=== PATIENT | female | born 1930 | race Caucasian/White ===

== ENCOUNTER 2017-04-13 13:14 | Emergency (ER) | payer BC ==
[2017-04-13 13:35] VITALS: BMI 30.9
--- NOTE | 2017-04-13 14:25 | PDOC ---
History of Present Illness - General History Source: Patient, Old Records Exam Limitations: No Limitations - History of Present Illness Initial Comments: 04/13/17 15:17 The patient is an 87 year old female with past medical history of hypertension, A-fib (on Elequis), hyperlipidemia, diabetes, and Parkinsons who arrives to the ED status post mechanical fall that occurred an hour ago. The patient states she was walking out of her assisted living home to the bus when she tripped and fell forward, landing on her hands and knees and hitting her head. She states she was able to get up with the help of EMS. She denies any LOC. In the ED, she complains of bruising to her forehead and hands. She denies any headache, focal deficits, or change in vision. The patient denies any recent illness, fever, chills, nausea, vomiting, diarrhea, cough, SOB, CP, palpitations , or urinary symptoms. PCP: Kurtis Perez Neurologist: Saravanan Hooker <Swati Brasher - Last Filed: 04/13/17 17:14> <Caleb Pozo - Last Filed: 04/15/17 08:18> - General Chief Complaint: Syncope/Near Syncope Stated Complaint: FALL Time Seen by Provider: 04/13/17 14:24 Past History <Swati Brasher - Last Filed: 04/13/17 17:14> - Past Medical History Anemia: Yes Asthma: No Cardiac Disorders: Yes (atrial fibrillation) CVA: Yes (TIA) COPD: No Diabetes: Yes (NIDDM) GI Disorders: (hernia) HTN: Yes Hypercholesterolemia: Yes Thyroid Disease: Yes (goiter) - Surgical History Abdominal Surgery: Yes (HERNIA) Orthopedic Surgery: (arthritis finger surgery) - Psycho/Social/Smoking Cessation Hx Anxiety: No Suicidal Ideation: No Smoking History: Unknown if ever smoked Have you smoked in the past 12 months: No Hx Alcohol Use: No Drug/Substance Use Hx: No Hx Substance Use Treatment: No <Caleb Pozo - Last Filed: 04/15/17 08:18> - Past Medical History Allergies/Adverse Reactions: Allergies Allergy/AdvReac Type Severity Reaction Status Date / Time naproxen [From Naprosyn] AdvReac Intermediate Verified 09/10/14 13:33 Home Medications: Ambulatory Orders Metoprolol Tartrate [Lopressor -] 50 mg PO DAILY #0 tablet 05/14/14 Carbidopa/Levodopa [Carbidopa-Levo ER 25-100 Tab] 1 each PO TID 03/30/14 Ferrous Sulfate [Feosol] 325 mg PO DAILY 03/30/14 Apixaban [Eliquis] 5 mg PO BID 04/16/14 Simvastatin [Zocor -] 20 mg PO HS 04/16/14 Sitagliptin Phosphate [Januvia -] 50 mg PO DAILY@0700 #30 tablet 05/06/14 Sodium Bicarbonate - 650 mg PO BID #60 tablet 05/06/14 Alogliptin Benzoate [Nesina] 25 mg PO DAILY 09/10/14 Ca/D3/Mag#11/Zinc/Community Chest Officer/Jonny/Bor [Caltrate 600+D Plus Tablet] 1 each PO DAILY Glipizide [Glipizide Xl] 2.5 mg PO DAILY 09/10/14 Magnesium Chloride [Slow-Mag -] 71.5 mg PO DAILY 09/10/14 Sitagliptin Phosphate [Januvia] 50 mg PO DAILY 04/13/17 Review of Systems - Review of Systems Able to Perform ROS?: Yes Comments:: 04/13/17 15:17 GENERAL/CONSTITUTIONAL: No fever or chills. No weakness. HEAD, EYES, EARS, NOSE AND THROAT: Present: bruising on forehead No change in vision. No ear pain or discharge. No sore throat. CARDIOVASCULAR: No chest pain or shortness of breath. RESPIRATORY: No cough, wheezing, or hemoptysis. GASTROINTESTINAL: No nausea, vomiting, diarrhea or constipation. GENITOURINARY: No dysuria, frequency, or change in urination. MUSCULOSKELETAL: Present: right wrist pain No neck or back pain. SKIN: No rash NEUROLOGIC: No headache, vertigo, loss of consciousness, or change in strength/ sensation. ENDOCRINE: No increased thirst. No abnormal weight change. HEMATOLOGIC/LYMPHATIC: No anemia, easy bleeding, or history of blood clots. ALLERGIC/IMMUNOLOGIC: No hives or skin allergy. <Swati Brasher - Last Filed: 04/13/17 17:14> *Physical Exam - Vital Signs Last Vital Signs Temp Pulse Resp BP Pulse Ox 97.4 F L 64 20 160/91 99 04/13/17 13:15 04/13/17 13:15 04/13/17 13:15 04/13/17 13:15 04/13/17 13:15 <Swati Brasher - Last Filed: 04/13/17 17:14> - Vital Signs Last Vital Signs Temp Pulse Resp BP Pulse Ox 97.4 F L 64 20 160/91 99 04/13/17 13:15 04/13/17 13:15 04/13/17 13:15 04/13/17 13:15 04/13/17 13:15 <Caleb Pozo - Last Filed: 04/15/17 08:18> Heart Score/ECG Review - ECG Intrepretation Comment:: 04/13/17 17:15 ECG obtained at 14:31 Atrial fibrillation at 69 bpm. Right bundle branch block, left anterior fasicular block <Swati Brasher - Last Filed: 04/13/17 17:14> ED Treatment Course - LABORATORY CBC & Chemistry Diagram: 04/13/17 15:05 04/13/17 15:05 - RADIOLOGY Radiograph Interpretation: 04/13/17 16:[address] as reviewed by Dr. Douglas reports no acute intracranial pathology. <Swati Brasher - Last Filed: 04/13/17 17:14> - LABORATORY CBC & Chemistry Diagram: 04/13/17 15:05 04/13/17 15:05 <Caleb Pozo - Last Filed: 04/15/17 08:18> *DC/Admit/Observation/Transfer - Attestations Scribe Attestion: 04/13/17 15:28 Documentation prepared by Swati Brasher, acting as medical assistant internal medicine for Caleb Pozo DO. <Swati Brasher - Last Filed: 04/13/17 17:14> - Attestations Physician Attestion: 04/13/17 14:25 I, Dr. Caleb Pozo, attest that this document has been prepared under my direction and personally reviewed by me in its entirety. I further attest, that it accurately reflects all work, treatment, procedures and medical decision -making performed by me. <Caleb Pozo - Last Filed: 04/15/17 08:18> Diagnosis at time of Disposition: Fall Qualifiers: Encounter type: initial encounter Qualified Code(s): W19.XXXA - Unspecified fall, initial encounter Closed head injury Qualifiers: Encounter type: initial encounter Qualified Code(s): S09.90XA - Unspecified injury of head, initial encounter - Discharge Dispostion Disposition: HOME Condition at time of disposition: Stable - Referrals Referrals: Kurtis Yeh MD [Primary Care Provider] - - Patient Instructions Printed Discharge Instructions: How to Prevent Falls, DI for Closed Head Injury
[2017-04-13 15:12] LABS: BASOPHIL 0.9 % (0-2.0); EOSINOPHIL 1.8 % (0-4.5); MCH 32.1 pg (25.7-33.7); MCHC 33.4 g/dl (32.0-36.0); MEAN CELL VOLUME 96.3 fl (80-96); MEAN PLT VOLUME 8.7 fl (7.5-11.1); NEUTROPHILS 75.1 % (42.8-82.8); PLATELET COUNT 194 K/MM3 (134-434); WHITE BLOOD COUNT 5.6 K/mm3 (4.0-10.0)
[2017-04-13 15:28] LABS: INR 1.51 (0.82-1.09); PROTHROMBIN TIME (PATIENT) 16.7 SEC (9.98-11.88)
[2017-04-13 15:36] LABS: ALBUMIN 3.8 g/dl (3.4-5.0); ANION GAP 10 (8-16); CALCIUM 9.1 mg/dL (8.5-10.1); CO2 21 mmol/L (21-32); CREATININE 1.7 mg/dL (0.55-1.02); GLUCOSE,RANDOM 175 mg/dL (74-106); SGOT/AST 15 U/L (15-37); SGPT/ALT 8 U/L (12-78); TOT PROT 7.7 g/dl (6.4-8.2)
[2017-04-13 15:37] LABS: ALK PHOS 103 U/L (45-117)
[2017-04-13 19:49] VITALS: PULSE 78
[2017-04-13 22:08] VITALS: BP 121/73; TEMP 98.6
--- NOTE | 2017-04-13 23:02 | PDOC ---
*Physical Exam - Vital Signs Last Vital Signs Temp Pulse Resp BP Pulse Ox 98.6 F 78 18 121/73 99 04/13/17 22:02 04/13/17 22:02 04/13/17 22:02 04/13/17 22:02 04/13/17 22:02 ED Treatment Course - LABORATORY CBC & Chemistry Diagram: 04/13/17 15:05 04/13/17 15:05 - ADDITIONAL ORDERS Additional order review: Laboratory Results 04/13/17 04/13/17 15:05 15:05 INR 1.51 H D Sodium 139 Potassium 4.7 Chloride 108 H Carbon Dioxide 21 Anion Gap 10 BUN 31 H Creatinine 1.7 H D Creat Clearance w eGFR 28.50 Random Glucose 175 H D Calcium 9.1 Total Bilirubin 1.0 D AST 15 ALT 8 L Alkaline Phosphatase 103 D Total Protein 7.7 Albumin 3.8 04/13/17 15:05 RBC 3.68 MCV 96.3 H MCHC 33.4 RDW 13.0 MPV 8.7 D Neutrophils % 75.1 Lymphocytes % 13.5 Monocytes % 8.7 Eosinophils % 1.8 Basophils % 0.9 Medical Decision Making - Medical Decision Making 04/13/17 23:01 ct scan negative times 2. Pt to be discharged with her daughter. Pt to see pcp on *DC/Admit/Observation/Transfer Diagnosis at time of Disposition: Fall Qualifiers: Encounter type: initial encounter Qualified Code(s): W19.XXXA - Unspecified fall, initial encounter Closed head injury Qualifiers: Encounter type: initial encounter Qualified Code(s): S09.90XA - Unspecified injury of head, initial encounter - Discharge Dispostion Disposition: HOME Condition at time of disposition: Stable Admit: No - Referrals Referrals: Kurtis Yeh MD [Primary Care Provider] - - Patient Instructions Printed Discharge Instructions: How to Prevent Falls, DI for Closed Head Injury
--- NOTE | 2017-04-14 13:10 | EKG ---
Test Reason : Blood Pressure : / mmHG Vent. Rate : 069 BPM Atrial Rate : 070 BPM P-R Int : 000 ms QRS Dur : 120 ms QT Int : 416 ms P-R-T Axes : 000 -57 -16 degrees QTc Int : 445 ms POOR DATA QUALITY, INTERPRETATION MAY BE ADVERSELY AFFECTED ATRIAL FIBRILLATION RIGHT BUNDLE BRANCH BLOCK LEFT ANTERIOR FASCICULAR BLOCK BIFASCICULAR BLOCK ABNORMAL ECG WHEN COMPARED WITH ECG OF 02-MAY-2014 11:16, ATRIAL FIBRILLATION HAS REPLACED SINUS RHYTHM REPEAT EKG IF CLINICALLY INDICATED Confirmed by TRAN STERN MD ([id number]) on 04/14/2017 1:10:17 PM Referred By: Confirmed By:TRAN STERN MD
== END 2017-04-13 23:17 | disposition home or self-care (01) ==
LOC: JER 13:14
DX: S09.8XXA Other specified injuries of head, initial encounter (principal); W01.0XXA Fall on same level from slipping, tripping and stumbling without subsequent striking against object, initial encounter; Y93.01 Activity, walking, marching and hiking; Y92.098 Other place in other non-institutional residence as the place of occurrence of the external cause; I48.91 Unspecified atrial fibrillation; Z79.01 Long term (current) use of anticoagulants; I10 Essential (primary) hypertension; E78.00 Pure hypercholesterolemia, unspecified; E11.9 Type 2 diabetes mellitus without complications; Z79.84 Long term (current) use of oral hypoglycemic drugs; G20 Parkinson's disease; E04.9 Nontoxic goiter, unspecified; Z86.73 Personal history of transient ischemic attack (TIA), and cerebral infarction without residual deficits
CPT/HCPCS: 36415; 70450-TC; 73110-TC-RT; 73130-TC-RT; 80053; 85025; 85610; 93005; 93010; 99283-25

== ENCOUNTER 2018-02-28 15:35 | Observation (INO) | payer BC ==
[2018-02-28] MEDS ORDERED: SODIUM CHLORIDE 0.9% 1000 ML INFUS.BAG IV ONE (16:16)
--- NOTE | 2018-02-28 16:40 | PDOC ---
History of Present Illness - General History Source: Patient, Care Provider, Family Exam Limitations: No Limitations - History of Present Illness Initial Comments: 02/28/18 16:36 88-year-old female history of Parkinson's dementia, anemia, hypertension, hyperlipidemia chronic kidney disease here today for concerns for a cough throughout the night. Patient's daughter she is also complaining recently of abdominal pain has had increased lethargy and decreased by mouth intake patient denies any fevers or chills no nausea or vomiting states that when she coughs her abdomen was hurting has had UTIs in the past no change recent medications which could cause a chronic cough cough is nonproductive no chest pain no current shortness of breath overall the daughter was she may be slightly dehydrated decreased by mouth intake recently <Florencia Ordonez - Last Filed: 02/28/18 17:37> <Ct Thomas - Last Filed: 02/28/18 19:21> - General Chief Complaint: Respiratory Stated Complaint: COUGH Past History - Past Medical History Anemia: Yes Asthma: No Cardiac Disorders: Yes (atrial fibrillation) CVA: Yes (TIA) COPD: No Diabetes: Yes (NIDDM) GI Disorders: (hernia) HTN: Yes Hypercholesterolemia: Yes Thyroid Disease: Yes (goiter) - Surgical History Abdominal Surgery: Yes (HERNIA) Orthopedic Surgery: (arthritis finger surgery) - Suicide/Smoking/Psychosocial Hx Smoking History: Never smoked Have you smoked in the past 12 months: No Hx Alcohol Use: No Drug/Substance Use Hx: No Hx Substance Use Treatment: No <Florencia Ordonez - Last Filed: 02/28/18 17:37> <Ct Thomas - Last Filed: 02/28/18 19:21> - Past Medical History Allergies/Adverse Reactions: Allergies Allergy/AdvReac Type Severity Reaction Status Date / Time naproxen [From Naprosyn] AdvReac Intermediate Verified 02/28/18 15:38 Home Medications: Ambulatory Orders Metoprolol Tartrate [Lopressor -] 50 mg PO DAILY #0 tablet 01/04/14 Carbidopa/Levodopa [Carbidopa-Levo ER 25-100 Tab] 1 each PO QID 03/30/14 Ferrous Sulfate [Feosol] 325 mg PO DAILY 03/30/14 Apixaban [Eliquis] 2.5 mg PO BID 04/16/14 Simvastatin [Zocor -] 20 mg PO HS 04/16/14 Oliver/D3/Mag11/Zinc/Electrical Test Engineer/Jonny/Bor [Caltrate 600+D Plus Tablet] 2 each PO DAILY Glipizide [Glipizide Xl] 2.5 mg PO DAILY 09/10/14 Magnesium Chloride [Slow-Mag -] 71.5 mg PO DAILY 09/10/14 Sitagliptin Phosphate [Januvia] 50 mg PO DAILY 04/13/17 B2/Vits A,C,E/Lut/Zeaxanth/Min [Icaps Tablet] 2 each PO DAILY 02/28/18 Omeprazole 20 mg PO DAILY 02/28/18 Pramipexole Dihydrochloride [Mirapex -] 0.25 mg PO AM 02/28/18 Pramipexole Dihydrochloride [Mirapex -] 0.5 mg PO HS 02/28/18 Simvastatin 20 mg PO DAILY 02/28/18 Review of Systems - Review of Systems Constitutional: No: Chills, Diaphoresis, Fever HEENTM: No: Blurred Vision Respiratory: Yes: Cough. No: Orthopnea Cardiac (ROS): No: Chest Pain ABD/GI: Yes: Other (abd pain). No: Abdominal Distended : No: Burning, Dysuria, Discharge Musculoskeletal: No: Back Pain, Gout All Other Systems: Reviewed and Negative <Florencia Ordonez - Last Filed: 02/28/18 17:37> *Physical Exam - Vital Signs Last Vital Signs Temp Pulse Resp BP Pulse Ox 99 F 81 18 95/51 99 02/28/18 15:35 02/28/18 15:35 02/28/18 15:35 02/28/18 15:35 02/28/18 15:35 - Physical Exam General Appearance: Yes: Appropriately Dressed HEENT: positive: Normal ENT Inspection, Other (dry mucous membranes) Neck: negative: Trachea midline Respiratory/Chest: positive: Lungs Clear, Normal Breath Sounds Cardiovascular: positive: Regular Rhythm, Regular Rate, S1, S2 Gastrointestinal/Abdominal: positive: Normal Bowel Sounds, Flat, Soft. negative : Tender Musculoskeletal: positive: Normal Inspection. negative: CVA Tenderness Extremity: positive: Normal Capillary Refill Integumentary: positive: Normal Color, Dry, Warm Neurologic: positive: Fully Oriented, Alert, Normal Mood/Affect, Motor Strength 5/5 <RogertavoFlorencia - Last Filed: 02/28/18 17:37> - Vital Signs Last Vital Signs Temp Pulse Resp BP Pulse Ox 98 F 61 18 150/65 100 02/28/18 17:22 02/28/18 17:22 02/28/18 17:22 02/28/18 17:22 02/28/18 17:22 <Ct Thomas - Last Filed: 02/28/18 19:21> Heart Score/ECG Review #1 General ECG Interpretation: Sinus Rhythm, Normal Rate, Normal Intervals, No acute ischemic changes (twi III, AVF V1-V3) Compared to previous ECG there are: No significant change (no change 04/13/17) <MeryFlorencia - Last Filed: 02/28/18 17:37> ED Treatment Course - LABORATORY CBC & Chemistry Diagram: 02/28/18 16:45 02/28/18 16:45 - RADIOLOGY Radiology Studies Ordered: Category Date Time Status CHEST PA & LAT [RAD] Stat Radiology 02/28/18 16:16 Ordered <MeryFlorencia - Last Filed: 02/28/18 17:37> - LABORATORY CBC & Chemistry Diagram: 02/28/18 16:45 02/28/18 16:45 - ADDITIONAL ORDERS Additional order review: Laboratory Results 02/28/18 02/28/18 02/28/18 16:45 16:45 16:45 Sodium 128 L Potassium 5.0 Chloride 98 Carbon Dioxide 22 Anion Gap 8 BUN 32 H Creatinine 2.2 H Creat Clearance w eGFR 21.11 Random Glucose 314 H* Calcium 8.6 Total Bilirubin 1.0 AST 25 ALT 5 L Alkaline Phosphatase 57 Troponin I 0.09 H Total Protein 6.7 Albumin 3.4 L Urine Color Yellow Urine Appearance Cloudy Urine pH 5.0 Ur Specific [place] 1.025 Urine Protein 3+ H Urine Glucose (UA) Trace H Urine Ketones 1+ H Urine Blood 1+ H Urine Nitrite Negative Urine Bilirubin 1+ H Urine Urobilinogen 0.2 Ur Leukocyte Esterase 3+ H Urine RBC 10-20 Urine WBC >100 Ur Epithelial Cells Few Amorphous Urates Few Urine Bacteria Moderate 02/28/18 16:45 RBC 3.71 MCV 96.0 MCHC 33.5 RDW 11.8 MPV 8.0 Neutrophils % 93.9 H Lymphocytes % 2.4 L Monocytes % 3.6 L Eosinophils % 0.0 Basophils % 0.1 - Medications Given in the ED: ED Medications Discontinued Medications Generic Name Dose Route Start Last Admin Trade Name Nata PRN Reason Stop Dose Admin Aspirin 162 mg 02/28/18 18:12 02/28/18 18:38 Asa - PO 02/28/18 18:13 Not Given ONCE ONE Ceftriaxone Sodium 1,000 mg/ 50 mls @ 100 mls/hr 02/28/18 17:36 02/28/18 18: 22 Dextrose IVPB 02/28/18 18:05 100 mls/hr ONCE ONE Administration Sodium Chloride 500 ml 02/28/18 16:16 02/28/18 16:49 Normal Saline - IV 02/28/18 16:17 500 ml ONCE ONE Administration <Ct Thomas - Last Filed: 02/28/18 19:21> Medical Decision Making - Medical Decision Making 02/28/18 16:40 88-year-old female with history His dementia chronic kidney disease hypertension hyperlipidemia with a thin she complaints of abdominal pain now complaining of cough differential includes pneumonia, anemia, worsening renal function, dehydration urinary tract infection or other infection plan EKG basic labs chest x-ray UA we'll give the patient's will hydration due to her dry mucous membranes concerns with mild dehydration pain is also discussed patient's PCP 02/28/18 17:37 Patient with elevated blood sugar at 300 acute renal insufficiency with creatinine of 2.2. Was given a 500 mL bolus we'll give an additional 500 mL lactate and blood cultures ordered patient's white count was elevated at 19 appears to have a urinary tract infection will cover with ceftriaxone. Old urine cultures reviewed no significant growth recorded in the past we'll recheck glucose and Her with insulin as needed will admit for acute renal insufficiency hyperglycemia and UTI <Florencia Ordonez - Last Filed: 02/28/18 17:37> - Medical Decision Making 02/28/18 19:[address] Aguila, high school science teacher, awaiting call back. 02/28/18 19:[address] Garcia, superintendent overhead distribution for Dr. Aguila, case was discussed. <Ct Thomas - Last Filed: 02/28/18 19:21> *DC/Admit/Observation/Transfer - Discharge Dispostion Decision to Admit order: Yes <Florencia Ordonez - Last Filed: 02/28/18 17:37> - Attestations Scribe Attestion: 02/28/18 19:[address] Thomas, acting as medical representative for Florencia Ordonez MD. <Ct Thomas - Last Filed: 02/28/18 19:21> Diagnosis at time of Disposition: Acute on chronic renal failure, Urinary tract infection, Hyperglycemia - Discharge Dispostion Condition at time of disposition: Stable
[2018-02-28 17:03] LABS: URINE COLOR YELLOW
[2018-02-28 17:04] LABS: URINE APPEARANCE CLOUDY; URINE BILIRUBIN 1+ (NEGATIVE); URINE GLUCOSE (UA) TRACE (NEGATIVE); URINE KETONE 1+ (NEGATIVE); URINE LEUK ESTERASE 3+ (NEGATIVE); URINE NITRITE NEGATIVE (NEGATIVE); URINE PROTEIN 3+ (NEGATIVE); URINE UROBILINOGEN 0.2 (0.2-1.0)
[2018-02-28 17:16] LABS: ALBUMIN 3.4 g/dl (3.5-5.0); ALK PHOS 57 U/L (32-92); ANION GAP 8 (8-16); BASO % 0.1 % (0-2.0); BLOOD UREA NITROGEN 32 mg/dl (7-18); CALCIUM 8.6 mg/dl (8.4-10.2); CHLORIDE 98 mmol/L (98-107); CO2 22 mmol/L (22-28); CREATININE 2.2 mg/dl (0.6-1.3); HEMATOCRIT 35.6 % (32.4-45.2); HEMOGLOBIN 11.9 GM/dl (10.7-15.3); LYMPH % 2.4 % (8-40); MCH 32.2 pg (25.7-33.7); MCHC 33.5 g/dl (32.0-36.0); MONO % 3.6 % (3.8-10.2); NEUT % 93.9 % (42.8-82.8); PLATELET COUNT 201 K/MM3 (134-434); RBC 3.71 M/mm3 (3.60-5.2); RDW 11.8 % (11.6-15.6); SGOT/AST 25 U/L (10-42); SGPT/ALT 5 U/L (10-40); SODIUM 128 mmol/L (136-145); TOT PROT 6.7 g/dl (6.4-8.3); WHITE BLOOD COUNT 19.9 K/mm3 (4.0-10.8)
[2018-02-28 17:17] LABS: URINE WBC >100 (0-5)
[2018-02-28 17:18] LABS: AMORP URATES FEW /hpf (NONE SEEN); EPI CELLS FEW /HPF; URINE BACTERIA MODERATE /hpf (NEGATIVE)
[2018-02-28 17:21] LABS: GLUCOSE,RANDOM 314 mg/dl (74-106)
[2018-02-28] MEDS ORDERED: CEFTRIAXONE 1,000 MG in DEXTROSE 5%-WATER - 50 ML IVPB ONE (17:36)
[2018-02-28] MEDS ORDERED: ASPIRIN 81 MG CHEWABLE TABLETS PO ONE (18:12)
[2018-02-28] MEDS ORDERED: cefTRIAXone SODIUM 1 GM VIAL ONE (18:15)
[2018-02-28] MEDS ORDERED: ASPIRIN 81 MG CHEWABLE TABLETS ONE (18:25)
[2018-02-28] MEDS ORDERED: SODIUM CHLORIDE 500 ML IV ONE (18:53)
[2018-02-28] MEDS ORDERED: HEMOQUE TEST 1 EACH EACH ONE ×4 (18:57→21:10)
[2018-02-28] MEDS ORDERED: INSULIN REGULAR HUMAN 100 UNITS/ML *VIAL ONE (19:10)
[2018-02-28] MEDS ORDERED: INSULIN REGULAR HUMAN 100 UNITS/ML *VIAL IVPUSH ONE (19:45)
--- NOTE | 2018-02-28 19:46 | PDOC ---
*Physical Exam - Vital Signs Last Vital Signs Temp Pulse Resp BP Pulse Ox 98 F 61 18 150/65 100 02/28/18 17:22 02/28/18 17:22 02/28/18 17:22 02/28/18 17:22 02/28/18 17:22 ED Treatment Course - LABORATORY CBC & Chemistry Diagram: 02/28/18 16:45 02/28/18 16:45 - ADDITIONAL ORDERS Additional order review: Laboratory Results 02/28/18 02/28/18 02/28/18 18:00 16:45 16:45 Sodium 128 L Potassium 5.0 Chloride 98 Carbon Dioxide 22 Anion Gap 8 BUN 32 H Creatinine 2.2 H Creat Clearance w eGFR 21.11 Random Glucose 314 H* Lactic Acid 2.0 Calcium 8.6 Total Bilirubin 1.0 AST 25 ALT 5 L Alkaline Phosphatase 57 Troponin I 0.09 H Total Protein 6.7 Albumin 3.4 L Urine Color Urine Appearance Urine pH Ur Specific [place] Urine Protein Urine Glucose (UA) Urine Ketones Urine Blood Urine Nitrite Urine Bilirubin Urine Urobilinogen Ur Leukocyte Esterase Urine RBC Urine WBC Ur Epithelial Cells Amorphous Urates Urine Bacteria 02/28/18 16:45 Sodium Potassium Chloride Carbon Dioxide Anion Gap BUN Creatinine Creat Clearance w eGFR Random Glucose Lactic Acid Calcium Total Bilirubin AST ALT Alkaline Phosphatase Troponin I Total Protein Albumin Urine Color Yellow Urine Appearance Cloudy Urine pH 5.0 Ur Specific [place] 1.025 Urine Protein 3+ H Urine Glucose (UA) Trace H Urine Ketones 1+ H Urine Blood 1+ H Urine Nitrite Negative Urine Bilirubin 1+ H Urine Urobilinogen 0.2 Ur Leukocyte Esterase 3+ H Urine RBC 10-20 Urine WBC >100 Ur Epithelial Cells Few Amorphous Urates Few Urine Bacteria Moderate 02/28/18 16:45 RBC 3.71 MCV 96.0 MCHC 33.5 RDW 11.8 MPV 8.0 Neutrophils % 93.9 H Lymphocytes % 2.4 L Monocytes % 3.6 L Eosinophils % 0.0 Basophils % 0.1 - Medications Given in the ED: ED Medications Discontinued Medications Generic Name Dose Route Start Last Admin Trade Name Freq PRN Reason Stop Dose Admin Aspirin 162 mg 02/28/18 18:12 02/28/18 18:38 Asa - PO 02/28/18 18:13 Not Given ONCE ONE Ceftriaxone Sodium 1,000 mg/ 50 mls @ 100 mls/hr 02/28/18 17:36 02/28/18 18: 22 Dextrose IVPB 02/28/18 18:05 100 mls/hr ONCE ONE Administration Sodium Chloride 500 ml 02/28/18 16:16 02/28/18 16:49 Normal Saline - IV 02/28/18 16:17 500 ml ONCE ONE Administration *DC/Admit/Observation/Transfer Diagnosis at time of Disposition: Acute on chronic renal failure, Urinary tract infection, Hyperglycemia - Discharge Dispostion Condition at time of disposition: Stable - Referrals Referrals: Kurtis Yeh MD [Primary Care Provider] - - Patient Instructions - Post Discharge Activity
--- NOTE | 2018-02-28 20:02 | HP ---
CHIEF COMPLAINT: Cough, Decreased Appetite PCP: Dr. Perez HISTORY OF PRESENT ILLNESS: This is a 88 y/o woman with a PMHx of Dementia, Anemia, HTN, CKD, Afib (on Eliquis), Thyroid (goiter). Who presents to the ED with her daughter for a non- productive cough, abdominal pain, lethargy, decreased PO intake. Patient's daughter reports that the patient reported to her having a cough overnight with abdominal pain. The daughter also reports that her mother's appetite has been decreased and she has had increased lethargy. The patient reports having burning with urination and spasms to her abdomen. The patient denies fever, chills, SOB, CP, palpitations, N/V/D, constipation. ER course was notable for: (1) UTI- +3 leukocyte esterase, +1 ketones, > 100 WBCs (2) WBC 19.9 (3) Glucose 314 (4) Troponin I 0.09 (5) BUN 32, Cr 2.2 Recent Travel: None PAST MEDICAL HISTORY: See HPI PAST SURGICAL HISTORY: B/L Cataract removal Hernia Repair Loop Monitor (non-operational - battery) Social History: Smoking: Never Alcohol: None Drugs: None Lives alone, Independent Family History: Non-contributory Allergies naproxen [From Naprosyn] Adverse Reaction (Intermediate, Verified 02/28/18 15:38 ) HOME MEDICATIONS: Home Medications Medication Instructions Recorded Metoprolol Tartrate [Lopressor -] 50 mg PO DAILY #0 tablet 01/04/14 Carbidopa/Levodopa [Carbidopa-Levo 1 each PO QID 03/30/14 ER 25-100 Tab] Ferrous Sulfate [Feosol] 325 mg PO DAILY 03/30/14 Apixaban [Eliquis] 2.5 mg PO BID 04/16/14 Simvastatin [Zocor -] 20 mg PO HS 04/16/14 Oliver/D3/Mag11/Zinc/Office Machine Inspector/Jonny/Bor 2 each PO DAILY 09/10/14 [Caltrate 600+D Plus Tablet] Glipizide [Glipizide Xl] 2.5 mg PO DAILY 09/10/14 Magnesium Chloride [Slow-Mag -] 71.5 mg PO DAILY 09/10/14 Sitagliptin Phosphate [Januvia] 50 mg PO DAILY 04/13/17 B2/Vits A,C,E/Lut/Zeaxanth/Min 2 each PO DAILY 02/28/18 [Icaps Tablet] Omeprazole 20 mg PO DAILY 02/28/18 Pramipexole Dihydrochloride 0.25 mg PO AM 02/28/18 [Mirapex -] Pramipexole Dihydrochloride 0.5 mg PO HS 02/28/18 [Mirapex -] Simvastatin 20 mg PO DAILY 02/28/18 REVIEW OF SYSTEMS CONSTITUTIONAL: loss of appetite Absent: fever, chills, diaphoresis, generalized weakness, malaise, weight change HEENT: Absent: rhinorrhea, nasal congestion, throat pain, throat swelling, difficulty swallowing, mouth swelling, ear pain, eye pain, visual changes CARDIOVASCULAR: Absent: chest pain, syncope, palpitations, irregular heart rate, lightheadedness , peripheral edema RESPIRATORY: cough Absent: shortness of breath, dyspnea with exertion, orthopnea, wheezing, stridor, hemoptysis GASTROINTESTINAL:abdominal pain Absent: abdominal distension, nausea, vomiting, diarrhea, constipation, melena , hematochezia GENITOURINARY: dysuria Absent: frequency, urgency, hesitancy, hematuria, flank pain, genital pain MUSCULOSKELETAL: Absent: myalgia, arthralgia, joint swelling, back pain, neck pain SKIN: Absent: rash, itching, pallor HEMATOLOGIC/IMMUNOLOGIC: Absent: easy bleeding, easy bruising, lymphadenopathy, frequent infections ENDOCRINE: Absent: unexplained weight gain, unexplained weight loss, heat intolerance, cold intolerance NEUROLOGIC: Absent: headache, focal weakness or paresthesias, dizziness, unsteady gait, seizure, mental status changes, bladder or bowel incontinence PSYCHIATRIC: Absent: anxiety, depression, suicidal or homicidal ideation, hallucinations. PHYSICAL EXAMINATION Vital Signs - 24 hr 02/28/18 02/28/18 15:35 17:22 Temperature 99 F 98 F Pulse Rate 81 Pulse Rate [ 61 Left Apical] Respiratory 18 18 Rate Blood Pressure 95/51 Blood Pressure 150/65 [Left Arm] O2 Sat by Pulse 99 100 Oximetry (%) GENERAL: Awake, alert, and oriented x2, in no acute distress. HEAD: Normal with no signs of trauma. EYES: Pupils equal, round and reactive to light, extraocular movements intact, sclera anicteric, conjunctiva clear. No lid lag. EARS, NOSE, THROAT: Ears normal, nares patent, oropharynx clear without exudates. Dry mucous membranes. NECK: Normal range of motion, supple without lymphadenopathy, JVD, or masses. LUNGS: Breath sounds equal, clear to auscultation bilaterally. No wheezes, and no crackles. No accessory muscle use. HEART: Irregular rate and rhythm, normal S1 and S2 without murmur, rub or gallop. ABDOMEN: Soft, nontender, not distended, normoactive bowel sounds, no guarding, no rebound, no masses. No hepatomegaly or splenomegaly. MUSCULOSKELETAL: Normal range of motion at all joints. No bony deformities or tenderness. No CVA tenderness. UPPER EXTREMITIES: 2+ pulses, warm, well-perfused. No cyanosis. No clubbing. No peripheral edema. LOWER EXTREMITIES: 2+ pulses, warm, well-perfused. No calf tenderness. No peripheral edema. NEUROLOGICAL: Cranial nerves II-XII intact. Normal speech. Normal gait. PSYCHIATRIC: Cooperative. Good eye contact. Appropriate mood and affect. SKIN: Warm, dry, normal turgor, no rashes or lesions noted, normal capillary refill. Laboratory Results - last 24 hr 02/28/18 02/28/18 02/28/18 16:45 16:45 16:45 WBC 19.9 H RBC 3.71 Hgb 11.9 Hct 35.6 MCV 96.0 MCH 32.2 MCHC 33.5 RDW 11.8 Plt Count 201 MPV 8.0 Absolute Neuts (auto) 18.7 Neutrophils % 93.9 H Lymphocytes % 2.4 L Monocytes % 3.6 L Eosinophils % 0.0 Basophils % 0.1 Sodium 128 L Potassium 5.0 Chloride 98 Carbon Dioxide 22 Anion Gap 8 BUN 32 H Creatinine 2.2 H Creat Clearance w eGFR 21.11 Random Glucose 314 H* Lactic Acid Calcium 8.6 Total Bilirubin 1.0 AST 25 ALT 5 L Alkaline Phosphatase 57 Troponin I Total Protein 6.7 Albumin 3.4 L Urine Color Yellow Urine Appearance Cloudy Urine pH 5.0 Ur Specific [place] 1.025 Urine Protein 3+ H Urine Glucose (UA) Trace H Urine Ketones 1+ H Urine Blood 1+ H Urine Nitrite Negative Urine Bilirubin 1+ H Urine Urobilinogen 0.2 Ur Leukocyte Esterase 3+ H Urine RBC 10-20 Urine WBC >100 Ur Epithelial Cells Few Amorphous Urates Few Urine Bacteria Moderate 02/28/18 02/28/18 16:45 18:00 WBC RBC Hgb Hct MCV MCH MCHC RDW Plt Count MPV Absolute Neuts (auto) Neutrophils % Lymphocytes % Monocytes % Eosinophils % Basophils % Sodium Potassium Chloride Carbon Dioxide Anion Gap BUN Creatinine Creat Clearance w eGFR Random Glucose Lactic Acid 2.0 Calcium Total Bilirubin AST ALT Alkaline Phosphatase Troponin I 0.09 H Total Protein Albumin Urine Color Urine Appearance Urine pH Ur Specific [place] Urine Protein Urine Glucose (UA) Urine Ketones Urine Blood Urine Nitrite Urine Bilirubin Urine Urobilinogen Ur Leukocyte Esterase Urine RBC Urine WBC Ur Epithelial Cells Amorphous Urates Urine Bacteria ASSESSMENT/PLAN: 88 y/o woman with a PMHx of Dementia, Anemia, HTN, HLD, CKD, Afib (on Eliquis), Thyroid (Goiter). Placed on Tele Observation for UTI, Elevated Troponin, Hyperglycemia, Dehydration for further evaluation of their emergent condition. Problems: 1. UTI 2. Elevated Troponin 3. Afib 4. Hyperglycemia 5. Acute on Chronic kidney Disease 6. Dehydration Plan: 1. UTI - UA +3 leukocyte esterase, +1 ketones, > 100 WBC - Urine culture-pending - WBC 19.9 - LA 2.0 - Ceftriaxone given in ED will continue - Monitor vitals - repeat CBC, BMP in am 2. Elevated Troponin - Likely secondary to CKD vs ACS - Cardiac monitoring - Serial enzymes - Appreciate Cardiology consult-notified by ED attending - Asa given in ED, continue - EKG reviewed x2 - Serial EKGs 3. Afib - stable - [id number] - EKG reviewed - Continue Eliquis 4. Hyperglycemia - Likely secondary to dehydration vs infection - NS 500ml x2 bolus given in ED - BGMs - Continue home meds - ISS - HgbA1c in am 5. Acute on Chronic Kidney Disease - hx CKD - Cr 2.2, no avail lab to compare - NS bolus given - Monitor renal function - Avoid nephrotoxic agents 6. Dehydration - Likely secondary to poor oral intake - IVF - Encourage small frequent meals - RD consult 7. FEN - NS@42cc/hr - Replete lytes prn - Low Na, Diabetic Diet 8. DVT ppx - SCDs - Continue Eliquis Code Status: Full Code Dispo: Tele Observation Problem List - Problem (1) Urinary tract infection Code(s): N39.0 - URINARY TRACT INFECTION, SITE NOT SPECIFIED (2) Elevated troponin Code(s): R74.8 - ABNORMAL LEVELS OF OTHER SERUM ENZYMES (3) Acute on chronic renal failure Code(s): N17.9 - ACUTE KIDNEY FAILURE, UNSPECIFIED; N18.9 - CHRONIC KIDNEY DISEASE, UNSPECIFIED (4) Hyperglycemia Code(s): R73.9 - HYPERGLYCEMIA, UNSPECIFIED (5) Dehydration Code(s): E86.0 - DEHYDRATION (6) Anemia Code(s): D64.9 - ANEMIA, UNSPECIFIED (7) Diabetes mellitus Code(s): E11.9 - TYPE 2 DIABETES MELLITUS WITHOUT COMPLICATIONS (8) HTN (hypertension) Code(s): I10 - ESSENTIAL (PRIMARY) HYPERTENSION Visit type - Emergency Visit Emergency Visit: Yes Care time: The patient presented to the Emergency Department on the above date and was hospitalized for further evaluation of their emergent condition. - New Patient This patient is new to me today: Yes Date on this admission: 02/28/18 - Critical Care Critical Care patient: No Hospitalist Screening - Colonoscopy Questionnaire Colonoscopy Questionnaire: Colonoscopy Questionnaire - Patient: 50 - 75 years old and never had a screening colonoscopy: Unknown History of colon or rectal polyps, or CA: Unknown History of IBD, Crohn's disease or UC: Unknown History of abdominal radiation therapy as a child: Unknown - Relative: 1 with colon or rectal CA, or polyps at age 60 or younger: Unknown Colon or rectal CA diagnosed at age 45 or younger: Unknown Multiple relatives with colon or rectal CA: Unknown - Outcome: Screening Result: Negative Screen
[2018-02-28] MEDS ORDERED: SODIUM CHLORIDE 1,000 ML IV SCH (20:45)
[2018-02-28] MEDS ORDERED: SODIUM CHLORIDE 100 ML IV STA (21:02)
[2018-02-28] MEDS ORDERED: HEPARIN NA (PORCINE) 5,000 UNITS/ML 1ML VIAL SQ SCH (22:00)
[2018-02-28] MEDS ORDERED: PRAMIPEXOLE DIHYDROCHLORIDE 0.25 MG TABLET PO SCH (22:00)
[2018-02-28] MEDS ORDERED: ATORVASTATIN CA 10 MG TABLET (FP) PO SCH (22:00)
[2018-02-28 22:20] VITALS: BMI 31.4
[2018-02-28] MEDS: APIXABAN 2.5 MG TABLET PO SCH (22:22)
[2018-03-01] MEDS ORDERED: PRAMIPEXOLE DIHYDROCHLORIDE 0.25 MG TABLET PO SCH (07:00)
[2018-03-01] MEDS ORDERED: INSULIN SLIDING SCALE (NOVOLOG) 1 VIAL SQ SCH (07:00)
[2018-03-01] MEDS ORDERED: sitaGLIPtin PHOSPHATE 50 MG TABLET PO SCH (07:00)
[2018-03-01] MEDS ORDERED: glipiZIDE-XL 2.5 MG TAB.ER.24 PO SCH (07:00)
--- NOTE | 2018-03-01 07:13 | PN ---
Physical Exam: SUBJECTIVE: Patient seen and examined, sitting in bedside chair tolerating diet , denies any chest pain or shortness of breath, does report slight cough after eating OBJECTIVE: Patient is a 88 y/o woman with a PMHx of Dementia, Anemia, HTN, CKD , Afib (on Eliquis), and hypothyroid (goiter). Patient was admitted from the emergency department for emergent condition. Vital Signs Period Temp Pulse Resp BP Sys/Lewis Pulse Ox Last 24 Hr 97.4 F-99 F 61-82 16-20 86-150/47-65 99-100 GENERAL: The patient is awake, alert, and fully oriented, in no acute distress. HEAD: Normal with no signs of trauma. EYES: PERRL, extraocular movements intact, sclera anicteric, conjunctiva clear. No ptosis. ENT: Ears normal, nares patent, oropharynx clear without exudates, moist mucous membranes. NECK: Trachea midline, full range of motion, supple. LUNGS: Breath sounds equal, clear to auscultation bilaterally, no wheezes, no crackles, no accessory muscle use. HEART: irregular rate and rhythm, S1, S2 without murmur, rub or gallop. ABDOMEN: Soft, nontender, nondistended, normoactive bowel sounds, no guarding, no rebound, no hepatosplenomegaly, no masses. EXTREMITIES: 2+ pulses, warm, well-perfused, no edema. NEUROLOGICAL: Cranial nerves II through XII grossly intact. Normal speech, gait not observed. PSYCH: Normal mood, normal affect. SKIN: Warm, dry, normal turgor, no rashes or lesions noted Laboratory Results - last 24 hr CBC WBC 12.7 K/mm3 (4.0-10.8) H 03/01/18 07:40 RBC 3.17 M/mm3 (3.60-5.2) L 03/01/18 07:40 Hgb 10.1 GM/dl (10.7-15.3) L 03/01/18 07:40 Hct 30.3 % (32.4-45.2) L 03/01/18 07:40 MCV 95.4 fl (80-96) 03/01/18 07:40 MCH 31.7 pg (25.7-33.7) 03/01/18 07:40 MCHC 33.2 g/dl (32.0-36.0) 03/01/18 07:40 RDW 12.1 % (11.6-15.6) 03/01/18 07:40 Plt Count 178 K/MM3 (134-434) 03/01/18 07:40 MPV 7.9 fl (7.5-11.1) 03/01/18 07:40 Absolute Neuts (auto) 11.0 # 03/01/18 07:40 Neutrophils % 86.6 % (42.8-82.8) H 03/01/18 07:40 Lymphocytes % 7.7 % (8-40) L 03/01/18 07:40 Monocytes % 5.0 % (3.8-10.2) 03/01/18 07:40 Eosinophils % 0.4 % (0-4.5) 03/01/18 07:40 Basophils % 0.3 % (0-2.0) 03/01/18 07:40 CMP Sodium 135 mmol/L (136-145) L 03/01/18 07:40 Potassium 4.3 mmol/L (3.5-5.1) 03/01/18 07:40 Chloride 105 mmol/L (98-107) 03/01/18 07:40 Carbon Dioxide 21 mmol/L (22-28) L 03/01/18 07:40 Anion Gap 9 (8-16) 03/01/18 07:40 BUN 38 mg/dl (7-18) H 03/01/18 07:40 Creatinine 1.9 mg/dl (0.6-1.3) H 03/01/18 07:40 Creat Clearance w eGFR 25.01 (>60) 03/01/18 07:40 POC Glucometer 136 UNITS (80-120) 03/01/18 05:42 Random Glucose 122 mg/dl (74-106) H D 03/01/18 07:40 Hemoglobin A1c % 8.2 % (4.8-6.0) H 03/01/18 07:40 Lactic Acid 2.0 mmol/L (0.0-2.0) 02/28/18 18:00 Calcium 8.3 mg/dl (8.4-10.2) L 03/01/18 07:40 Phosphorus 3.1 mg/dl (2.5-4.6) 03/01/18 07:40 Magnesium 1.7 mg/dL (1.8-2.4) L 03/01/18 07:40 Total Bilirubin 1.0 mg/dl (0.2-1.0) 02/28/18 16:45 AST 25 U/L (10-42) 02/28/18 16:45 ALT 5 U/L (10-40) L 02/28/18 16:45 Alkaline Phosphatase 57 U/L (32-92) 02/28/18 16:45 Creatine Kinase 54 IU/L (26-192) 03/01/18 07:30 Troponin I 0.04 ng/ml (0.00-0.06) 03/01/18 07:30 Total Protein 6.7 g/dl (6.4-8.3) 02/28/18 16:45 Albumin 3.4 g/dl (3.5-5.0) L 02/28/18 16:45 Triglycerides 101 mg/dl (35-160) 03/01/18 07:40 Cholesterol 103 mg/dl 03/01/18 07:40 Total LDL Cholesterol 42 mg/dl 03/01/18 07:40 HDL Cholesterol 41 mg/dl (29-89) D 03/01/18 07:40 Active Medications Generic Name Dose Route Start Last Admin Trade Name Nata PRN Reason Stop Dose Admin Apixaban 2.5 mg 02/28/18 22:00 02/28/18 22:22 Eliquis - PO 2.5 mg BID DUSTY Administration Atorvastatin Calcium 10 mg 02/28/18 22:00 02/28/18 22:22 Lipitor - PO 10 mg HS DUSTY Administration Carbidopa/Levodopa 1 combo 02/28/18 22:00 02/28/18 22:22 Sinemet *Cr* 25/100 - PO 1 combo QID DUSTY Administration Glipizide 2.5 mg 03/01/18 07:00 03/01/18 06:25 Glucotrol Xl - PO 2.5 mg DAILY@0700 DUSTY Administration Ceftriaxone Sodium 1 mls @ 2 mls/hr 03/01/18 10:00 Ceftriaxone 1 Gm-D5w Bag IVPB DAILY [facility] Protocol Insulin Aspart 1 vial 03/01/18 07:00 Novolog Vial Sliding Scale - SQ TIDAC [facility] Protocol Metoprolol Tartrate 50 mg 03/01/18 10:00 Lopressor - PO DAILY DUSTY Pramipexole Dihydrochloride 0.25 mg 03/01/18 07:00 03/01/18 06:26 Mirapex - PO 0.25 mg AM DUSTY Administration Pramipexole Dihydrochloride 0.5 mg 02/28/18 22:00 02/28/18 22:22 Mirapex - PO 0.5 mg HS DUSTY Administration Sitagliptin Phosphate 50 mg 03/01/18 07:00 03/01/18 06:26 Januvia - PO 50 mg DAILY@0700 DUSTY Administration ASSESSMENT/PLAN: 1. UTI - continue rocephin until, urine culture is resulted - leukocytosis is trending downward - monitor wbc and fever curve 2. cardiology Elevated Troponin - trended downward, secondary to ischemic demand, no events noted on cardiac monitoring - cardiology, Dr Aguila consulted and following afib - rate controlled, continue lopressor and eliquis 3) endo DM - continue januvia and glipizide - elevated hgb a1c will require outpatient followup - continue fingersticks achs with regular insulin sliding scale 4) nephrolgoy . Acute on Chronic Kidney Disease - hx CKD, creatine 1.9 unknown baseline -strict monitoring, repeat bmp in am 5) FEN - Replete lytes prn - Low Na, Diabetic Diet 8. DVT ppx - SCDs - Continue Eliquis Code Status: Full Code Dispo: Tele Observation
[2018-03-01 09:09] LABS: BASO % 0.3 % (0-2.0); EOS % 0.4 % (0-4.5); HEMATOCRIT 30.3 % (32.4-45.2); HEMOGLOBIN 10.1 GM/dl (10.7-15.3); LYMPH % 7.7 % (8-40); MCH 31.7 pg (25.7-33.7); MCHC 33.2 g/dl (32.0-36.0); MEAN CELL VOLUME 95.4 fl (80-96); MEAN PLT VOLUME 7.9 fl (7.5-11.1); NEUT % 86.6 % (42.8-82.8); PLATELET COUNT 178 K/MM3 (134-434); RBC 3.17 M/mm3 (3.60-5.2); RDW 12.1 % (11.6-15.6); WHITE BLOOD COUNT 12.7 K/mm3 (4.0-10.8)
--- NOTE | 2018-03-01 09:16 | EKG ---
Test Reason : Blood Pressure : / mmHG Vent. Rate : 082 BPM Atrial Rate : 082 BPM P-R Int : 000 ms QRS Dur : 118 ms QT Int : 422 ms P-R-T Axes : 064 -66 -44 degrees QTc Int : 493 ms SINUS RHYTHM WITH MARKED SINUS ARRHYTHMIA WITH 1ST DEGREE A-V BLOCK INCOMPLETE RIGHT BUNDLE BRANCH BLOCK LEFT ANTERIOR FASCICULAR BLOCK T WAVE ABNORMALITY, CONSIDER INFERIOR ISCHEMIA T WAVE ABNORMALITY, CONSIDER ANTERIOR ISCHEMIA ABNORMAL ECG WHEN COMPARED WITH ECG OF 28-FEB-2018 17:11, COMPARED TO EKG NO SIGNIFICANT CHANGE IS FOUND Confirmed by SUGEY MARTINEZ MD ([id number]) on 03/01/2018 9:16:12 AM Referred By: DR DE LA CRUZ Confirmed By:SUGEY MARTINEZ MD
--- NOTE | 2018-03-01 09:17 | EKG ---
Test Reason : Blood Pressure : / mmHG Vent. Rate : 061 BPM Atrial Rate : 061 BPM P-R Int : 218 ms QRS Dur : 114 ms QT Int : 430 ms P-R-T Axes : 084 -64 -46 degrees QTc Int : 432 ms SINUS RHYTHM WITH 1ST DEGREE A-V BLOCK PULMONARY DISEASE PATTERN INCOMPLETE RIGHT BUNDLE BRANCH BLOCK LEFT ANTERIOR FASCICULAR BLOCK ABNORMAL ECG WHEN COMPARED WITH ECG OF 13-APR-2017 14:31, COMPARED TO EKG NO SIGNIFICANT CHANGE IS FOUND Confirmed by SUGEY MARTINEZ MD ([id number]) on 03/01/2018 9:16:42 AM Referred By: DR SLAUGHTER Confirmed By:SUGEY MARTINEZ MD
--- NOTE | 2018-03-01 09:19 | PN ---
Progress Note, Physician - Current Medication List Current Medications: Active Medications Apixaban (Eliquis -) 2.5 mg PO BID [facility] Last Admin: 02/28/18 22:22 Dose: 2.5 mg Atorvastatin Calcium (Lipitor -) 10 mg PO HS [facility] Last Admin: 02/28/18 22:22 Dose: 10 mg Carbidopa/Levodopa (Sinemet *Cr* 25/100 -) 1 combo PO QID [facility] Last Admin: 02/28/18 22:22 Dose: 1 combo Glipizide (Glucotrol Xl -) 2.5 mg PO DAILY@0700 [facility] Last Admin: 03/01/18 06:25 Dose: 2.5 mg Ceftriaxone Sodium (Ceftriaxone 1 Gm-D5w Bag) 1 mls @ 2 mls/hr IVPB DAILY [facility]; Protocol Insulin Aspart (Novolog Vial Sliding Scale -) 1 vial SQ TIDAC [facility]; Protocol Metoprolol Tartrate (Lopressor -) 50 mg PO DAILY [facility] Pramipexole Dihydrochloride (Mirapex -) 0.25 mg PO AM [facility] Last Admin: 03/01/18 06:26 Dose: 0.25 mg Pramipexole Dihydrochloride (Mirapex -) 0.5 mg PO HS [facility] Last Admin: 02/28/18 22:22 Dose: 0.5 mg Sitagliptin Phosphate (Januvia -) 50 mg PO DAILY@0700 [facility] Last Admin: 03/01/18 06:26 Dose: 50 mg - Objective Vital Signs: Vital Signs Temperature 97.4 F L 03/01/18 05:00 Pulse Rate 62 03/01/18 05:00 Respiratory Rate 18 03/01/18 01:59 Blood Pressure 115/48 03/01/18 05:00 O2 Sat by Pulse Oximetry (%) 99 03/01/18 01:59 Assessment/Plan speech disturbance on 03/30 shortly after coming home from [place]) and having ILR inserted; similar presentation in 12/2013 with no clear etiology- - when extensive w/u was unrevealing. no afib/flutter on tele here, just sinus with APCs. per dr whipple and erica the RN yest stated [employer] rep who checked the ILR told her everything was fine on it. review of the printout by me today shows list of many episodes of AFib reported lasting 2-20min since 03/31 (incl on 04/01 and 04/02 when pt in hospital). no EGMs provided. but tele--no arrythmias detected; ? if this is referring to frequent APCs? Will get MDT to come back to clarify ILR interrogation report and ? print EGMs for more refined analysis of listed AFib episodes. given previously with no etiol of transient neuro deficits per cv and neuro w/u 01/04 (and head ct and carotids this time again unremarkable), will likely need AC (if no strong contraindication) if true pafib detected.
--- NOTE | 2018-03-01 09:20 | CON.CARD ---
Consult Consult Specialty:: Cardiology Referred by:: Hospitalist Medicine Reason for Consultation:: Parxysmal Afib, elevated trops - History of Present Illness Chief Complaint: Post-prandial cough, UTI History of Present Illness: PCP: Dr. Perez HISTORY OF PRESENT ILLNESS: This is a 88 y/o woman with a PMHx of Dementia, Anemia, HTN, CKD, Paroxysmal Afib (on Eliquis), PD, DM, hyperlipidemia follows James Torres at [facility] who presented to the ED with her daughter for a non-productive cough, abdominal pain , lethargy, decreased PO intake. Patient's daughter reports that the patient reported to her having a cough overnight with abdominal pain. The daughter also reports that her mother's appetite has been decreased and she has had increased lethargy. The patient reports having burning with urination and spasms to her abdomen. The patient denies fever, chills, SOB, CP, palpitations, N/V/D, constipation, near or true syncope. ER course was notable for: (1) UTI- +3 leukocyte esterase, +1 ketones, > 100 WBCs (2) WBC 19.9 (3) Glucose 314 (4) Troponin I 0.09 (5) BUN 32, Cr 2.2 - History Source History Provided By: Patient Limitations to Obtaining History: No Limitations - Past Medical History DIRECTOR OF DONOR RELATIONS: Yes: TIA, Parkinson's Cardio/Vascular: Yes: AFIB, CAD, HTN, Hyperlipdemia Gastrointestinal: Yes: GERD Renal/: Yes: Renal Inusuff Musculoskeletal: Yes: Osteoarthritis Endocrine: Yes: Diabetes Mellitus - Past Surgical History Past Surgical History: Yes: Cataract Removal, Hernia Repair - Alcohol/Substance Use Hx Alcohol Use: No - Smoking History Smoking history: Never smoked Have you smoked in the past 12 months: No Home Medications - Allergies Allergies/Adverse Reactions: Allergies Allergy/AdvReac Type Severity Reaction Status Date / Time naproxen [From Naprosyn] AdvReac Intermediate Verified 02/28/18 15:38 - Home Medications Home Medications: Ambulatory Orders Metoprolol Tartrate [Lopressor -] 50 mg PO DAILY #0 tablet 01/04/14 Carbidopa/Levodopa [Carbidopa-Levo ER 25-100 Tab] 1 each PO QID 03/30/14 Ferrous Sulfate [Feosol] 325 mg PO DAILY 08/07/14 Apixaban [Eliquis] 2.5 mg PO BID 04/16/14 Simvastatin [Zocor -] 20 mg PO HS 04/16/14 Oliver/D3/Mag11/Zinc/Refinisher/Jonny/Bor [Caltrate 600+D Plus Tablet] 2 each PO DAILY Glipizide [Glipizide Xl] 2.5 mg PO DAILY 09/10/14 Magnesium Chloride [Slow-Mag -] 71.5 mg PO DAILY 09/10/14 Sitagliptin Phosphate [Januvia] 50 mg PO DAILY 04/13/17 B2/Vits A,C,E/Lut/Zeaxanth/Min [Icaps Tablet] 2 each PO DAILY 02/28/18 Omeprazole 20 mg PO DAILY 02/28/18 Pramipexole Dihydrochloride [Mirapex -] 0.25 mg PO AM 02/28/18 Pramipexole Dihydrochloride [Mirapex -] 0.5 mg PO HS 02/28/18 Simvastatin 20 mg PO DAILY 02/28/18 Review of Systems - Review of Systems Respiratory: reports: Cough Genitourinary: reports: Dysuria Vital Signs: Vital Signs Temperature 97.4 F L 03/01/18 05:00 Pulse Rate 62 03/01/18 05:00 Respiratory Rate 18 03/01/18 01:59 Blood Pressure 115/48 03/01/18 05:00 O2 Sat by Pulse Oximetry (%) 99 03/01/18 01:59 Constitutional: Yes: No Distress, Calm, Thin Neck: Yes: Supple Respiratory: Yes: Regular, Diminished Gastrointestinal: Yes: Normal Bowel Sounds, Soft Cardiovascular: Yes: Regular Rate and Rhythm JVD: No Carotid Bruit: No Heart Sounds: Yes: S1, S2 Murmur: Yes: Systolic Murmur, Grade 1 Edema: No - Other Data Labs, Other Data: Troponin, BNP 02/28/18 02/28/18 03/01/18 16:45 19:55 01:40 Troponin I 0.09 H 0.07 H 0.08 H Troponin, BNP 02/28/18 02/28/18 03/01/18 16:45 19:55 01:40 Troponin I 0.09 H 0.07 H 0.08 H Problem List - Problems (1) Leukocytosis Code(s): D72.829 - ELEVATED WHITE BLOOD CELL COUNT, UNSPECIFIED Qualifiers: Leukocytosis type: unspecified Qualified Code(s): D72.829 - Elevated white blood cell count, unspecified (2) Demand ischemia Code(s): I24.8 - OTHER FORMS OF ACUTE ISCHEMIC HEART DISEASE (3) Diastolic dysfunction without heart failure Code(s): I51.89 - OTHER ILL-DEFINED HEART DISEASES (4) Acute on chronic renal failure Code(s): N17.9 - ACUTE KIDNEY FAILURE, UNSPECIFIED; N18.9 - CHRONIC KIDNEY DISEASE, UNSPECIFIED Qualifiers: Acute renal failure type: unspecified Chronic kidney disease stage: unspecified stage Qualified Code(s): N17.9 - Acute kidney failure, unspecified ; N18.9 - Chronic kidney disease, unspecified (5) Elevated troponin Code(s): R74.8 - ABNORMAL LEVELS OF OTHER SERUM ENZYMES (6) Urinary tract infection Code(s): N39.0 - URINARY TRACT INFECTION, SITE NOT SPECIFIED Qualifiers: Urinary tract infection type: site unspecified (7) Diabetes mellitus Code(s): E11.9 - TYPE 2 DIABETES MELLITUS WITHOUT COMPLICATIONS Qualifiers: Diabetes mellitus type: type 2 (8) HTN (hypertension) Code(s): I10 - ESSENTIAL (PRIMARY) HYPERTENSION Qualifiers: Hypertension type: essential hypertension Qualified Code(s): I10 - Essential (primary) hypertension (9) Hyperlipidemia Code(s): E78.5 - HYPERLIPIDEMIA, UNSPECIFIED Qualifiers: Hyperlipidemia type: pure hypercholesterolemia Qualified Code(s): E78.00 - Pure hypercholesterolemia, unspecified; E78.0 - Pure hypercholesterolemia Assessment/Plan 01/01/2014 Echo: Normal LV sie and fxn, abnl LV compliance, mod JIHAN, mild MR, TR , mod ao dilatation 1. UTI with leukocytosis 2. PAF->SR on NOAC 3. Hyperlipidemia 4. Type 2 DM 5. Parkinson's disease r/o silent aspiration 6. LV diastolic dysfunction with demand ischemia 7. Acute on CKD with hyponatremia P:1. Trops have peaked 2. Continue Metoprolol 50 qd, Eliquis 2.5 bid, Lipitor 10 qhs 3. Complete empiric abx course per C&S 4. Judicious hydration with monitor renal recovery, S&S eval pending 5. Thank you for consultative opportunity
[2018-03-01 09:24] LABS: ANION GAP 9 (8-16); BLOOD UREA NITROGEN 38 mg/dl (7-18); CALCIUM 8.3 mg/dl (8.4-10.2); CHLORIDE 105 mmol/L (98-107); CO2 21 mmol/L (22-28); CREATININE 1.9 mg/dl (0.6-1.3); GLUCOSE,RANDOM 122 mg/dl (74-106); MAGNESIUM 1.7 mg/dL (1.8-2.4); PHOSPHOROUS 3.1 mg/dl (2.5-4.6); POTASSIUM 4.3 mmol/L (3.5-5.1); SODIUM 135 mmol/L (136-145)
[2018-03-01] MEDS: APIXABAN 2.5 MG TABLET PO SCH (09:34)
[2018-03-01] MEDS ORDERED: METOPROLOL TARTRATE 50 MG TABLET (FP) PO SCH (10:00)
[2018-03-01] MEDS ORDERED: CEFTRIAXONE 1 G/50 ML PREMIX 1 ML IVPB SCH (10:00)
[2018-03-01] MEDS ORDERED: MAGNESIUM SULFATE 2 GM in SODIUM CHLORIDE 100 ML IVPB ONE (10:04)
[2018-03-01 10:18] LABS: CHOLESTEROL 103 mg/dl; HDL CHOLESTEROL 41 mg/dl (29-89); LDL CHOLESTEROL (ONLY DFH) 42 mg/dl; TRIGLYCERIDES 101 mg/dl (35-160)
[2018-03-01] MEDS ORDERED: MAGNESIUM SULFATE IN WATER 2 GM/50 ML IVPB IVPB ONE (10:30)
[2018-03-01] MEDS: INSULIN SLIDING SCALE (NOVOLOG) 1 VIAL SQ SCH ×2 (10:45→15:12)
--- NOTE | 2018-03-01 14:03 | CONSULT ---
Admitting History and Physical - Primary Care Physician PCP: Cassandra Kate - Admission History of Present Illness: HISTORY OF PRESENT ILLNESS: This is a 88 y/o woman with a PMHx of Dementia, Anemia, HTN, CKD, Afib (on Eliquis), Thyroid (goiter). Who presents to the ED with her daughter for a non- productive cough, abdominal pain, lethargy, decreased PO intake. Patient's daughter reports that the patient reported to her having a cough overnight with abdominal pain. The daughter also reports that her mother's appetite has been decreased and she has had increased lethargy. The patient reports having burning with urination and spasms to her abdomen. The patient denies fever, chills, SOB, CP, palpitations, N/V/D, constipation. ER course was notable for: (1) UTI- +3 leukocyte esterase, +1 ketones, > 100 WBCs (2) WBC 19.9 (3) Glucose 314 (4) Troponin I 0.09 (5) BUN 32, Cr 2.2 Family reports that she coughs "everyday after meals." She lives with her nephew. CT chest large HH. Selected Entries 02/28/18 03/01/18 03/01/18 22:12 01:59 05:00 Breakfast Chief Complaint cough Lunch Temperature 97.9 F 97.4 F L 03/01/18 03/01/18 03/01/18 08:35 09:32 14:08 Breakfast 75% Chief Complaint Lunch Temperature 97.8 F 97.6 F 03/01/18 14:12 Breakfast Chief Complaint Lunch 75% Temperature Laboratory Tests 02/28/18 03/01/18 16:45 07:40 WBC 19.9 H 12.7 H Chart reviewed. Pt was down in [place]. Family interviewed. When family returned, they requested I not see the pt as she was considered Observation, and they did not want to incur expense of additional assessments. MBS was rec as out pt. 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, Parkinson's Cardiovascular: Yes: AFIB, CAD, HTN, Hyperlipdemia Gastrointestinal: Yes: GERD Renal/: Yes: Renal Inusuff Heme/Onc: Yes: Anemia, B12 Deficiency Musculoskeletal: Yes: Osteoarthritis Endocrine: Yes: Diabetes Mellitus - Past Surgical History Past Surgical History: Yes: Cataract Removal, Hernia Repair - Smoking History Smoking history: Never smoked Have you smoked in the past 12 months: No - Alcohol/Substance Use Hx Alcohol Use: No History - Admission Reason For Visit: URINARY TRACT INFECTION, SITE NOT SPECIFIED,ACUTE - Hearing Hearing: Normal Hearing Aide: No With Patient: No Speech Evaluation - Communication Primary Language: LIBERIAN - Swallow Evaluation/Bedside Assessment Current Nutritional Intake: Regular, Thin Liquids
[2018-03-01 14:09] VITALS: BP 114/74; PULSE 59; TEMP 97.6
[2018-03-01] MEDS ORDERED: INSULIN (NOVOLOG) ASPART 100 UNITS/ML 10ML VIAL ONE (15:22)
--- NOTE | 2018-03-02 12:07 | EKG ---
Test Reason : Blood Pressure : / mmHG Vent. Rate : 070 BPM Atrial Rate : 070 BPM P-R Int : 250 ms QRS Dur : 120 ms QT Int : 442 ms P-R-T Axes : 033 -58 -45 degrees QTc Int : 477 ms SINUS RHYTHM WITH 1ST DEGREE A-V BLOCK WITH PREMATURE SUPRAVENTRICULAR COMPLEXES RIGHT BUNDLE BRANCH BLOCK LEFT ANTERIOR FASCICULAR BLOCK BIFASCICULAR BLOCK T WAVE ABNORMALITY, CONSIDER INFEROLATERAL ISCHEMIA ABNORMAL ECG Confirmed by MD GT, KATRIN ([id number]) on 03/02/2018 12:07:34 PM Referred By: TOM SIDHU Confirmed By:KATRIN DEL REAL MD
== END 2018-03-01 17:13 | disposition left against medical advice (07) ==
LOC: FER 15:35 → UNDOADMOB 17:39 → UNDOADMIN 17:39 → FM/S 17:39
PROVIDERS: ADMIT Internal Medicine; ATTEND Nurse Practitioner Family
PROC: 3E03329 Introduction of Other Anti-infective into Peripheral Vein, Percutaneous Approach (ICD-10-PCS; principal; 2018-02-28)
PROC: 3E033GC Introduction of Other Therapeutic Substance into Peripheral Vein, Percutaneous Approach (ICD-10-PCS; 2018-02-28)
PROC: 3E013VG Introduction of Insulin into Subcutaneous Tissue, Percutaneous Approach (ICD-10-PCS; 2018-02-28)
PROC: 3E033VG Introduction of Insulin into Peripheral Vein, Percutaneous Approach (ICD-10-PCS; 2018-02-28)
PROC: 3E0337Z Introduction of Electrolytic and Water Balance Substance into Peripheral Vein, Percutaneous Approach (ICD-10-PCS; 2018-02-28)
DX: E11.22 Type 2 diabetes mellitus with diabetic chronic kidney disease (principal); E11.65 Type 2 diabetes mellitus with hyperglycemia; I12.9 Hypertensive chronic kidney disease with stage 1 through stage 4 chronic kidney disease, or unspecified chronic kidney disease; N18.9 Chronic kidney disease, unspecified; N17.9 Acute kidney failure, unspecified; Z79.84 Long term (current) use of oral hypoglycemic drugs; N39.0 Urinary tract infection, site not specified; R77.8 Other specified abnormalities of plasma proteins; E86.0 Dehydration; D64.9 Anemia, unspecified; G20 Parkinson's disease; F02.80 Dementia in other diseases classified elsewhere, unspecified severity, without behavioral disturbance, psychotic disturbance, mood disturbance, and anxiety; I48.91 Unspecified atrial fibrillation; Z86.73 Personal history of transient ischemic attack (TIA), and cerebral infarction without residual deficits; E04.9 Nontoxic goiter, unspecified; Z79.01 Long term (current) use of anticoagulants; D72.829 Elevated white blood cell count, unspecified; I24.8 Other forms of acute ischemic heart disease; I51.89 Other ill-defined heart diseases; E78.5 Hyperlipidemia, unspecified
CPT/HCPCS: 36415; 71046-TC-FY; 76775-TC; 76856-TC; 80048; 80053; 80061; 81003; 81015; 82550; 82962; 83036; 83605; 83735; 84100; 84484; 85025; 87040; 87086; 87186; 93005; 97116-GP; 97161-GP; 99285-25; G0378; J7030

== ENCOUNTER 2018-08-16 13:47 | Observation (INO) | payer BC ==
--- NOTE | 2018-08-16 15:39 | PDOC ---
History of Present Illness - General Chief Complaint: Psychiatric Stated Complaint: SENT BY PCP FOR CT Time Seen by Provider: 08/16/18 14:49 History Source: Patient, Family Exam Limitations: No Limitations - History of Present Illness Initial Comments: 08/16/18 15:39 88 year old woman with a history of dementia, parkinson's, HTN, CKD, Afib (on eliquis), thyroid goiter, prior history of hypernatremia who presents with visual and auditory hallucinations that started 2 weeks ago after UTI was found by PCP Dr. Yeh and the patient was started on Bactrim. The patient denies suicidal and homicidal ideation. The patient has had 1 week of bilateral foot swelling, 2 days of diarrhea and decreased eating and drinking. The patient has a chronic cough that was reported to be 2/2 GERD per PCP. The patient and daughter deny fever, chest pain, shortness of breath, headaches, abdominal pain , N/V/C. Patient walks with a walker when outside of the home. The patient has no other complaints at bedside. PCP: Rao Past History - Past Medical History Allergies/Adverse Reactions: Allergies Allergy/AdvReac Type Severity Reaction Status Date / Time naproxen [From Naprosyn] AdvReac Intermediate Verified 02/28/18 15:38 Home Medications: Ambulatory Orders Ferrous Sulfate [Feosol] 325 mg PO DAILY 03/30/14 Simvastatin [Zocor -] 20 mg PO HS 04/16/14 Oliver/D3/Mag11/Zinc/Hvac R Tech/Jonny/Bor [Caltrate 600+D Plus Tablet] 2 each PO DAILY Glipizide [Glipizide Xl] 5 mg PO BID 09/10/14 Magnesium Chloride [Slow-Mag -] 71.5 mg PO DAILY 09/10/14 Sitagliptin Phosphate [Januvia] 50 mg PO DAILY 04/13/17 B2/Vits A,C,E/Lut/Zeaxanth/Min [Icaps Tablet] 2 each PO DAILY 02/28/18 Omeprazole 20 mg PO DAILY 02/28/18 Pramipexole Dihydrochloride [Mirapex -] 0.25 mg PO AM 02/28/18 Pramipexole Dihydrochloride [Mirapex -] 0.5 mg PO HS 02/28/18 Benzonatate 200 mg PO TID 08/16/18 Carbidopa/Levodopa [Carbidopa-Levodopa 25-250 Tab] 1 each PO QID 08/16/18 Fluticasone Prop 0.05% Nasal [Flonase -] 1 - 2 spray NS BID 08/16/18 Mirabegron [Myrbetriq] 50 mg PO HS 08/16/18 Apixaban [Eliquis -] 2.5 mg PO BID #60 tablet 08/18/18 Cephalexin Monohydrate [Keflex -] 500 mg PO BID #14 capsule 08/18/18 Metoprolol Succinate [Toprol XL -] 25 mg PO DAILY #30 tab.sr.24h 08/18/18 Anemia: Yes Asthma: No Cardiac Disorders: Yes (atrial fibrillation) CVA: Yes (TIA) COPD: No Diabetes: Yes (NIDDM) GI Disorders: (hernia) HTN: Yes Hypercholesterolemia: Yes Thyroid Disease: Yes (goiter) - Surgical History Abdominal Surgery: Yes (HERNIA) Orthopedic Surgery: (arthritis finger surgery) - Immunization History Immunization Up to Date: No - Suicide/Smoking/Psychosocial Hx Smoking History: Never smoked Have you smoked in the past 12 months: No Information on smoking cessation initiated: No Hx Alcohol Use: No Drug/Substance Use Hx: No Hx Substance Use Treatment: No Review of Systems - Review of Systems Able to Perform ROS?: Yes Is the patient limited Czech proficient: No Constitutional: No: Chills, Diaphoresis Respiratory: No: Cough, Orthopnea, Shortness of Breath Cardiac (ROS): No: Chest Pain, Palpitations, Syncope ABD/GI: No: Constipated, Diarrhea, Nausea, Vomiting : No: Burning, Dysuria Musculoskeletal: No: Back Pain Neurological: No: Headache, Numbness, Tingling *Physical Exam - Vital Signs Last Vital Signs Temp Pulse Resp BP Pulse Ox 97.8 F 71 16 130/66 97 08/16/18 14:00 08/16/18 14:00 08/16/18 14:00 08/16/18 14:00 08/16/18 14:00 - Physical Exam Comments: 08/16/18 16:00 GENERAL: Awake, alert, and fully oriented, in no acute distress HEAD: No signs of trauma, normocephalic, atraumatic EYES: R eye, coloboma, PERRLA, EOMI, sclera anicteric, conjunctiva clear ENT: loss of upper dentition, oropharynx clear without exudates. Moist mucosa NECK: Normal ROM, supple LUNGS: No distress, speaks full sentences, clear to auscultation bilaterally HEART: Regular rate and rhythm, normal S1 and S2, no murmurs, rubs or gallops, peripheral pulses normal and equal bilaterally. ABDOMEN: Soft, nontender, normoactive bowel sounds. No guarding, no rebound. No masses EXTREMITIES : Normal inspection, Normal range of motion, no edema. 2+ pitting edema of feet bilaterally not above the ankles NEUROLOGICAL: Cranial nerves II through XII grossly intact. Normal speech, gait slow but steady - baseline, no focal sensorimotor deficits SKIN: Warm, Dry, normal turgor, no rashes or lesions noted Moderate Sedation - Procedure Monitoring Vital Signs: Procedure Monitoring Vital Signs Temperature 97.8 F 08/16/18 14:00 Pulse Rate 71 08/16/18 14:00 Respiratory Rate 16 08/16/18 14:00 Blood Pressure 130/66 08/16/18 14:00 O2 Sat by Pulse Oximetry (%) 97 08/16/18 14:00 ED Treatment Course - LABORATORY CBC & Chemistry Diagram: 08/17/18 06:00 08/17/18 06:00 - RADIOLOGY Radiology Studies Ordered: Category Date Time Status HEAD CT WITHOUT CONTRAST [CT] Stat CT Scan 08/16/18 15:26 Ordered CHEST X-RAY PORTABLE* [RAD] Stat Radiology 08/16/18 15:26 Ordered Medical Decision Making - Medical Decision Making 08/16/18 15:59 88 year old woman with a history of dementia, parkinson's, HTN, CKD, Afib (on eliquis), thyroid goiter, prior history of hypernatremia who presents with visual and auditory hallucinations that started 2 weeks ago after UTI was found by PCP Dr. Yeh and the patient was started on Bactrim. The patient denies suicidal and homicidal ideation. The patient has had 1 week of bilateral foot swelling, 2 days of diarrhea and decreased eating and drinking. The patient has a chronic cough that was reported to be 2/2 GERD per PCP. The patient and daughter deny fever, chest pain, shortness of breath, headaches, abdominal pain , N/V/C. The patient has no other complaints at bedside. ED Course: Evaluate patient for possible infectious causes including UTI vs pna Consider intracranial bleed or brain mass Possible component of hypernatremia as patient has a history and now with swelling of the feet. Also consider that symptoms are 2/2 dementia and parkinsons Patient with thyroid goiter history will evaluate TSH level consider polypharmacy cbc, cmp, trop, ekg, bnp, ua, ucx, tsh, head ct 08/16/18 17:13 UA: +167 wbc, 3+ leuk esterase. Will admit for IV administration of antibiotics. Rao contacted. 08/16/18 18:08 Patient admitted to medicine. *DC/Admit/Observation/Transfer Diagnosis at time of Disposition: Urinary tract infection, Hallucinations - Discharge Dispostion Disposition: HOME Condition at time of disposition: Stable Decision to Admit order: Yes - Prescriptions - Referrals - Patient Instructions - Post Discharge Activity
[2018-08-16 16:04] LABS: BASO % 0.6 % (0-2.0); EOS % 1.4 % (0-4.5); HEMATOCRIT 29.7 % (32.4-45.2); HEMOGLOBIN 10.3 GM/dL (10.7-15.3); LYMPH % 15.6 % (8-40); MCH 33.1 pg (25.7-33.7); MCHC 34.8 g/dl (32.0-36.0); MEAN CELL VOLUME 95.2 fl (80-96); MEAN PLT VOLUME 7.5 fl (7.5-11.1); MONO % 11.4 % (3.8-10.2); PLATELET COUNT 196 K/MM3 (134-434); RBC 3.12 M/mm3 (3.60-5.2); RDW 12.8 % (11.6-15.6); WHITE BLOOD COUNT 4.7 K/mm3 (4.0-10.0)
[2018-08-16 16:16] LABS: URINE APPEARANCE CLOUDY; URINE BILIRUBIN NEGATIVE (<2.0 mg/dL); URINE COLOR YELLOW; URINE GLUCOSE (UA) NEGATIVE (NEGATIVE); URINE KETONE TRACE (NEGATIVE); URINE LEUK ESTERASE 3+ (NEGATIVE); URINE NITRITE POSITIVE (NEGATIVE); URINE PROTEIN NEGATIVE (NEGATIVE); URINE UROBILINOGEN NEGATIVE mg/dL (0.2-1.0)
[2018-08-16 16:25] LABS: INR 1.26 (0.83-1.09); PROTHROMBIN TIME (PATIENT) 14.9 SEC (9.7-13.0)
--- NOTE | 2018-08-16 16:25 | PDOC ---
Attending Attestation - Medical Decision Making 08/16/18 16:28 Documentation prepared by Slade Marshall, acting as medical technicians for Michi Fritz MD. <Slade Marshall - Last Filed: 08/16/18 16:28> - Resident Resident Name: Estefani Moody - ED Attending Attestation I have performed the following: I have examined & evaluated the patient, The case was reviewed & discussed with the resident, I agree w/resident's findings & plan, Exceptions are as noted - HPI HPI: 08/16/18 16:20 The patient is a 88 year old female, with a significant PMH of parkinson's dementia, anemia, hypertension, hyperlipidemia, chronic kidney disease, Afib ( on eliquis), recent UTI on 07/29/18 who presents to the emergency department with visual and auditory hallucinations. Per daughter, pt was diagnosed with a UTI on 07/29 and started on Bactrim. Pt started having hallucinations on 07/31, seeing her cat in the house. Pt's PMD subsequently stopped the bactrim, believing this may be the cause of the hallucinations. Daughter states that the pt only hallucinates at night time. During the day, she is at her baseline mentation. Pt has not been on any other antibiotics but has continued to have nightly hallucinations that are progressively worsening. Daughter states that the pt was terrified because she thought people were coming after her. Currently pt is back to baseline, denying any complaints. No dysuria. No fevers. The patient denies chest pain, shortness of breath, headache and dizziness. Denies fever, chills, nausea, vomit and constipation. Denies dysuria, frequency, urgency and hematuria. Allergies: Naproxen - Physicial Exam PE: 08/16/18 16:23 GENERAL: Awake, alert, NAD HEAD: No signs of trauma EYES: PERRLA, EOMI, sclera anicteric, conjunctiva clear ENT: Auricles normal inspection, hearing grossly normal, nares patent, oropharynx clear without exudates. Moist mucosa NECK: Nontender, no stepoffs, Normal ROM, supple, no lymphadenopathy, JVD, or masses LUNGS: Breath sounds equal, clear to auscultation bilaterally. No wheezes, and no crackles HEART: Regular rate and rhythm, normal S1 and S2, no murmurs, rubs or gallops ABDOMEN: Soft, nontender, normoactive bowel sounds. No guarding, no rebound. No masses EXTREMITIES: Normal range of motion, no edema. No clubbing or cyanosis. No cords, erythema, or tenderness NEUROLOGICAL: Cranial nerves II through XII intact. 5/5 strength and sensation in all extremities, Normal speech, normal gait, normal cerebellar function SKIN: Warm, Dry, normal turgor, no rashes or lesions noted. - Medical Decision Making 08/16/18 16:23 88 F with nightly hallucinations x 2 weeks. Possible delirium 2/2 infectious process. Suspect UTI. Pt currently at baseline with no neuro deficits, making intracranial process less likely. Will evaluate for other metabolic derangement. Also consider progression of pt's parkinson's - Labs - CXR, UA - CT head UA consistent with UTI Will start ceftriaxone CT head negative Pt admitted <Michi Fritz - Last Filed: 08/17/18 18:17>
[2018-08-16 16:31] LABS: ALBUMIN 3.5 g/dl (3.4-5.0); ALK PHOS 74 U/L (45-117); ANION GAP 7 MMOL/L (8-16); BILIRUBIN,TOTAL 0.6 mg/dL (0.2-1); BLOOD UREA NITROGEN 34 mg/dL (7-18); CALCIUM 8.5 mg/dL (8.5-10.1); CHLORIDE 110 mmol/L (98-107); CO2 20 mmol/L (21-32); CREATININE 1.8 mg/dL (0.55-1.3); GLUCOSE,RANDOM 156 mg/dL (74-106); POTASSIUM 4.5 mmol/L (3.5-5.1); SGOT/AST 19 U/L (15-37); SGPT/ALT 9 U/L (13-61); SODIUM 136 mmol/L (136-145); TOT PROT 6.6 g/dl (6.4-8.2)
[2018-08-16 16:32] LABS: N-TERMINAL BNP 1558.2 pg/ml (5-450)
[2018-08-16 16:33] LABS: EPI CELLS RARE /HPF (FEW); URINE BACTERIA RARE /hpf (NONE SEEN); URINE HYALINE CAST 4 /lpf; URINE MUCUS RARE
[2018-08-16] MEDS ORDERED: diazePAM 5 MG TABLET PO ONE (17:04)
[2018-08-16] MEDS ORDERED: KETOROLAC TROMETHAMINE 10 MG TABLET PO ONE (17:05)
[2018-08-16] MEDS ORDERED: CEFTRIAXONE 1 GM in DEXTROSE 5%-WATER - 100 ML IVPB SCH (17:15)
[2018-08-16] MEDS ORDERED: CEFTRIAXONE 1 GM/50 ML BAG ONE (17:18)
--- NOTE | 2018-08-16 19:00 | HP ---
CHIEF COMPLAINT: hallucinations PCP: Rao HISTORY OF PRESENT ILLNESS: 88 year old female, with a significant PMH of parkinson's dementia, anemia, hypertension, hyperlipidemia, chronic kidney disease, Afib (on eliquis), treated with for suspected UTI with Bactrim starting with 07/29, started to have visual and auditory hallucination starting 2 days later. Patient described men coming to kidnap her and she described that she could hear to them talking. She was brought to hospital with her daughter. She otherwise denied other symptoms. ER course was notable for: (1) ceftriaxone (2) head CT (3) CXR Recent Travel: no PAST MEDICAL HISTORY: parkinson's dementia, anemia, hypertension, hyperlipidemia, chronic kidney disease, Afib (on eliquis) PAST SURGICAL HISTORY: none Social History: Smoking: no Alcohol: no Drugs: no Family History: none Allergies naproxen [From Naprosyn] Adverse Reaction (Intermediate, Verified 02/28/18 15:38 ) HOME MEDICATIONS: Home Medications Medication Instructions Recorded Ferrous Sulfate [Feosol] 325 mg PO DAILY 03/30/14 Apixaban [Eliquis] 5 mg PO BID 04/16/14 Simvastatin [Zocor -] 20 mg PO HS 04/16/14 Oliver/D3/Mag11/Zinc/Rap Artist/Jonny/Bor 2 each PO DAILY 09/10/14 [Caltrate 600+D Plus Tablet] Glipizide [Glipizide Xl] 5 mg PO BID 09/10/14 Magnesium Chloride [Slow-Mag -] 71.5 mg PO DAILY 09/10/14 Sitagliptin Phosphate [Januvia] 50 mg PO DAILY 04/13/17 B2/Vits A,C,E/Lut/Zeaxanth/Min 2 each PO DAILY 02/28/18 [Icaps Tablet] Omeprazole 20 mg PO DAILY 02/28/18 Pramipexole Dihydrochloride 0.25 mg PO AM 02/28/18 [Mirapex -] Pramipexole Dihydrochloride 0.5 mg PO HS 02/28/18 [Mirapex -] Benzonatate 200 mg PO TID 08/16/18 Carbidopa/Levodopa 1 each PO QID 08/16/18 [Carbidopa-Levodopa 25-250 Tab] Fluticasone Prop 0.05% Nasal 1 - 2 spray NS BID 08/16/18 [Flonase -] Metoprolol Tartrate [Lopressor -] 100 mg PO DAILY 08/16/18 Mirabegron [Myrbetriq] 50 mg PO HS 08/16/18 REVIEW OF SYSTEMS CONSTITUTIONAL: Absent: fever, chills, diaphoresis, generalized weakness, malaise, loss of appetite, weight change HEENT: Absent: rhinorrhea, nasal congestion, throat pain, throat swelling, difficulty swallowing, mouth swelling, ear pain, eye pain, visual changes CARDIOVASCULAR: Absent: chest pain, syncope, palpitations, irregular heart rate, lightheadedness , peripheral edema RESPIRATORY: Absent: cough, shortness of breath, dyspnea with exertion, orthopnea, wheezing, stridor, hemoptysis GASTROINTESTINAL: Absent: abdominal pain, abdominal distension, nausea, vomiting, diarrhea, constipation, melena, hematochezia GENITOURINARY: Absent: dysuria, frequency, urgency, hesitancy, hematuria, flank pain, genital pain MUSCULOSKELETAL: Absent: myalgia, arthralgia, joint swelling, back pain, neck pain SKIN: Absent: rash, itching, pallor HEMATOLOGIC/IMMUNOLOGIC: Absent: easy bleeding, easy bruising, lymphadenopathy, frequent infections ENDOCRINE: Absent: unexplained weight gain, unexplained weight loss, heat intolerance, cold intolerance NEUROLOGIC: Absent: headache, focal weakness or paresthesias, dizziness, unsteady gait, seizure, mental status changes, bladder or bowel incontinence PSYCHIATRIC: Absent: anxiety, depression, suicidal or homicidal ideation, + hallucinations. PHYSICAL EXAMINATION Vital Signs - 24 hr 08/16/18 08/16/18 08/16/18 14:00 15:47 18:09 Temperature 97.8 F 98.4 F Pulse Rate 71 Pulse Rate [ 64 Radial] Respiratory 16 20 Rate Blood Pressure 130/66 Blood Pressure 140/66 [Left Arm] O2 Sat by Pulse 97 97 99 Oximetry (%) GENERAL: Awake, alert, and fully oriented, in no acute distress. HEAD: Normal with no signs of trauma. EYES: Pupils equal, round and reactive to light, extraocular movements intact, sclera anicteric, conjunctiva clear. No lid lag. EARS, NOSE, THROAT: Ears normal, nares patent, oropharynx clear without exudates. Moist mucous membranes. NECK: Normal range of motion, supple without lymphadenopathy, JVD, or masses. LUNGS: Breath sounds equal, clear to auscultation bilaterally. No wheezes, and no crackles. No accessory muscle use. HEART: Regular rate and rhythm, normal S1 and S2 without murmur, rub or gallop. ABDOMEN: Soft, nontender, not distended, normoactive bowel sounds, no guarding, no rebound, no masses. MUSCULOSKELETAL: Normal range of motion at all joints. No bony deformities or tenderness. No CVA tenderness. UPPER EXTREMITIES: 2+ pulses, warm, well-perfused. No cyanosis. No clubbing. No peripheral edema. LOWER EXTREMITIES: 2+ pulses, warm, well-perfused. No calf tenderness. No peripheral edema. NEUROLOGICAL: Cranial nerves II-XII intact. Normal speech PSYCHIATRIC: +visual and auditory hallucinations SKIN: Warm, dry, normal turgor, no rashes or lesions noted, normal capillary refill. Laboratory Results - last 24 hr 08/16/18 08/16/18 08/16/18 15:42 15:50 15:50 WBC 4.7 RBC 3.12 L Hgb 10.3 L Hct 29.7 L D MCV 95.2 MCH 33.1 MCHC 34.8 RDW 12.8 Plt Count 196 MPV 7.5 D Absolute Neuts (auto) 3.3 Neutrophils % 71.0 Lymphocytes % 15.6 Monocytes % 11.4 H Eosinophils % 1.4 Basophils % 0.6 Nucleated RBC % 0 PT with INR INR PTT (Actin FS) Sodium 136 Potassium 4.5 Chloride 110 H Carbon Dioxide 20 L Anion Gap 7 L BUN 34 H Creatinine 1.8 H Creat Clearance w eGFR 26.62 Random Glucose 156 H Calcium 8.5 Total Bilirubin 0.6 AST 19 ALT 9 L Alkaline Phosphatase 74 Troponin I B-Natriuretic Peptide Total Protein 6.6 Albumin 3.5 TSH Urine Color Yellow Urine Appearance Cloudy Urine pH 5.0 Ur Specific [place] 1.012 Urine Protein Negative Urine Glucose (UA) Negative Urine Ketones Trace H Urine Blood Negative Urine Nitrite Positive Urine Bilirubin Negative Urine Urobilinogen Negative Ur Leukocyte Esterase 3+ H Urine WBC (Auto) 167 Urine RBC (Auto) 3 Ur Epithelial Cells Rare Urine Bacteria Rare Hyaline Casts 4 Urine Mucus Rare 08/16/18 08/16/18 08/16/18 15:50 15:50 15:50 WBC RBC Hgb Hct MCV MCH MCHC RDW Plt Count MPV Absolute Neuts (auto) Neutrophils % Lymphocytes % Monocytes % Eosinophils % Basophils % Nucleated RBC % PT with INR 14.90 H INR 1.26 H PTT (Actin FS) 28.6 Sodium Potassium Chloride Carbon Dioxide Anion Gap BUN Creatinine Creat Clearance w eGFR Random Glucose Calcium Total Bilirubin AST ALT Alkaline Phosphatase Troponin I B-Natriuretic Peptide Total Protein Albumin TSH 1.60 Urine Color Urine Appearance Urine pH Ur Specific [place] Urine Protein Urine Glucose (UA) Urine Ketones Urine Blood Urine Nitrite Urine Bilirubin Urine Urobilinogen Ur Leukocyte Esterase Urine WBC (Auto) Urine RBC (Auto) Ur Epithelial Cells Urine Bacteria Hyaline Casts Urine Mucus 08/16/18 15:50 WBC RBC Hgb Hct MCV MCH MCHC RDW Plt Count MPV Absolute Neuts (auto) Neutrophils % Lymphocytes % Monocytes % Eosinophils % Basophils % Nucleated RBC % PT with INR INR PTT (Actin FS) Sodium Potassium Chloride Carbon Dioxide Anion Gap BUN Creatinine Creat Clearance w eGFR Random Glucose Calcium Total Bilirubin AST ALT Alkaline Phosphatase Troponin I < 0.02 B-Natriuretic Peptide 1558.2 H Total Protein Albumin TSH Urine Color Urine Appearance Urine pH Ur Specific [place] Urine Protein Urine Glucose (UA) Urine Ketones Urine Blood Urine Nitrite Urine Bilirubin Urine Urobilinogen Ur Leukocyte Esterase Urine WBC (Auto) Urine RBC (Auto) Ur Epithelial Cells Urine Bacteria Hyaline Casts Urine Mucus ASSESSMENT/PLAN: #88yo woman with altered mental status with auditory and visual hallucinations. Uncertain cause but possibly from Lewy body dementia,possible underlying UTI, or uremia. Altered mentation may also be caused by polypharmacy- medication induced psychosis from bactrim. TSH was wnl. Head CT negative for any acute changes. -observation -fall precautions -correct any electrolytes disturbances -urine drug screen -psychiatry evaluation -correct any underlying electroyte disturbances -avoid any opiates or other sedatives -rpr -vit vi12 -c/w ceftraiaxone 1g IV daily and f/u urine culture #Afib- rate is controlled -c/w eliquis 2.5mg po bid -toprolol 100mg po daily #Parkinsonism -levadopa/carbidopa -Mirabegron -pramipexole #DM -novolog sliding scale -DM DVT ppx- on eliquis Visit type - Emergency Visit Emergency Visit: Yes ED Registration Date: 08/16/18 Care time: The patient presented to the Emergency Department on the above date and was hospitalized for further evaluation of their emergent condition. - New Patient This patient is new to me today: Yes Date on this admission: 08/16/18 - Critical Care Critical Care patient: No
[2018-08-16] MEDS ORDERED: HALOPERIDOL LACTATE 5 MG/ML IM PRN (20:59)
[2018-08-16] MEDS: CEFTRIAXONE 1 GM in DEXTROSE 5%-WATER - 50 ML IVPB SCH (21:20)
[2018-08-16] MEDS ORDERED: PATIENT'S OWN MEDICATION (NON-FORMULARY) (Mirabegron [Myrbetriq] 50 MG) PO SCH (22:00)
[2018-08-16] MEDS ORDERED: PATIENT'S OWN MEDICATION (NON-FORMULARY) (Benzonatate [Benzonatate] 200 MG) PO SCH (22:00)
[2018-08-16] MEDS ORDERED: APIXABAN 2.5 MG TABLET PO SCH (22:00)
[2018-08-16] MEDS ORDERED: HEPARIN NA (PORCINE) 5,000 UNITS/ML 1ML VIAL SQ SCH (22:00)
[2018-08-16] MEDS: CARBIDOPA/LEVODOPA 25/250 TABLET (FP) PO SCH (22:20)
[2018-08-16] MEDS: APIXABAN 2.5 MG TABLET PO SCH (22:30)
[2018-08-16] MEDS: ATORVASTATIN CA 10 MG TABLET (FP) PO SCH (22:30)
[2018-08-17] MEDS: INSULIN SLIDING SCALE (NOVOLOG) 1 VIAL SQ SCH ×5 (01:20→21:10)
[2018-08-17 05:27] VITALS: BMI 29.8
[2018-08-17 07:30] LABS: BASO % 0.7 % (0-2.0); EOS % 1.5 % (0-4.5); HEMATOCRIT 28.8 % (32.4-45.2); HEMOGLOBIN 9.3 GM/dL (10.7-15.3); LYMPH % 20.2 % (8-40); MCH 31.3 pg (25.7-33.7); MCHC 32.4 g/dl (32.0-36.0); MEAN CELL VOLUME 96.4 fl (80-96); MEAN PLT VOLUME 7.5 fl (7.5-11.1); MONO % 11.4 % (3.8-10.2); NEUT % 66.2 % (42.8-82.8); PLATELET COUNT 176 K/MM3 (134-434); RBC 2.98 M/mm3 (3.60-5.2); RDW 12.8 % (11.6-15.6); WHITE BLOOD COUNT 4.4 K/mm3 (4.0-10.0)
[2018-08-17] MEDS: PRAMIPEXOLE DIHYDROCHLORIDE 0.25 MG TABLET PO SCH (07:54)
[2018-08-17 08:01] LABS: ANION GAP 7 MMOL/L (8-16); BLOOD UREA NITROGEN 28 mg/dL (7-18); CALCIUM 8.5 mg/dL (8.5-10.1); CHLORIDE 113 mmol/L (98-107); CO2 20 mmol/L (21-32); CREATININE 1.5 mg/dL (0.55-1.3); GLUCOSE,RANDOM 139 mg/dL (74-106); POTASSIUM 4.3 mmol/L (3.5-5.1); SODIUM 139 mmol/L (136-145)
[2018-08-17] MEDS ORDERED: CEFTRIAXONE 1,000 MG in DEXTROSE 5%-WATER - 50 ML IVPB SCH (10:00)
[2018-08-17] MEDS ORDERED: PT OWN MED DRAWER 7, Y5N ONE ×2 (10:50→21:02)
[2018-08-17] MEDS ORDERED: DEXTROSE 5%-WATER - 50 ML IVPB ONE (10:51)
[2018-08-17] MEDS ORDERED: cefTRIAXone SODIUM 1 GM VIAL ONE (10:51)
[2018-08-17] MEDS: PANTOPRAZOLE 20 MG TABLET (FP) PO SCH (10:53)
[2018-08-17] MEDS: FERROUS SO4 325 MG TABLET (FP) PO SCH (10:53)
[2018-08-17] MEDS: CEFTRIAXONE 1 GM in DEXTROSE 5%-WATER - 50 ML IVPB SCH (10:53)
[2018-08-17] MEDS: APIXABAN 2.5 MG TABLET PO SCH ×2 (10:54→21:09)
[2018-08-17] MEDS: CARBIDOPA/LEVODOPA 25/250 TABLET (FP) PO SCH ×4 (10:54→21:09)
--- NOTE | 2018-08-17 13:28 | PN ---
Progress Note, Physician Chief Complaint: AWAKE MORE ALERT EVENTS AND NOTES REVIEWED - Current Medication List Current Medications: Active Medications Apixaban (Eliquis -) 2.5 mg PO BID [facility] Last Admin: 08/17/18 10:54 Dose: 2.5 mg Atorvastatin Calcium (Lipitor -) 10 mg PO HS [facility] Last Admin: 08/16/18 22:30 Dose: 10 mg Carbidopa/Levodopa (Sinemet 25/250 -) 1 each PO QID [facility] Last Admin: 08/17/18 10:54 Dose: 1 each Ferrous Sulfate (Feosol -) 325 mg PO DAILY [facility] Last Admin: 08/17/18 10:53 Dose: 325 mg Haloperidol (Haldol Injection (Fast Acting) -) 5 mg IM Q4H PRN PRN Reason: AGITATION Ceftriaxone Sodium 1 gm/ (Dextrose) 50 mls @ 100 mls/hr IVPB DAILY [facility]; Protocol Last Admin: 08/17/18 10:53 Dose: 100 mls/hr Insulin Aspart (Novolog Vial Sliding Scale -) 1 vial SQ ACHS [facility]; Protocol Last Admin: 08/17/18 11:54 Dose: Not Given Non-Formulary Medication (Mirabegron [Myrbetriq]) 50 mg PO HS [facility] Pantoprazole Sodium (Protonix -) 20 mg PO DAILY [facility] Last Admin: 08/17/18 10:53 Dose: 20 mg Pramipexole Dihydrochloride (Mirapex -) 0.25 mg PO AM [facility] Last Admin: 08/17/18 07:54 Dose: 0.25 mg - Objective Vital Signs: Vital Signs Temperature 98.2 F 08/17/18 05:00 Pulse Rate 78 08/17/18 05:00 Respiratory Rate 18 08/17/18 05:00 Blood Pressure 134/52 L 08/17/18 05:00 O2 Sat by Pulse Oximetry (%) 98 08/17/18 04:34 Constitutional: Yes: Mild Distress Eyes: Yes: WNL HENT: Yes: WNL Neck: Yes: WNL Cardiovascular: Yes: WNL Respiratory: Yes: WNL Gastrointestinal: Yes: WNL Genitourinary: Yes: Other Musculoskeletal: Yes: Muscle Weakness Edema: No Neurological: Yes: Confusion Labs: CBC, BMP 08/17/18 06:00 08/17/18 06:00 INR, PTT INR 1.26 (0.83-1.09) H 08/16/18 15:50 Problem List - Problems (1) Toxic metabolic encephalopathy Code(s): G92 - TOXIC ENCEPHALOPATHY (2) Hallucinations Code(s): R44.3 - HALLUCINATIONS, UNSPECIFIED (3) Urinary tract infection Code(s): N39.0 - URINARY TRACT INFECTION, SITE NOT SPECIFIED (4) Acute on chronic renal failure Code(s): N17.9 - ACUTE KIDNEY FAILURE, UNSPECIFIED; N18.9 - CHRONIC KIDNEY DISEASE, UNSPECIFIED Qualifiers: Acute renal failure type: unspecified Chronic kidney disease stage: unspecified stage Qualified Code(s): N17.9 - Acute kidney failure, unspecified ; N18.9 - Chronic kidney disease, unspecified (5) Altered mental status Code(s): R41.82 - ALTERED MENTAL STATUS, UNSPECIFIED (6) Anemia Code(s): D64.9 - ANEMIA, UNSPECIFIED Assessment/Plan IV ABX AMS IS IMPROVING PT EVAL OOB TO CHAIR CHECK CX ID FOLLOW UP
--- NOTE | 2018-08-17 16:57 | EKG ---
Test Reason : Blood Pressure : / mmHG Vent. Rate : 063 BPM Atrial Rate : 063 BPM P-R Int : 246 ms QRS Dur : 118 ms QT Int : 412 ms P-R-T Axes : 046 -56 -31 degrees QTc Int : 421 ms SINUS RHYTHM WITH 1ST DEGREE A-V BLOCK WITH PREMATURE ATRIAL COMPLEXES INCOMPLETE RIGHT BUNDLE BRANCH BLOCK LEFT ANTERIOR FASCICULAR BLOCK ABNORMAL ECG WHEN COMPARED WITH ECG OF 01-MAR-2018 01:37, T WAVE INVERSION MORE EVIDENT IN ANTERIOR LEADS QT HAS SHORTENED Confirmed by MD Callum, Scooter ([id number]) on 08/17/2018 4:56:59 PM Referred By: Confirmed By:Scooter Nolen MD
[2018-08-17] MEDS: ATORVASTATIN CA 10 MG TABLET (FP) PO SCH (21:09)
[2018-08-18] MEDS: INSULIN SLIDING SCALE (NOVOLOG) 1 VIAL SQ SCH ×3 (06:11→16:47)
[2018-08-18] MEDS: PRAMIPEXOLE DIHYDROCHLORIDE 0.25 MG TABLET PO SCH (06:11)
--- NOTE | 2018-08-18 09:05 | PN ---
Progress Note (short form) - Note Progress Note: ID consult dictated imp/reccd UTI hallucinations resolved REZA/CKD Parkinsons prior history of briceno sensitive ecoli continue ceftriaxone, can switch to po antibiotics when sensitivities available Problem List - Problems (1) Urinary tract infection Code(s): N39.0 - URINARY TRACT INFECTION, SITE NOT SPECIFIED (2) Hallucinations Code(s): R44.3 - HALLUCINATIONS, UNSPECIFIED (3) Acute on chronic renal failure Code(s): N17.9 - ACUTE KIDNEY FAILURE, UNSPECIFIED; N18.9 - CHRONIC KIDNEY DISEASE, UNSPECIFIED Qualifiers: Acute renal failure type: unspecified Chronic kidney disease stage: unspecified stage Qualified Code(s): N17.9 - Acute kidney failure, unspecified ; N18.9 - Chronic kidney disease, unspecified (4) Parkinson disease Code(s): G20 - PARKINSON'S DISEASE
[2018-08-18] MEDS ORDERED: cefTRIAXone SODIUM 1 GM VIAL ONE (09:17)
[2018-08-18] MEDS ORDERED: DEXTROSE 5%-WATER - 50 ML IVPB ONE (09:17)
[2018-08-18] MEDS: PANTOPRAZOLE 20 MG TABLET (FP) PO SCH (09:20)
[2018-08-18] MEDS: APIXABAN 2.5 MG TABLET PO SCH (09:20)
[2018-08-18] MEDS: CEFTRIAXONE 1 GM in DEXTROSE 5%-WATER - 50 ML IVPB SCH (09:20)
[2018-08-18] MEDS: CARBIDOPA/LEVODOPA 25/250 TABLET (FP) PO SCH ×2 (09:20→13:58)
[2018-08-18] MEDS: FERROUS SO4 325 MG TABLET (FP) PO SCH (09:20)
--- NOTE | 2018-08-18 10:41 | CONS ---
DATE OF CONSULTATION: DATE OF DICTATION: 08/18/2018 INFECTIOUS DISEASE CONSULTATION REQUESTING PHYSICIAN: Kurtis Yeh M.D. HISTORY OF PRESENT ILLNESS: This is an 88-year-old woman with a history of Parkinson disease, CKD, hypertension, atrial fibrillation. She lives at home. She had a UTI in early August and was treated with Bactrim. She subsequently developed hallucinations. She was brought to the hospital by her daughter with complaints of 1 week of bilateral foot swelling and decreased p.o. intake and 2 days of diarrhea. She is currently resting comfortably. Her diarrhea has resolved. She notes she has had the swelling in her legs before, and she has had no more visual hallucinations. She describes them as being quite scary at home. She was noted in the emergency room to have pyuria and was started on ceftriaxone. She had a head CT that was unremarkable for any acute changes, and she had a chest x-ray as well that was normal. PAST MEDICAL HISTORY: Notable for Parkinson disease, diabetes, anemia, hypertension, hyperlipidemia, chronic kidney disease, atrial fibrillation. She has a history of a thyroid goiter, B12 deficiency, osteoarthritis. She has had a TIA in the past and renal insufficiency. PAST SURGICAL HISTORY: Notable for cataract removal and hernia repair. SOCIAL HISTORY: She lives with her family. No history of cigarette, alcohol or substance use. FAMILY HISTORY: Unremarkable. ALLERGIES: NAPROXEN. MEDICATIONS: Her medications at home include ferrous sulfate, apixaban, simvastatin, Caltrate with vitamin D, glipizide, Slow-Mag, Januvia, B12 capsule, omeprazole, Mirapex, carbidopa, levodopa, Flonase, metoprolol and Myrbetriq. REVIEW OF SYSTEMS: She denies any fever or chills. She has had a mild loss of appetite and the hallucinations, which have resolved. She denies any dysuria, back pain or abdominal pain. PHYSICAL EXAMINATION: Vital Signs: Tmax was 99.2. Current temperature is 98.2. Pulse of 91, blood pressure 151/95, respiratory rate 20. She is saturating 98% on room air. General: She is a very pleasant elderly woman in no acute distress. She has a Parkinson's tremor. HEENT: She is normocephalic. Her eyes are anicteric. Neck: Supple. Lungs: Clear to auscultation. Heart: Irregularly irregular. Abdomen: Soft, nontender. She has no CVA or suprapubic tenderness. Extremities: She has bilateral pedal edema. DIAGNOSTIC STUDIES: Her labs are notable for white count of 4.4, hemoglobin 9.3, platelets 176. BUN 38 and creatinine 1.9 on admission. This morning, BUN 35 and creatinine 1.8. Hemoglobin A1c is 8.2. LFTs are normal. Urinalysis has 3+ leukocyte esterase with 167 white cells. Urine culture has lactose channel development manager. Head CT was notable for: A small chronic left thalamic infarct, mild periventricular chronic microvascular ischemic changes with no change from prior studies from 2017. Chest x-ray was notable for a large heart, and she has a left recorder device. ASSESSMENT AND RECOMMENDATIONS: In summary, this is an elderly woman admitted with urinary tract infection, hallucinations (which have resolved), acute kidney injury superimposed on chronic kidney disease. Some of this may have been precipitated by the Bactrim use. Overall, she appears to be improving. I would continue ceftriaxone until the culture results are back, at which time it would be reasonable to switch her to oral antibiotics. Further recommendations to follow. Joe [id number]
[2018-08-18] MEDS ORDERED: glipiZIDE-XL 2.5 MG TAB.ER.24 PO SCH (13:06)
[2018-08-18] MEDS ORDERED: MAGNESIUM CL 64 MG TABLET.SA PO SCH (13:15)
[2018-08-18] MEDS ORDERED: FLUTICASONE PROP 0.05% 16 GM NASAL SPRAY NS SCH (14:30)
[2018-08-18] MEDS ORDERED: sitaGLIPtin PHOSPHATE 50 MG TABLET PO SCH (14:30)
[2018-08-18 14:56] VITALS: BP 116/68; PULSE 79; TEMP 98.3
--- NOTE | 2018-08-18 15:46 | PN ---
Progress Note, Physician Chief Complaint: UTI Hallucinations History of Present Illness: No more hallucinations CT head unremarkable NAD AxOx3 now treated with Zosyn, changed to po abx cultures: Microbiology 08/16/18 15:42 Urine - Urine Clean Catch Urine Culture - Final Klebsiella Pneumoniae - Current Medication List Current Medications: Active Medications Apixaban (Eliquis -) 2.5 mg PO BID [facility] Last Admin: 08/18/18 09:20 Dose: 2.5 mg Atorvastatin Calcium (Lipitor -) 10 mg PO HS [facility] Last Admin: 08/17/18 21:09 Dose: 10 mg Carbidopa/Levodopa (Sinemet 25/250 -) 1 each PO QID [facility] Last Admin: 08/18/18 13:58 Dose: 1 each Cefuroxime Axetil (Ceftin -) 500 mg PO BID [facility] Ferrous Sulfate (Feosol -) 325 mg PO DAILY [facility] Last Admin: 08/18/18 09:20 Dose: 325 mg Fluticasone Propionate (Flonase -) 1 spray NS BID [facility] Last Admin: 08/18/18 15:42 Dose: Not Given Glipizide (Glucotrol Xl -) 5 mg PO BID [facility] Insulin Aspart (Novolog Vial Sliding Scale -) 1 vial SQ ACHS [facility]; Protocol Last Admin: 08/18/18 10:50 Dose: Not Given Magnesium Chloride (Slow-Mag -) 71.5 mg PO DAILY [facility] Metoprolol Succinate (Toprol Xl -) 50 mg PO DAILY [facility] Non-Formulary Medication (Mirabegron [Myrbetriq]) 50 mg PO HS [facility] Pantoprazole Sodium (Protonix -) 20 mg PO DAILY [facility] Last Admin: 08/18/18 09:20 Dose: 20 mg Pramipexole Dihydrochloride (Mirapex -) 0.25 mg PO AM [facility] Last Admin: 08/18/18 06:11 Dose: 0.25 mg Pramipexole Dihydrochloride (Mirapex -) 0.5 mg PO HS [facility] Sitagliptin Phosphate (Januvia -) 50 mg PO 0700 [facility] - Objective Vital Signs: Vital Signs Temperature 98.3 F 08/18/18 14:00 Pulse Rate 79 08/18/18 14:00 Respiratory Rate 20 08/18/18 14:00 Blood Pressure 116/68 08/18/18 14:00 O2 Sat by Pulse Oximetry (%) 98 08/18/18 00:36 Constitutional: Yes: Well Nourished, No Distress, Calm Cardiovascular: Yes: Regular Rate and Rhythm Respiratory: Yes: Regular Gastrointestinal: Yes: Normal Bowel Sounds, Soft Extremities: Yes: WNL Edema: No Peripheral Pulses WNL: Yes Neurological: Yes: Alert, Oriented Psychiatric: Yes: Alert, Oriented Labs: CBC, BMP 08/17/18 06:00 08/17/18 06:00 INR, PTT INR 1.26 (0.83-1.09) H 08/16/18 15:50 Problem List - Problems (1) CKD (chronic kidney disease) Assessment/Plan: -Cr at baseline -monitor trend outpatient Code(s): N18.9 - CHRONIC KIDNEY DISEASE, UNSPECIFIED (2) Hallucinations Assessment/Plan: -resolved -2/2 to metabolic encephalopathy Code(s): R44.3 - HALLUCINATIONS, UNSPECIFIED (3) Parkinson disease Code(s): G20 - PARKINSON'S DISEASE (4) Toxic metabolic encephalopathy Assessment/Plan: -resolved Code(s): G92 - TOXIC ENCEPHALOPATHY (5) Urinary tract infection Assessment/Plan: -Cephalexin 500 mg po BID x 7 days -hydration Code(s): N39.0 - URINARY TRACT INFECTION, SITE NOT SPECIFIED (6) Paroxysmal A-fib Assessment/Plan: -was on eliquis 5 bid? -Continue Eliquis 2.5 mg po bid Code(s): I48.0 - PAROXYSMAL ATRIAL FIBRILLATION Assessment/Plan see problem list did well with PT d/c home, spoke to daughter January.
--- NOTE | 2018-08-18 17:05 | PN ---
Mental Health Exam - Mental Status Exam Alert and Oriented to: Time, Place, Person Cognitive Function: Grossly Intact Patient Appearance: Well Groomed Mood: Hopeful, Happy Affect: Appropriate Patient Behavior: Appropriate, Cooperative Speech Pattern: Clear Voice Loudness: Normal Thought Process: Intact Thought Disorder: Not Present Hallucinations: None, Denies Suicidal Ideation: None, Denies Homicidal Ideation: None, Denies Insight/Judgement: Fair Sleep: Fair Appetite: Fair Muscle strength/Tone: Normal Gait/Station: Deferred Additional Comments: cLIENT IS 88 YO FEMALE WITH ah IN CONTEXT OF TAKING A NEW MEDICATION, MEDICATION INTERACTION?. rEAD AND REVIEWED NOTES, SPOKE WITH PATIENT EXTENSIVELY. CLIENT IS CALM IN GOOD BEHAVIOURAL CONTROL, NO DELERIUM, NO DEMENTIA, NO PSYCHOSIS OR DEPRESSION. CLIENT ACKNOWLEDGED THAT SHE LOST A CAT RECENTLY WAS LAST TIME SHE FELT SAD. oTHERWISE WHEN HER LEFT FOR [place], BUT NEVER TREATED FOR DEPRESSION OR IN PSYCH HOSPITAL. SOME TREMOR AT REST, MASK LIKE FEATURES. PLAN. TRANSITATORY HALLUCINATION MAY BE ASSOCIATED WITH MEDICATION, NOW CLEAR,. NO NEED TO FOLLOW UP WITH PSYCHIATRY ON DISCHARGE,
[2018-08-18] MEDS ORDERED: PRAMIPEXOLE DIHYDROCHLORIDE 0.5 MG TABLET PO SCH (22:00)
[2018-08-18] MEDS ORDERED: CEFUROXIME AXETIL 500 MG TABLET PO SCH (22:00)
== END 2018-08-18 17:12 | disposition home or self-care (01) ==
LOC: JER 13:47 → UNDOADMOB 18:09 → INTOOBSV 18:09 → JERBED 18:09 → J6S 08-17 03:07
PROVIDERS: ADMIT Family Medicine; ATTEND Family Medicine
DX: N39.0 Urinary tract infection, site not specified (principal); R44.1 Visual hallucinations; R44.0 Auditory hallucinations; G92 Toxic encephalopathy; R41.82 Altered mental status, unspecified; E11.22 Type 2 diabetes mellitus with diabetic chronic kidney disease; I12.9 Hypertensive chronic kidney disease with stage 1 through stage 4 chronic kidney disease, or unspecified chronic kidney disease; N18.9 Chronic kidney disease, unspecified; N17.9 Acute kidney failure, unspecified; Z79.4 Long term (current) use of insulin; E78.5 Hyperlipidemia, unspecified; I48.0 Paroxysmal atrial fibrillation; E04.9 Nontoxic goiter, unspecified; D64.9 Anemia, unspecified; G20 Parkinson's disease; F02.80 Dementia in other diseases classified elsewhere, unspecified severity, without behavioral disturbance, psychotic disturbance, mood disturbance, and anxiety; D51.9 Vitamin B12 deficiency anemia, unspecified; M19.90 Unspecified osteoarthritis, unspecified site; Z79.01 Long term (current) use of anticoagulants
CPT/HCPCS: 36415; 70450-TC; 71045-TC-FY; 80048; 80053; 81003; 81015; 82607; 82962; 83880; 84443; 84484; 85025; 85610; 85730; 86593; 87086; 87186; 93005; 93010; 96374; 96376; 97116-GP; 97161-GP; 99284-25; G0378

== ENCOUNTER 2018-09-02 18:44 | Observation (INO) | payer BC, OTHER ==
--- NOTE | 2018-09-02 19:44 | PDOC ---
History of Present Illness - General Chief Complaint: Injury Stated Complaint: FALL/HEAD INJURY Time Seen by Provider: 09/02/18 19:43 - History of Present Illness Initial Comments: 88yo F with PMH of Afib on eliquis, NIDDM, HTN, HLD, Parkinsons dementia, recent admission for UTI about 2.5 weeks ago presenting after an unwitnessed fall. Patient is coming from home and states she was walking onto the porch when she fell and hit her head and left side against the ground. She is endorsing pain and bruising in her left forehead, left knee, and left thigh, consistent with the areas of impact. Denies loss of consciousness, nausea, or vomiting. No history of seizures. Unknown when her last tetanus shot was. She has had previous mechanical falls according to her daughter who is at the bedside. Patient ambulates with a walker outside of the home, but not at home. Denies fever, chills, shortness of breath, or chest pain. Past History - Past Medical History Allergies/Adverse Reactions: Allergies Allergy/AdvReac Type Severity Reaction Status Date / Time naproxen [From Naprosyn] AdvReac Intermediate Verified 09/02/18 19:00 Home Medications: Ambulatory Orders Ferrous Sulfate [Feosol] 325 mg PO DAILY 03/30/14 Simvastatin [Zocor -] 20 mg PO HS 04/16/14 Oliver/D3/Mag11/Zinc/Prototype Machine Operator/Jonny/Bor [Caltrate 600+D Plus Tablet] 2 each PO DAILY Glipizide [Glipizide Xl] 5 mg PO BID 09/10/14 Magnesium Chloride [Slow-Mag -] 71.5 mg PO DAILY 09/10/14 Sitagliptin Phosphate [Januvia] 50 mg PO DAILY 04/13/17 B2/Vits A,C,E/Lut/Zeaxanth/Min [Icaps Tablet] 2 each PO DAILY 02/28/18 Omeprazole 20 mg PO DAILY 02/28/18 Pramipexole Dihydrochloride [Mirapex -] 0.25 mg PO AM 02/28/18 Pramipexole Dihydrochloride [Mirapex -] 0.5 mg PO HS 02/28/18 Benzonatate 200 mg PO TID 08/16/18 Carbidopa/Levodopa [Carbidopa-Levodopa 25-250 Tab] 1 each PO QID 08/16/18 Fluticasone Prop 0.05% Nasal [Flonase -] 1 - 2 spray NS BID 08/16/18 Mirabegron [Myrbetriq] 50 mg PO HS 08/16/18 Apixaban [Eliquis -] 2.5 mg PO BID #60 tablet 08/18/18 Cephalexin Monohydrate [Keflex -] 500 mg PO BID #14 capsule 08/18/18 Metoprolol Succinate [Toprol XL -] 25 mg PO DAILY #30 tab.sr.24h 08/18/18 Anemia: Yes Asthma: No Cardiac Disorders: Yes (atrial fibrillation) CVA: Yes (TIA) COPD: No Diabetes: Yes (NIDDM) GI Disorders: (hernia) HTN: Yes Hypercholesterolemia: Yes Thyroid Disease: Yes (goiter) - Surgical History Abdominal Surgery: Yes (HERNIA) Orthopedic Surgery: (arthritis finger surgery) - Immunization History Immunization Up to Date: No - Suicide/Smoking/Psychosocial Hx Smoking History: Never smoked Have you smoked in the past 12 months: No Hx Alcohol Use: No Drug/Substance Use Hx: No Hx Substance Use Treatment: No Review of Systems - Review of Systems Comments:: Constitutional: no fever, no chills HEENT: no throat pain, no dysphagia Cardiovascular: no chest pain, no palpitations Respiratory: no cough, no shortness of breath Gastrointestinal: no abdominal pain, no nausea, no vomiting Genitourinary: no dysuria, no frequency Musculoskeletal: no myalgia, no arthralgia Skin: +bruising, no itching Neurologic: +headache, no dizziness *Physical Exam - Vital Signs Last Vital Signs Temp Pulse Resp BP Pulse Ox 97.2 F L 76 16 167/61 97 09/02/18 19:01 09/02/18 19:01 09/02/18 19:01 09/02/18 19:01 09/02/18 19:01 - Physical Exam Comments: General: Awake, alert, and fully oriented, in no acute distress Head: Ecchymosis present on left forehead with significant edema, superficial laceration Eyes: EOMI, sclera anicteric ENT: Moist mucus membranes Neck: Normal ROM, supple Lungs: Lungs clear, Normal breath sounds Cardio: Regular rhythm, S1 and S2 present Abdomen: Soft, nontender. No guarding, no rebound, no masses Extremities: Normal range of motion, Distal pulses present SKIN: Ecchymosis on left knee Neurologic: Cranial nerves II through XII grossly intact. Normal speech, sensation, coordination, and gait. 2+ strength on RLE, 1+ strength on LLE due to pain limiting exam Moderate Sedation - Procedure Monitoring Vital Signs: Procedure Monitoring Vital Signs Temperature 97.2 F L 09/02/18 19:01 Pulse Rate 76 09/02/18 19:01 Respiratory Rate 16 09/02/18 19:01 Blood Pressure 167/61 09/02/18 19:01 O2 Sat by Pulse Oximetry (%) 97 09/02/18 19:01 ED Treatment Course - LABORATORY CBC & Chemistry Diagram: 09/03/18 00:05 09/03/18 00:05 Medical Decision Making - Medical Decision Making Patient not present in B 09/02/18 19:48 88yo F with history of Afib on Eliquis, NIDDM, HTN, HLD, Parkinson's, recent admission for UTI 2.5 weeks ago presenting after a fall. -CT Head and Cspine -Radiographs of L. knee, L. femur, L. hip/Pelvis -1000mg Tylenol -Reassess -Likely repeat head CT at 12am, 6 hours after fall 09/02/18 20:28 Updated patient and daughter, January ([phone]) 09/02/18 22:46 Radiographs of L. hip/pelvis, L. knee, L. femur without acute pathology (my impression) First CT head and Cspine negative for acute pathology (radiologist's impression) Patient is able to walk, but can likely benefit from PT consult and social work consult regarding possibility of home health aide EKG, rate 64, QTc 427, Sinus rhythm bifascicular block present on previous EKG 08/16/[address] warranted due to patient's current anticoagulation therapy on eliquis 09/03/18 01:41 Discussed case with TOM Rowland who accepted patient for admission under Dr. Mercer 09/03/18 01:52 *DC/Admit/Observation/Transfer Diagnosis at time of Disposition: Fall Qualifiers: Encounter type: initial encounter Qualified Code(s): W19.XXXA - Unspecified fall, initial encounter - Discharge Dispostion Condition at time of disposition: Stable Decision to Admit order: Yes - Referrals - Patient Instructions - Post Discharge Activity
[2018-09-02] MEDS ORDERED: ACETAMINOPHEN 500 MG TABLET (FP) PO ONE (20:15)
[2018-09-02] MEDS ORDERED: DIPHTH,PERTUSS(ACELL),TET 0.5 ML DISP.SYRIN IM ONE ×2 (20:15→20:39)
[2018-09-02] MEDS ORDERED: ACETAMINOPHEN 325 MG TABLET (FP) PO ONE (20:34)
[2018-09-02] MEDS ORDERED: ACETAMINOPHEN 325 MG TABLET (FP) ONE (20:39)
--- NOTE | 2018-09-02 20:50 | PDOC ---
Attending Attestation - Resident Resident Name: Corinne Albarran - ED Attending Attestation I have performed the following: I have examined & evaluated the patient, The case was reviewed & discussed with the resident, I agree w/resident's findings & plan - HPI HPI: 09/02/18 20:44 88y/o F h/o afib on tyesha, parkinson's with tremor but able to perform ADLs and ambulates with walker outdoors presents with An fall this evening around 6 PM. Patient was answering the door when she mechanical fall to the ground, struck her left head and left leg. No lightheadedness or syncope, no loss of consciousness, complaining of left frontal headache and left leg pain without motor or sensory deficit. No vision change or speech change, no neck pain or focal weakness. No nausea vomiting. - Physicial Exam PE: 09/02/18 20:49 Vital signs within normal limits, slightly elevated blood pressure General: Patient is alert and in no acute distress. Speech is clear and appropriate. Resting tremor. Head: Nontender, large left forehead hematoma with superficial abrasion but no laceration. No underlying bony tenderness or orbital deformity, extraocular movements are intact. HEENT: Pupils are equal round and reactive to light, extraocular movements are intact. No facial deformity/tenderness, no septal hematoma. The oropharynx is clear. Neck: The trachea is midline, there is no stridor. There is no midline cervical spine tenderness, full range of motion of neck. Chest: Nontender, no ecchymosis or abrasions. Heart: irregular with normal rate. Lungs: Clear to auscultation bilaterally. Symmetric chest rise. Abdomen: Soft/nontender/nondistended. Bowel sounds are normal. There is no abdominal or flank ecchymosis. Back/Pelvis: There is no midline spine tenderness or step-off. Pelvis is stable and nontender. Extremities: superficial ecchymosis over both knees/patellae, L worse than R. Also small subcutaneous hematoma over anterolateral aspect mid thigh. There is no extremity deformity or joint swelling. No focal bony tenderness throughout. FROM b/l hips/knees/ankles/toes with full strength. 2+ distal pulses throughout. Neuro: Alert and oriented x3. Cranial nerves II through XII are intact. 5 out of 5 motor strength x4 extremities. [id number] is intact. Gait deferred for now. Skin: L forehead and LLE bruising as noted, no lacerations. Psych: Affect is appropriate. - Medical Decision Making 09/02/18 20:52 88-year-old female on eliquis presents with mechanical fall likely secondary to underlying Parkinson's, positive head injury with normal GCS and neurological exam, positive left leg contusions and neurovascularly intact, rule out fracture. CT head, left hip/knee x-rays Pain control Will need reassessment if above imaging is within normal limits to determine returned to baseline. If at baseline and ambulating, consider discharge if repeat CT is negative to rule out delayed bleeding. If not at baseline or if imaging abnormal, will need admission. 09/02/18 22:53 CT without TBI, x-rays on my preliminary review showed no acute fracture. Patient remains alert and neurologically intact, able to ambulate with some generalized weakness and mild left flank discomfort. Discussed with patient and daughter, patient lives alone without assistance and there is some concern regarding her ability to care for herself as she normally does. We will perform second CT to rule out delayed bleeding, proceed with observation status for PT eval and establishing VNS evaluation for mobile homes repairer. Heart Score/ECG Review #1 ECG reviewed & interpreted by me at: 00:43 General ECG Interpretation: Sinus Rhythm, Normal Rate (64), Normal Intervals ( bifascicular block, qtc 427), No acute ischemic changes
[2018-09-03 00:56] LABS: BASO % 0.8 % (0-2.0); EOS % 1.2 % (0-4.5); HEMATOCRIT 27.9 % (32.4-45.2); HEMOGLOBIN 9.8 GM/dL (10.7-15.3); LYMPH % 11.3 % (8-40); MCH 33.2 pg (25.7-33.7); MCHC 35.1 g/dl (32.0-36.0); MEAN CELL VOLUME 94.7 fl (80-96); MEAN PLT VOLUME 7.8 fl (7.5-11.1); MONO % 9.5 % (3.8-10.2); NEUT % 77.2 % (42.8-82.8); PLATELET COUNT 229 K/MM3 (134-434); RBC 2.95 M/mm3 (3.60-5.2); RDW 12.5 % (11.6-15.6); WHITE BLOOD COUNT 5.2 K/mm3 (4.0-10.0)
[2018-09-03 01:31] LABS: ALK PHOS 69 U/L (45-117); ANION GAP 7 MMOL/L (8-16); BLOOD UREA NITROGEN 24 mg/dL (7-18); CALCIUM 8.8 mg/dL (8.5-10.1); CHLORIDE 106 mmol/L (98-107); CO2 21 mmol/L (21-32); CREATININE 1.5 mg/dL (0.55-1.3); GLUCOSE,RANDOM 177 mg/dL (74-106); POTASSIUM 4.6 mmol/L (3.5-5.1); SGOT/AST 16 U/L (15-37); SGPT/ALT 8 U/L (13-61); SODIUM 134 mmol/L (136-145)
--- NOTE | 2018-09-03 01:58 | HP ---
Admitting History and Physical - Primary Care Physician PCP: Kurtis Yeh - Admission Chief Complaint: s/p Mechanical Fall, Head Trauma History of Present Illness: This is a 88 y/o woman from home with a past medical history of Afib (on Eliquis ), HTN, HLD, DM, Dementia. Who presents to the ED s/p mechanical fall, hematoma to forehead. Patient is on Eliquis for Afib. Patient has new slippers which she wore while going to answer door she tripped hitting her head on the floor. Patient denies LOC or dizziness. Patient has a walker most times to get around, but did not use it last night. Patient reports frontal head pain and left knee pain. 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: TIA, Parkinson's Cardiovascular: Yes: AFIB, CAD, HTN, Hyperlipdemia Gastrointestinal: Yes: GERD Renal/: Yes: Renal Inusuff Heme/Onc: Yes: Anemia, B12 Deficiency Musculoskeletal: Yes: Osteoarthritis Endocrine: Yes: Diabetes Mellitus - Past Surgical History Past Surgical History: Yes: Cataract Removal, Hernia Repair - Smoking History Smoking history: Never smoked Have you smoked in the past 12 months: No - Alcohol/Substance Use Hx Alcohol Use: No - Social History Usual Living Arrangement: Yes: Alone ADL: Independent History of Recent Travel: No Home Medications - Allergies Allergies/Adverse Reactions: Allergies Allergy/AdvReac Type Severity Reaction Status Date / Time naproxen [From Naprosyn] AdvReac Intermediate Verified 09/02/18 19:00 - Home Medications Home Medications: Ambulatory Orders Ferrous Sulfate [Feosol] 325 mg PO DAILY 03/30/14 Simvastatin [Zocor -] 20 mg PO HS 04/16/14 Oliver/D3/Mag11/Zinc/Rheologist/Jonny/Bor [Caltrate 600+D Plus Tablet] 2 each PO DAILY Glipizide [Glipizide Xl] 5 mg PO BID 09/10/14 Magnesium Chloride [Slow-Mag -] 71.5 mg PO DAILY 09/10/14 Sitagliptin Phosphate [Januvia] 50 mg PO DAILY 04/13/17 B2/Vits A,C,E/Lut/Zeaxanth/Min [Icaps Tablet] 2 each PO DAILY 02/28/18 Omeprazole 20 mg PO DAILY 02/28/18 Pramipexole Dihydrochloride [Mirapex -] 0.25 mg PO AM 02/28/18 Pramipexole Dihydrochloride [Mirapex -] 0.5 mg PO HS 02/28/18 Benzonatate 200 mg PO TID 08/16/18 Carbidopa/Levodopa [Carbidopa-Levodopa 25-250 Tab] 1 each PO QID 08/16/18 Fluticasone Prop 0.05% Nasal [Flonase -] 1 - 2 spray NS BID 08/16/18 Mirabegron [Myrbetriq] 50 mg PO HS 08/16/18 Apixaban [Eliquis -] 2.5 mg PO BID #60 tablet 08/18/18 Cephalexin Monohydrate [Keflex -] 500 mg PO BID #14 capsule 08/18/18 Metoprolol Succinate [Toprol XL -] 25 mg PO DAILY #30 tab.sr.24h 08/18/18 Family Disease History - Family Disease History Family History: Unremarkable Review of Systems - Review of Systems Constitutional: reports: No Symptoms Eyes: reports: No Symptoms HENT: reports: Other (frontal head pain) Neck: reports: No Symptoms Cardiovascular: 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) Respiratory: reports: No Symptoms Gastrointestinal: reports: No Symptoms Genitourinary: reports: No Symptoms Breasts: reports: No Symptoms Reported Musculoskeletal: reports: Extremity Pain, Joint Pain Integumentary: reports: Bruising Neurological: reports: No Symptoms Endocrine: reports: No Symptoms Hematology/Lymphatic: reports: Easily Bruised Psychiatric: reports: No Symptoms Pain Intensity: 5 Physical Examination Vital Signs: Vital Signs Temperature 97.2 F L 09/02/18 19:01 Pulse Rate 76 09/02/18 19:01 Respiratory Rate 16 09/02/18 19:01 Blood Pressure 167/61 09/02/18 19:01 O2 Sat by Pulse Oximetry (%) 97 09/02/18 19:01 Constitutional: Yes: No Distress, Calm Eyes: Yes: WNL, Conjunctiva Clear (right eye), EOM Intact (right eye), PERRL HENT: Yes: Normocephalic, Other (hematoma to mid frontal aspect) Neck: Yes: WNL, Supple, Trachea Midline Cardiovascular: Yes: WNL, Regular Rate and Rhythm, S1, S2 Respiratory: Yes: WNL, Regular, CTA Bilaterally Gastrointestinal: Yes: WNL, Normal Bowel Sounds, Soft Renal/: Yes: WNL Breast(s): Yes: WNL Musculoskeletal: Yes: Joint Swelling (Left knee) Edema: No Peripheral Pulses WNL: Yes Integumentary: Yes: Bruising (mid forehead left thigh left knee) Neurological: Yes: WNL, Alert, Oriented, Cran Nerves II-XII Intact ...Motor Strength: WNL Psychiatric: Yes: WNL, Alert, Oriented Labs: CBC, BMP 09/03/18 00:05 09/03/18 00:05 Imaging - Results Chest X-ray: Image Reviewed X-ray: Image Reviewed Cat Scan: Report Reviewed, Image Reviewed Problem List - Problems (1) Fall Assessment/Plan: Mechanical at home Likely secondary to footwear Head CT- neg ICH, chronic lacunar infarct C- Spine Xray- neg fx or subluxation Hip/Pelvis/Femur image- no obvious fx, awaiting official reports PT eval- gait strengthening 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, patient lives alone Fall Precautions Repeat Head CT in am Code(s): W19.XXXA - UNSPECIFIED FALL, INITIAL ENCOUNTER Qualifiers: Encounter type: initial encounter Qualified Code(s): W19.XXXA - Unspecified fall, initial encounter (2) Closed head injury Assessment/Plan: See Above Repeat Head CT in am r/o ICH Code(s): S09.90XA - UNSPECIFIED INJURY OF HEAD, INITIAL ENCOUNTER Qualifiers: Encounter type: initial encounter Qualified Code(s): S09.90XA - Unspecified injury of head, initial encounter (3) Diabetes mellitus Assessment/Plan: Controlled BGMs ISS Code(s): E11.9 - TYPE 2 DIABETES MELLITUS WITHOUT COMPLICATIONS Qualifiers: Diabetes mellitus type: type 2 (4) Diastolic dysfunction without heart failure Assessment/Plan: stable Fluid Restriction 1L Chest Xray image- cardiomegaly, no change from prior film 08/16/18 Code(s): I51.89 - OTHER ILL-DEFINED HEART DISEASES (5) Paroxysmal A-fib Assessment/Plan: Stable EKG- [id number] Continue Eliquis Code(s): I48.0 - PAROXYSMAL ATRIAL FIBRILLATION (6) Renal insufficiency Assessment/Plan: Stable Cr 1. Code(s): N28.9 - DISORDER OF KIDNEY AND URETER, UNSPECIFIED (7) HTN (hypertension) Assessment/Plan: Controlled Monitor BP Continue home med Code(s): I10 - ESSENTIAL (PRIMARY) HYPERTENSION Qualifiers: Hypertension type: essential hypertension Qualified Code(s): I10 - Essential (primary) hypertension (8) Hyperlipidemia Assessment/Plan: Continue home med Code(s): E78.5 - HYPERLIPIDEMIA, UNSPECIFIED Qualifiers: Hyperlipidemia type: pure hypercholesterolemia Qualified Code(s): E78.00 - Pure hypercholesterolemia, unspecified; E78.0 - Pure hypercholesterolemia Assessment/Plan This is a 88 y/o woman who lives at home with PMHx of Afib (on Eliquis), Parkinson's, Dementia, HLD. Placed in Observation for s/p Mechanical Fall, Head Trauma for further evaluation of their emergent condition. Plan: See Problem List FEN- PO fluids as indicated, Replete lytes prn, Low Na, Diabetic Diet DVT ppx- OOB, SCDs, Continue Eliquis Dispo: Observation Visit type - Emergency Visit Emergency Visit: Yes ED Registration Date: 09/02/18 Care time: The patient presented to the Emergency Department on the above date and was hospitalized for further evaluation of their emergent condition. - New Patient This patient is new to me today: Yes Date on this admission: 09/03/18 - Critical Care Critical Care patient: No
[2018-09-03 04:16] VITALS: BMI 27.8
[2018-09-03] MEDS: glipiZIDE-XL 5 MG TAB.ER.24 PO SCH ×2 (06:01→16:47)
[2018-09-03] MEDS ORDERED: sitaGLIPtin PHOSPHATE 50 MG TABLET PO SCH (07:00)
[2018-09-03] MEDS ORDERED: PANTOPRAZOLE 20 MG TABLET (FP) PO SCH (10:00)
[2018-09-03] MEDS ORDERED: APIXABAN 2.5 MG TABLET PO SCH (10:00)
[2018-09-03] MEDS ORDERED: MULTIVITAMINS THER W-MINERALS COMBO TABLET (FP) PO SCH (10:00)
[2018-09-03] MEDS ORDERED: MAGNESIUM CL 64 MG TABLET.SA PO SCH (10:00)
[2018-09-03] MEDS ORDERED: PRAMIPEXOLE DIHYDROCHLORIDE 0.25 MG TABLET PO SCH (10:00)
[2018-09-03] MEDS ORDERED: metoPROLOL SUCCINATE 25 MG TAB.SR.24H (FP) PO SCH ×2 (10:00)
[2018-09-03] MEDS ORDERED: CALCIUM 500MG/VIT-D 200 UNITS COMBO TABLET (FP) PO SCH (10:00)
[2018-09-03] MEDS ORDERED: PT OWN MED DRAWER 7, Y5N ONE (11:20)
[2018-09-03] MEDS: FLUTICASONE PROP 0.05% 16 GM NASAL SPRAY NS SCH ×2 (11:22→16:47)
--- NOTE | 2018-09-03 11:53 | EKG ---
Test Reason : Blood Pressure : / mmHG Vent. Rate : 064 BPM Atrial Rate : 064 BPM P-R Int : 230 ms QRS Dur : 120 ms QT Int : 414 ms P-R-T Axes : 061 -63 -33 degrees QTc Int : 427 ms SINUS RHYTHM WITH 1ST DEGREE A-V BLOCK RIGHT BUNDLE BRANCH BLOCK LEFT ANTERIOR FASCICULAR BLOCK BIFASCICULAR BLOCK ABNORMAL ECG WHEN COMPARED WITH ECG OF 16-AUG-2018 15:48, PREMATURE ATRIAL COMPLEXES ARE NO LONGER PRESENT NONSPECIFIC T WAVE ABNORMALITY NO LONGER EVIDENT IN LATERAL LEADS Confirmed by KARUNA LONG, JERARDO ([id number]) on 09/03/2018 11:53:37 AM Referred By: Confirmed By:JERARDO BECKMAN MD
--- NOTE | 2018-09-03 13:45 | DS ---
Physical Examination Vital Signs: Vital Signs Temperature 98.3 F 09/03/18 08:00 Pulse Rate 74 09/03/18 08:00 Respiratory Rate 18 09/03/18 08:00 Blood Pressure 120/61 09/03/18 08:00 O2 Sat by Pulse Oximetry (%) 98 09/03/18 04:01 Constitutional: Yes: Well Nourished, No Distress, Calm Eyes: Yes: Conjunctiva Clear HENT: Yes: Other (frontal hematoma) Neck: Yes: Supple Cardiovascular: Yes: Regular Rate and Rhythm Respiratory: Yes: Regular, CTA Bilaterally Gastrointestinal: Yes: Normal Bowel Sounds, Soft Musculoskeletal: Yes: Muscle Weakness Extremities: Yes: WNL Edema: No Integumentary: Yes: Other (B/L periorbital ecchymosis, L knee ecchymosis, L forehead hematoma) Neurological: Yes: Alert, Oriented (to person,place, time) Psychiatric: Yes: Alert, Oriented Labs: CBC, BMP 09/03/18 00:05 09/03/18 00:05 Discharge Summary Reason For Visit: FALL Procedures: Principal: Head CT scan. EKG. CXR. L knee xray. Hip/Pelvic xray. Femur xray. Cervical Spine CT Hospital Course: Patient is an 88 y/o female resident brought to [facility] ED s/p mechanical fall. Patient states she tripped after wearing new slippers. Denies any dizziness prior to fall. Denies LOC. Currently on AC (Eliquis) for a-fib. Patient had multiple xrays which show no fracture or dislocation. Head CT scan performed initially in ED and repeat this morning, and both are neg for ICH. Patient today states that pain is better than yesterday. Periorbital ecchymosis noted with L forehead hematoma. Facial bone xray ordered STAT to r/ o any facial fracture, results pending. Patient and family are requesting for discharge today. Patient states her grandson lives with her. VNS services initiated by medical case manager for JOB ORDER CLERK services. Lab work reviewed, mildly elev BUN/ Cr, pt sees clinical project leader outpatient. Patient and family wish for discharge today. If facial bone xray neg for fracture patient to be discharged home. Condition: Improved - Instructions Diet, Activity, Other Instructions: Patient to follow up with PMD in 3-4 days Follow up with clinical project leader Instructed daughter Kira on warning signs: acute change in mental status, sudden onset nausea/vomiting, sudden onset of severe head pain cont with low Na/diabetic diet VNS services initiated for JOB ORDER CLERK cont with current med regimen apply ice to forehead, 20min on 20min off for 1 hr every 4hr tylenol for pain management Referrals: Kurtis Yeh MD [Primary Care Provider] - Disposition: HOME - Home Medications Comprehensive Discharge Medication List: Ambulatory Orders Ferrous Sulfate [Feosol] 325 mg PO DAILY 03/30/14 Simvastatin [Zocor -] 20 mg PO HS 04/16/14 Oliver/D3/Mag11/Zinc/Vp Transportation/Jonny/Bor [Caltrate 600+D Plus Tablet] 2 each PO DAILY Glipizide [Glipizide Xl] 5 mg PO BID 09/10/14 Magnesium Chloride [Slow-Mag -] 71.5 mg PO DAILY 09/10/14 Sitagliptin Phosphate [Januvia] 50 mg PO DAILY 04/13/17 B2/Vits A,C,E/Lut/Zeaxanth/Min [Icaps Tablet] 2 each PO DAILY 02/28/18 Omeprazole 20 mg PO DAILY 02/28/18 Pramipexole Dihydrochloride [Mirapex -] 0.25 mg PO AM 02/28/18 Pramipexole Dihydrochloride [Mirapex -] 0.5 mg PO HS 02/28/18 Benzonatate 200 mg PO TID 08/16/18 Carbidopa/Levodopa [Carbidopa-Levodopa 25-250 Tab] 1 each PO QID 08/16/18 Fluticasone Prop 0.05% Nasal [Flonase -] 1 - 2 spray NS BID 08/16/18 Mirabegron [Myrbetriq] 50 mg PO HS 08/16/18 Apixaban [Eliquis -] 2.5 mg PO BID #60 tablet 08/18/18 Cephalexin Monohydrate [Keflex -] 500 mg PO BID #14 capsule 08/18/18 Metoprolol Succinate [Toprol XL -] 25 mg PO DAILY #30 tab.sr.24h 08/18/18
[2018-09-03] MEDS: CARBIDOPA/LEVODOPA 25/250 TABLET (FP) PO SCH ×3 (14:07→17:02)
[2018-09-03 14:38] VITALS: BP 131/58; PULSE 82; TEMP 97.7
[2018-09-03] MEDS ORDERED: PATIENT'S OWN MEDICATION (NON-FORMULARY) (Mirabegron [Myrbetriq] 50 MG) PO SCH (22:00)
[2018-09-03] MEDS ORDERED: PRAMIPEXOLE DIHYDROCHLORIDE 0.5 MG TABLET PO SCH (22:00)
[2018-09-03] MEDS ORDERED: ATORVASTATIN CA 10 MG TABLET (FP) PO SCH (22:00)
== END 2018-09-03 17:13 | disposition home health service (06) ==
LOC: JER 18:44 → JERBED 09-03 01:53 → J7W 09-03 03:57
PROVIDERS: ADMIT Internal Medicine; ATTEND Family Medicine
PROC: 3E0234Z Introduction of Serum, Toxoid and Vaccine into Muscle, Percutaneous Approach (ICD-10-PCS; principal; 2018-09-03)
DX: Z04.3 Encounter for examination and observation following other accident (principal); S09.90XA Unspecified injury of head, initial encounter; I11.0 Hypertensive heart disease with heart failure; I48.0 Paroxysmal atrial fibrillation; I51.89 Other ill-defined heart diseases; I25.10 Atherosclerotic heart disease of native coronary artery without angina pectoris; E78.5 Hyperlipidemia, unspecified; E11.9 Type 2 diabetes mellitus without complications; G20 Parkinson's disease; F02.80 Dementia in other diseases classified elsewhere, unspecified severity, without behavioral disturbance, psychotic disturbance, mood disturbance, and anxiety; D64.9 Anemia, unspecified; E04.9 Nontoxic goiter, unspecified; N27.9 Small kidney, unspecified; K21.9 Gastro-esophageal reflux disease without esophagitis; E53.8 Deficiency of other specified B group vitamins; M19.90 Unspecified osteoarthritis, unspecified site; Z79.01 Long term (current) use of anticoagulants; Z79.84 Long term (current) use of oral hypoglycemic drugs; W01.198A Fall on same level from slipping, tripping and stumbling with subsequent striking against other object, initial encounter; Z91.81 History of falling; Y93.01 Activity, walking, marching and hiking; Y92.008 Other place in unspecified non-institutional (private) residence as the place of occurrence of the external cause
CPT/HCPCS: 36415; 70150-TC-FY; 70450-TC; 71045-TC-FY; 72125-TC; 73523-TC-FY; 73552-TC-LT-FY; 73560-TC-LT-FY; 80053; 82962; 85025; 90471; 90715; 93005; 93010; 97116-GP; 97161-GP; 99285-25; G0378

== ENCOUNTER 2018-10-12 14:22 | Inpatient (IN) | payer OTHER ==
--- NOTE | 2018-10-12 14:30 | PDOC ---
Rapid Medical Evaluation Chief Complaint: Injury Time Seen by Provider: 10/12/18 14:26 Medical Evaluation: Allergies Allergy/AdvReac Type Severity Reaction Status Date / Time naproxen [From Naprosyn] AdvReac Intermediate Verified 09/02/18 19:00 10/12/18 14:28 I have performed a brief in person evaluation of this patient. CC: Head pain post injury HPI: Pt is a 88 YO female who states she was vacuuming and she fell on the back of her head. Denies LOC however is on anticoagulants. PE: Skin: Clear Lungs: Clear Heart:RRR MS: Moves all extremities without difficulty Neuro: Alert and oriented Psych: Appropriate affect I have ordered the following: Head CT Pt will proceed to the main ED for further evaluation. Discharge Disposition - Diagnosis Head injury Qualifiers: Encounter type: initial encounter Qualified Code(s): S09.90XA - Unspecified injury of head, initial encounter - Referrals - Patient Instructions - Post Discharge Activity
--- NOTE | 2018-10-12 15:06 | PDOC ---
History of Present Illness - General History Source: Patient - History of Present Illness Timing/Duration: reports: other (this am) <Noah Cox - Last Filed: 10/12/18 15:58> <Corinne Roque - Last Filed: 10/16/18 16:23> - General Chief Complaint: Injury Stated Complaint: FALL Time Seen by Provider: 10/12/18 14:26 Past History - Past Medical History Anemia: Yes Asthma: No Cardiac Disorders: Yes (atrial fibrillation) CVA: Yes (TIA) COPD: No CHF: No Diabetes: Yes (NIDDM) GI Disorders: (hernia) HTN: Yes Hypercholesterolemia: Yes Thyroid Disease: Yes (goiter) - Surgical History Abdominal Surgery: Yes (HERNIA) Appendectomy: No Cardiac Surgery: No Cholecystectomy: No Lung Surgery: No Neurologic Surgery: No Orthopedic Surgery: (arthritis finger surgery) - Immunization History Immunization Up to Date: No - Suicide/Smoking/Psychosocial Hx Smoking History: Never smoked Have you smoked in the past 12 months: No Hx Alcohol Use: No Drug/Substance Use Hx: No Hx Substance Use Treatment: No <Noah Cox - Last Filed: 10/12/18 15:58> <Corinne Roque - Last Filed: 10/16/18 16:23> - Past Medical History Allergies/Adverse Reactions: Allergies Allergy/AdvReac Type Severity Reaction Status Date / Time naproxen [From Naprosyn] AdvReac Intermediate Verified 10/12/18 14:29 Home Medications: Ambulatory Orders Ferrous Sulfate [Feosol] 325 mg PO DAILY 03/30/14 Simvastatin [Zocor -] 20 mg PO HS 04/16/14 Oliver/D3/Mag11/Zinc/Transitional Care Nurse/Jonny/Bor [Caltrate 600+D Plus Tablet] 2 each PO DAILY Glipizide [Glipizide Xl] 5 mg PO BID 09/10/14 Magnesium Chloride [Slow-Mag -] 64 mg PO DAILY 09/10/14 Sitagliptin Phosphate [Januvia] 50 mg PO DAILY 04/13/17 Omeprazole 20 mg PO DAILY 02/28/18 Pramipexole Dihydrochloride [Mirapex -] 0.25 mg PO AM 02/28/18 Carbidopa/Levodopa [Carbidopa-Levodopa 25-250 Tab] 1 each PO QID 08/16/18 Apixaban [Eliquis -] 2.5 mg PO BID #60 tablet 08/18/18 Metoprolol Succinate [Toprol XL -] 25 mg PO DAILY #30 tab.sr.24h 08/18/18 Nitrofurantoin Monohyd/M-Cryst [Nitrofurantoin Sierra-Mcr 100 mg] 100 mg PO BID # 10 capsule MDD 2 10/14/18 Pramipexole Dihydrochloride [Mirapex -] 0.25 mg PO HS #30 tablet MDD 1 10/14/18 Review of Systems - Review of Systems Constitutional: No: Chills, Fever HEENTM: No: Blurred Vision Cardiac (ROS): No: Chest Pain, Palpitations ABD/GI: No: Nausea, Vomiting Musculoskeletal: No: Back Pain, Joint Pain, Joint Swelling, Neck Pain <Noah Cox - Last Filed: 10/12/18 15:58> *Physical Exam - Vital Signs Last Vital Signs Temp Pulse Resp BP Pulse Ox 97.5 F L 67 18 141/70 97 10/12/18 14:29 10/12/18 14:29 10/12/18 14:29 10/12/18 14:29 10/12/18 14:29 - Physical Exam General Appearance: Yes: Appropriately Dressed. No: Apparent Distress HEENT: positive: Normal Voice, Other (old healing ecchymosis to L face, forehead ) Respiratory/Chest: positive: Lungs Clear, Normal Breath Sounds. negative: Respiratory Distress Cardiovascular: positive: Regular Rate, S1, S2 Gastrointestinal/Abdominal: positive: Soft. negative: Tender Musculoskeletal: positive: Normal Inspection. negative: Vertebral Tenderness Extremity: positive: Normal Inspection, Normal Range of Motion, Tender. negative: Swelling Integumentary: positive: Dry, Warm Neurologic: positive: Alert, Normal Mood/Affect <Noah Cox - Last Filed: 10/12/18 15:58> - Vital Signs Last Vital Signs Temp Pulse Resp BP Pulse Ox 98.0 F 93 H 22 H 132/81 96 10/14/18 13:58 10/14/18 13:58 10/14/18 10:00 10/14/18 13:58 10/14/18 09:00 <Corinne Roque - Last Filed: 10/16/18 16:23> Moderate Sedation - Procedure Monitoring Vital Signs: Procedure Monitoring Vital Signs Temperature 97.5 F L 10/12/18 14:29 Pulse Rate 67 10/12/18 14:29 Respiratory Rate 18 10/12/18 14:29 Blood Pressure 141/70 10/12/18 14:29 O2 Sat by Pulse Oximetry (%) 97 10/12/18 14:29 <Noah Cox - Last Filed: 10/12/18 15:58> - Procedure Monitoring Vital Signs: Procedure Monitoring Vital Signs Temperature 98.0 F 10/14/18 13:58 Pulse Rate 93 H 10/14/18 13:58 Respiratory Rate 22 H 10/14/18 10:00 Blood Pressure 132/81 10/14/18 13:58 O2 Sat by Pulse Oximetry (%) 96 10/14/18 09:00 <Corinne Roque - Last Filed: 10/16/18 16:23> ED Treatment Course - LABORATORY CBC & Chemistry Diagram: 10/13/18 05:30 10/13/18 05:30 - ADDITIONAL ORDERS Additional order review: 10/12/18 15:43 RBC 3.14 L MCV 97.0 H MCHC 34.4 RDW 13.1 MPV 8.1 Neutrophils % 65.8 Lymphocytes % 20.4 D Monocytes % 10.7 H Eosinophils % 2.0 Basophils % 1.1 - Medications Given in the ED: ED Medications Discontinued Medications Generic Name Dose Route Start Last Admin Trade Name Freq PRN Reason Stop Dose Admin Acetaminophen 650 mg 10/12/18 21:10 10/13/18 14:04 Tylenol - PO 650 mg Q6H PRN Administration PAIN OR FEVER Apixaban 2.5 mg 10/12/18 22:00 10/14/18 08:59 Eliquis - PO 2.5 mg BID DUSTY Administration Atorvastatin Calcium 10 mg 10/12/18 22:00 10/13/18 21:23 Lipitor - PO 10 mg HS DUSTY Administration Calcium Carbonate/Cholecalciferol 2 tab 10/13/18 10:00 10/14/18 08:59 Os-Oliver 500+D - PO 2 tab DAILY DUSTY Administration Carbidopa/Levodopa 1 each 10/13/18 06:00 10/14/18 13:08 Sinemet 25/250 - PO 1 each 0600,1000,1400,1800 DUSTY Administration Ferrous Sulfate 325 mg 10/13/18 08:00 10/14/18 08:59 Feosol - PO 325 mg DAILY@0800 DUSTY Administration Glipizide 5 mg 10/12/18 22:00 10/14/18 06:05 Glucotrol Xl - PO 5 mg BIDAC DUSTY Administration Sodium Chloride 500 mls @ 500 mls/hr 10/12/18 15:29 10/12/18 15:45 Normal Saline - IV 10/12/18 16:28 500 mls/hr ASDIR STA Administration Magnesium Chloride 64 mg 10/13/18 10:00 10/14/18 09:00 Slow-Mag - PO 64 mg DAILY DUSTY Administration Metoprolol Succinate 25 mg 10/13/18 10:00 10/14/18 09:00 Toprol Xl - PO 25 mg DAILY DUSTY Administration Pantoprazole Sodium 20 mg 10/13/18 10:00 10/14/18 08:59 Protonix - PO 20 mg DAILY DUSTY Administration Pramipexole Dihydrochloride 0.25 mg 10/12/18 22:00 10/13/18 21:23 Mirapex - PO 0.25 mg HS DUSTY Administration Quetiapine Fumarate 12.5 mg 10/12/18 22:00 10/13/18 21:23 Seroquel - PO 12.5 mg HS DUSTY Administration Sitagliptin Phosphate 50 mg 10/13/18 07:00 10/14/18 06:05 Januvia - PO 50 mg DAILY@0700 DUSTY Administration <Corinne Roque - Last Filed: 10/16/18 16:23> Medical Decision Making - Medical Decision Making 10/12/18 15:06 78-year-old female, A.fib on Eliquis, DM, HTN, HLD UTIs, Parkinson's dementia, frequent falls, here w/ head injury in setting of fall. Pt states she was vacuuming this am and next thing she remembers is waking up on ground and not sure how she got there. Episode unwitnessed. No chest pain or dizziness prior to fall. Denies headache, visual changes, nausea, vomiting or focal weakness at this time. Denies neck/back/extremity pain and able to ambulate since fall see exam Syncope Stable w/ unremarkable exam -CTH -EKG -labs -admit 10/12/18 15:58 <[place]ah - Last Filed: 10/12/18 15:58> *DC/Admit/Observation/Transfer - Discharge Dispostion Decision to Admit order: Yes <[place] - Last Filed: 10/12/18 15:58> - Attestations Physician Attestion: I reviewed the case with the mid-level practitioner and agree with the mid- level practitioner's assessment, diagnosis and disposition. <Corinne Roque - Last Filed: 10/16/18 16:23> Diagnosis at time of Disposition: Head injury Qualifiers: Encounter type: initial encounter Qualified Code(s): S09.90XA - Unspecified injury of head, initial encounter Syncope Qualifiers: Syncope type: unspecified Qualified Code(s): R55 - Syncope and collapse - Discharge Dispostion Disposition: HOME Condition at time of disposition: Fair
[2018-10-12] MEDS ORDERED: SODIUM CHLORIDE 500 ML IV STA (15:29)
[2018-10-12 16:06] LABS: BASO % 1.1 % (0-2.0); HEMATOCRIT 30.4 % (32.4-45.2); HEMOGLOBIN 10.4 GM/dL (10.7-15.3); LYMPH % 20.4 % (8-40); MCH 33.3 pg (25.7-33.7); MCHC 34.4 g/dl (32.0-36.0); MEAN PLT VOLUME 8.1 fl (7.5-11.1); MONO % 10.7 % (3.8-10.2); NEUT % 65.8 % (42.8-82.8); PLATELET COUNT 168 K/MM3 (134-434); RBC 3.14 M/mm3 (3.60-5.2); RDW 13.1 % (11.6-15.6); WHITE BLOOD COUNT 4.6 K/mm3 (4.0-10.0)
[2018-10-12 16:29] LABS: ALBUMIN 3.1 g/dl (3.4-5.0); ALK PHOS 83 U/L (45-117); ANION GAP 6 MMOL/L (8-16); BILIRUBIN,TOTAL 0.7 mg/dL (0.2-1); BLOOD UREA NITROGEN 24 mg/dL (7-18); CALCIUM 8.5 mg/dL (8.5-10.1); CHLORIDE 107 mmol/L (98-107); CO2 24 mmol/L (21-32); CREATININE 1.4 mg/dL (0.55-1.3); GLUCOSE,RANDOM 183 mg/dL (74-106); POTASSIUM 4.6 mmol/L (3.5-5.1); SGOT/AST 13 U/L (15-37); SGPT/ALT < 6 U/L (13-61); SODIUM 137 mmol/L (136-145); TOT PROT 6.2 g/dl (6.4-8.2)
[2018-10-12 16:53] LABS: INR 1.28 (0.83-1.09); PROTHROMBIN TIME (PATIENT) 15.2 SEC (9.7-13.0)
[2018-10-12 17:38] LABS: URINE APPEARANCE CLOUDY; URINE BILIRUBIN NEGATIVE (<2.0 mg/dL); URINE COLOR LTYELLOW; URINE GLUCOSE (UA) NEGATIVE (NEGATIVE); URINE KETONE NEGATIVE (NEGATIVE); URINE LEUK ESTERASE 3+ (NEGATIVE); URINE NITRITE POSITIVE (NEGATIVE); URINE PROTEIN NEGATIVE (NEGATIVE); URINE UROBILINOGEN NEGATIVE mg/dL (0.2-1.0)
[2018-10-12 17:46] LABS: EPI CELLS RARE /HPF (FEW); URINE BACTERIA RARE /hpf (NONE SEEN); URINE MUCUS RARE
[2018-10-12 18:28] VITALS: BMI 27.0
--- NOTE | 2018-10-12 20:25 | CONSULT ---
Consult - text type - Consultation Consultation Note: NEUROLOGY CONSULTATION is greatly appreciated: This 88 yo RH woman lives alone. PMH sig for: DM, anemia; ASHD; AFib; GERD Maintained on: Eliquis; Feosol; Simvastatin; Glipizide; Sitagliptin; Omeprazole ; Pramipexole (0.25/0.50); Benzonatate; Sinemet 25/250 QID; and Metoprolol Well-known to me over many years with Parkinson's disease more recently complicated by RLS and, since [place], visual hallucinations and delusions ( particularly that there are strangers in her home). Admitted today after a fall vacuuming with left facial trauma. Unsure if possible, brief LOC. Pt. denies TAFOYA, Nausea, dizziness, etc. CT of head (reviewed): Mild, diffuse atrophy and diffuse microvascular changes but no traumatic changes. Labs sig for 132 Urinary WBC; 1 RBC MIROSLAVA: Left orbital and left forehead ecchymoses without sig swelling or tenderness. No bruits. Cor irreg. BP 112/58 Neuro: Awake, alert. Ox 3. Sl scanning dysarthric speech CN II-XII sig for rhythmic jaw tremor. Left Ptosis without fatigue. Full COSMO's. Decreased tongue COSMO's. gag OK Motor: Intermittent tremor. Minimal cogwheeling. Intermittent dystonic posturing of right hand and foot. Normal strength. Absent AJ's. Toes downgoing. Coord: No FTN dystaxia Sensory: Decreased vibration in both feet to the knees. Gait: Flexed, shuffling, festinating, retropulsive. IMP: 1. Parkinson's disease. 2. Parkinson's disease Psychosis 3. RLS 4. Diabetic peripheral neuropathy 5. Toxic-metabolic encephalopathy due to infection (UTI). SUGGEST: Continue Sinemet 25/250 QID @ 6, 10, 2, and 6 Decrease pramipexole to 0.25 q HS Please Rx for UTI Quetiapine 12.5 mg PO q HS Expedite neuro office f/u to initiate Pimavanserin (Nuplazid) Rx. 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 Thank you very much, Saravanan Hooker MD
--- NOTE | 2018-10-12 20:33 | HP ---
Admitting History and Physical - Primary Care Physician PCP: Kurtis Yeh - Admission Chief Complaint: S/p Fall History of Present Illness: Patient is an 88 y/o female with past medical history of A-fib on Eliquis, TIA, HLD, CAD, NIDDM, anemia, and Parkinson's disease. Patient presented to [facility] ER after possible falling today. Patient states she was vacuuming when she landed on the floor. Patient does not know how she fell but denies LOC or dizziness prior to falling. Head CT scan performed and shows no significant interval change or acute intracranial pathology. Troponin neg x 1. 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: TIA, Parkinson's Cardiovascular: Yes: AFIB, CAD, HTN, Hyperlipdemia Gastrointestinal: Yes: GERD Renal/: Yes: Renal Inusuff Heme/Onc: Yes: Anemia, B12 Deficiency Musculoskeletal: Yes: Osteoarthritis Endocrine: Yes: Diabetes Mellitus - Past Surgical History Past Surgical History: Yes: Cataract Removal, Hernia Repair - Smoking History Smoking history: Never smoked Have you smoked in the past 12 months: No - Alcohol/Substance Use Hx Alcohol Use: No - Social History Usual Living Arrangement: Yes: Other (lives with grandson) ADL: Independent History of Recent Travel: No Home Medications - Allergies Allergies/Adverse Reactions: Allergies Allergy/AdvReac Type Severity Reaction Status Date / Time naproxen [From Naprosyn] AdvReac Intermediate Verified 10/12/18 14:29 - Home Medications Home Medications: Ambulatory Orders Ferrous Sulfate [Feosol] 325 mg PO DAILY 03/30/14 Simvastatin [Zocor -] 20 mg PO HS 04/16/14 Oliver/D3/Mag11/Zinc/Manager French/Jonny/Bor [Caltrate 600+D Plus Tablet] 2 each PO DAILY Glipizide [Glipizide Xl] 5 mg PO BID 09/10/14 Magnesium Chloride [Slow-Mag -] 64 mg PO DAILY 09/10/14 Sitagliptin Phosphate [Januvia] 50 mg PO DAILY 04/13/17 Omeprazole 20 mg PO DAILY 02/28/18 Pramipexole Dihydrochloride [Mirapex -] 0.25 mg PO AM 02/28/18 Pramipexole Dihydrochloride [Mirapex -] 0.5 mg PO HS 02/28/18 Benzonatate 200 mg PO TID 08/16/18 Carbidopa/Levodopa [Carbidopa-Levodopa 25-250 Tab] 1 each PO QID 08/16/18 Apixaban [Eliquis -] 2.5 mg PO BID #60 tablet 08/18/18 Metoprolol Succinate [Toprol XL -] 25 mg PO DAILY #30 tab.sr.24h 08/18/18 Review of Systems - Review of Systems Constitutional: reports: No Symptoms Eyes: reports: No Symptoms HENT: reports: No Symptoms Neck: reports: No Symptoms Cardiovascular: reports: No Symptoms Respiratory: reports: No Symptoms Gastrointestinal: reports: No Symptoms Genitourinary: reports: No Symptoms Breasts: reports: No Symptoms Reported Musculoskeletal: reports: No Symptoms Integumentary: reports: No Symptoms Neurological: reports: No Symptoms Endocrine: reports: No Symptoms Hematology/Lymphatic: reports: No Symptoms Psychiatric: reports: No Symptoms Physical Examination Vital Signs: Vital Signs Temperature 97.8 F 10/12/18 20:07 Pulse Rate 70 10/12/18 20:07 Respiratory Rate 20 10/12/18 20:07 Blood Pressure 143/84 10/12/18 20:07 O2 Sat by Pulse Oximetry (%) 96 10/12/18 20:07 Constitutional: Yes: Well Nourished, No Distress, Calm HENT: Yes: Other (Hematoma mid occipital area healing ecchymosis to L side of face) Neck: Yes: Supple Cardiovascular: Yes: Regular Rate and Rhythm Respiratory: Yes: Regular, CTA Bilaterally Gastrointestinal: Yes: Normal Bowel Sounds, Soft Musculoskeletal: Yes: Muscle Weakness Extremities: Yes: WNL Edema: No Neurological: Yes: Alert, Oriented Psychiatric: Yes: Alert, Oriented Labs: CBC, BMP 10/12/18 15:43 10/12/18 15:43 Imaging - Results Cat Scan: Report Reviewed Problem List - Problems (1) Syncopal episodes Assessment/Plan: -tele monitoring -cardiology consult -carotid US ordered -Brain MRI Code(s): R55 - SYNCOPE AND COLLAPSE Qualifiers: Syncope type: unspecified Qualified Code(s): R55 - Syncope and collapse (2) Anemia Assessment/Plan: -monitor cbc -continue feosol Code(s): D64.9 - ANEMIA, UNSPECIFIED (3) CKD (chronic kidney disease) Assessment/Plan: -BUN/Cr 16/09.4 -will monitor renal function -will consult renal if upward trend noted Code(s): N18.9 - CHRONIC KIDNEY DISEASE, UNSPECIFIED (4) Diabetes mellitus Code(s): E11.9 - TYPE 2 DIABETES MELLITUS WITHOUT COMPLICATIONS Qualifiers: Diabetes mellitus type: type 2 (5) Fall Assessment/Plan: -fall precaution -neuro checks Code(s): W19.XXXA - UNSPECIFIED FALL, INITIAL ENCOUNTER Qualifiers: Encounter type: initial encounter Qualified Code(s): W19.XXXA - Unspecified fall, initial encounter (6) Hyperlipidemia Code(s): E78.5 - HYPERLIPIDEMIA, UNSPECIFIED Qualifiers: Hyperlipidemia type: pure hypercholesterolemia Qualified Code(s): E78.00 - Pure hypercholesterolemia, unspecified; E78.0 - Pure hypercholesterolemia (7) Parkinson disease Assessment/Plan: -neurology consult -continue sinemet and mirapax Code(s): G20 - PARKINSON'S DISEASE (8) Paroxysmal A-fib Assessment/Plan: -tele monitoring -cont a-fib Code(s): I48.0 - PAROXYSMAL ATRIAL FIBRILLATION
[2018-10-12] MEDS ORDERED: ACETAMINOPHEN 325 MG TABLET (FP) PO PRN (21:10)
[2018-10-12] MEDS: glipiZIDE-XL 5 MG TAB.ER.24 PO SCH (21:49)
[2018-10-12] MEDS: QUEtiapine FUMARATE 25 MG TABLET (FP) PO SCH (21:49)
[2018-10-12] MEDS: ATORVASTATIN CA 10 MG TABLET (FP) PO SCH (21:49)
[2018-10-12] MEDS: APIXABAN 2.5 MG TABLET PO SCH (21:49)
[2018-10-12] MEDS: PRAMIPEXOLE DIHYDROCHLORIDE 0.25 MG TABLET PO SCH (21:50)
[2018-10-12] MEDS ORDERED: PRAMIPEXOLE DIHYDROCHLORIDE 0.5 MG TABLET PO SCH (22:00)
[2018-10-12] MEDS ORDERED: CARBIDOPA/LEVODOPA 25/250 TABLET (FP) PO SCH (22:00)
[2018-10-13] MEDS: glipiZIDE-XL 5 MG TAB.ER.24 PO SCH ×2 (06:27→17:08)
[2018-10-13] MEDS: sitaGLIPtin PHOSPHATE 50 MG TABLET PO SCH (06:27)
[2018-10-13] MEDS: CARBIDOPA/LEVODOPA 25/250 TABLET (FP) PO SCH ×4 (06:49→18:09)
[2018-10-13 07:18] LABS: HEMATOCRIT 28.8 % (32.4-45.2); HEMOGLOBIN 9.9 GM/dL (10.7-15.3); MCHC 34.4 g/dl (32.0-36.0); MEAN CELL VOLUME 95.8 fl (80-96); MEAN PLT VOLUME 8.3 fl (7.5-11.1); PLATELET COUNT 170 K/MM3 (134-434); RBC 3.01 M/mm3 (3.60-5.2); RDW 12.9 % (11.6-15.6); WHITE BLOOD COUNT 3.4 K/mm3 (4.0-10.0)
[2018-10-13 08:00] LABS: ALBUMIN 2.7 g/dl (3.4-5.0); ALK PHOS 64 U/L (45-117); ANION GAP 6 MMOL/L (8-16); BILIRUBIN,TOTAL 0.7 mg/dL (0.2-1); BLOOD UREA NITROGEN 17 mg/dL (7-18); CALCIUM 8.2 mg/dL (8.5-10.1); CHLORIDE 112 mmol/L (98-107); CHOLESTEROL 109 mg/dL (50-200); CO2 25 mmol/L (21-32); CREATININE 1.2 mg/dL (0.55-1.3); GLUCOSE,RANDOM 70 mg/dL (74-106); HDL CHOLESTEROL 53 mg/dL (40-60); POTASSIUM 4.4 mmol/L (3.5-5.1); SGOT/AST 13 U/L (15-37); SGPT/ALT 11 U/L (13-61); SODIUM 142 mmol/L (136-145); TOT PROT 5.6 g/dl (6.4-8.2); TRIGLYCERIDES 96 mg/dL (0-150)
[2018-10-13] MEDS: FERROUS SO4 325 MG TABLET (FP) PO SCH (08:17)
[2018-10-13] MEDS ORDERED: PT OWN MED DRAWER 7, Y5N ONE (09:20)
[2018-10-13] MEDS: APIXABAN 2.5 MG TABLET PO SCH ×2 (09:29→21:23)
[2018-10-13] MEDS: CALCIUM 500MG/VIT-D 200 UNITS COMBO TABLET (FP) PO SCH (09:29)
[2018-10-13] MEDS: PANTOPRAZOLE 20 MG TABLET (FP) PO SCH (09:30)
[2018-10-13] MEDS: MAGNESIUM CL 64 MG TABLET.SA PO SCH (09:30)
[2018-10-13] MEDS: metoPROLOL SUCCINATE 25 MG TAB.SR.24H (FP) PO SCH (09:30)
[2018-10-13] MEDS ORDERED: PRAMIPEXOLE DIHYDROCHLORIDE 0.25 MG TABLET PO SCH (10:00)
[2018-10-13] MEDS ORDERED: BENZONATATE 200 MG PO SCH (10:00)
[2018-10-13 11:05] LABS: URINE APPEARANCE TURBID; URINE BILIRUBIN NEGATIVE (<2.0 mg/dL); URINE COLOR YELLOW; URINE GLUCOSE (UA) NEGATIVE (NEGATIVE); URINE KETONE NEGATIVE (NEGATIVE); URINE LEUK ESTERASE 3+ (NEGATIVE); URINE NITRITE POSITIVE (NEGATIVE); URINE PROTEIN NEGATIVE (NEGATIVE); URINE UROBILINOGEN NEGATIVE mg/dL (0.2-1.0)
[2018-10-13 11:16] LABS: URINE BACTERIA RARE /hpf (NONE SEEN); URINE MUCUS RARE
--- NOTE | 2018-10-13 13:56 | CON.CARD ---
Consult Consult Specialty:: Cardiology Referred by:: Kurtis Yeh Reason for Consultation:: Afib - History of Present Illness Chief Complaint: fall History of Present Illness: 88 year old female with a pmhx of paroxysmal afib on apixaban (followed by Dr. Torres at [facility]), hld, TIA, CAD, DM, and parkinson's disease presenting after a fall. She was vacuuming and fell on the floor. Says she did not pass out and remembers the event and falling and hitting her head. Not sure why she fell if she tripped or why. Similar fall last week without LOC. No chest pain, palpitations, or sob. No pnd, orthopnea, or edema. CT head no acute m/s/b Carotid Dopplers with no significant stenosis. 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: TIA, Parkinson's Cardio/Vascular: Yes: AFIB, CAD, HTN, Hyperlipdemia Gastrointestinal: Yes: GERD Renal/: Yes: Renal Inusuff Musculoskeletal: Yes: Osteoarthritis Endocrine: Yes: Diabetes Mellitus - Past Surgical History Past Surgical History: Yes: Cataract Removal, Hernia Repair - Alcohol/Substance Use Hx Alcohol Use: No - Smoking History Smoking history: Never smoked Have you smoked in the past 12 months: No - Social History ADL: Independent History of Recent Travel: No Home Medications - Allergies Allergies/Adverse Reactions: Allergies Allergy/AdvReac Type Severity Reaction Status Date / Time naproxen [From Naprosyn] AdvReac Intermediate Verified 10/12/18 14:29 - Home Medications Home Medications: Ambulatory Orders Ferrous Sulfate [Feosol] 325 mg PO DAILY 03/30/14 Simvastatin [Zocor -] 20 mg PO HS 04/16/14 Oliver/D3/Mag11/Zinc/Supervisor Landscape/Jonny/Bor [Caltrate 600+D Plus Tablet] 2 each PO DAILY Glipizide [Glipizide Xl] 5 mg PO BID 09/10/14 Magnesium Chloride [Slow-Mag -] 64 mg PO DAILY 09/10/14 Sitagliptin Phosphate [Januvia] 50 mg PO DAILY 04/13/17 Omeprazole 20 mg PO DAILY 02/28/18 Pramipexole Dihydrochloride [Mirapex -] 0.25 mg PO AM 02/28/18 Pramipexole Dihydrochloride [Mirapex -] 0.5 mg PO HS 02/28/18 Benzonatate 200 mg PO TID 08/16/18 Carbidopa/Levodopa [Carbidopa-Levodopa 25-250 Tab] 1 each PO QID 08/16/18 Apixaban [Eliquis -] 2.5 mg PO BID #60 tablet 08/18/18 Metoprolol Succinate [Toprol XL -] 25 mg PO DAILY #30 tab.sr.24h 08/18/18 Vital Signs: Vital Signs Temperature 97.8 F 10/13/18 09:00 Pulse Rate 90 10/13/18 09:00 Respiratory Rate 18 10/13/18 09:00 Blood Pressure 87/50 L 10/13/18 09:00 O2 Sat by Pulse Oximetry (%) 96 10/12/18 21:00 Constitutional: Yes: No Distress Neck: Yes: Supple Respiratory: Yes: CTA Bilaterally Gastrointestinal: Yes: Soft Cardiovascular: Yes: Regular Rate and Rhythm JVD: No Carotid Bruit: No PMI: Non-Displaced Heart Sounds: Yes: S1, S2 Murmur: No: Systolic Murmur Edema: No - Other Data Labs, Other Data: CBC, BMP 10/13/18 05:30 10/13/18 05:30 INR, PTT INR 1.28 (0.83-1.09) H 10/12/18 15:50 Troponin, BNP 10/12/18 10/12/18 10/13/18 15:43 15:43 05:30 Troponin I < 0.02 0.02 B-Natriuretic Peptide 872.9 H Troponin, BNP 10/12/18 10/12/18 10/13/18 15:43 15:43 05:30 Troponin I < 0.02 0.02 B-Natriuretic Peptide 872.9 H Imaging - Results Chest X-ray: Report Reviewed Problem List - Problems (1) Head injury Code(s): S09.90XA - UNSPECIFIED INJURY OF HEAD, INITIAL ENCOUNTER Qualifiers: Encounter type: initial encounter Qualified Code(s): S09.90XA - Unspecified injury of head, initial encounter (2) Paroxysmal A-fib Code(s): I48.0 - PAROXYSMAL ATRIAL FIBRILLATION Assessment/Plan 88 year old female with a pmhx of paroxysmal afib on apixaban (followed by Dr. Torres at [facility]), hld, TIA, CAD, DM, and parkinson's disease presenting after a fall. 1) Fall -patient denies any LOC. Does not sound like syncope but unclear reason for fall. CT head no acute m/s/b Carotid Dopplers with no significant stenosis. -BP on lower side would hold low dose metoprolol 25mg -Monitor for orthostatics Tele has been sinus with no events. -Encourage hydration as Cr was mildly up on presentation. -No significant murmur on exam. No cardiac complaints. No further cardiac testing at this time. Would get records/imaging from Dr. Torres's office. Patient should follow up with Dr. Torres. Can consider event monitor as outpatient. (Patient reports that she has a loop recorder but that she was told the battery ) Please call back with any questions
--- NOTE | 2018-10-13 14:42 | PN ---
Progress Note, Physician - Current Medication List Current Medications: Active Medications Acetaminophen (Tylenol -) 650 mg PO Q6H PRN PRN Reason: PAIN OR FEVER Last Admin: 10/13/18 14:04 Dose: 650 mg Apixaban (Eliquis -) 2.5 mg PO BID [facility] Last Admin: 10/13/18 09:29 Dose: 2.5 mg Atorvastatin Calcium (Lipitor -) 10 mg PO HS [facility] Last Admin: 10/12/18 21:49 Dose: 10 mg Calcium Carbonate/Cholecalciferol (Os-Oliver 500+D -) 2 tab PO DAILY [facility] Last Admin: 10/13/18 09:29 Dose: 2 tab Carbidopa/Levodopa (Sinemet 25/250 -) 1 each PO 0600,1000,1400,1800 [facility] Last Admin: 10/13/18 13:58 Dose: 1 each Ferrous Sulfate (Feosol -) 325 mg PO DAILY@0800 [facility] Last Admin: 10/13/18 08:17 Dose: 325 mg Glipizide (Glucotrol Xl -) 5 mg PO BIDAC [facility] Last Admin: 10/13/18 06:27 Dose: 5 mg Magnesium Chloride (Slow-Mag -) 64 mg PO DAILY [facility] Last Admin: 10/13/18 09:30 Dose: 64 mg Metoprolol Succinate (Toprol Xl -) 25 mg PO DAILY [facility] Last Admin: 10/13/18 09:30 Dose: Not Given Nf (Benzonatate 200 Mg Tab)Non Formulary Med 1 each PO TID [facility] Pantoprazole Sodium (Protonix -) 20 mg PO DAILY [facility] Last Admin: 10/13/18 09:30 Dose: 20 mg Pramipexole Dihydrochloride (Mirapex -) 0.[address] [facility] Last Admin: 10/12/18 21:50 Dose: 0.25 mg Quetiapine Fumarate (Seroquel -) 12.5 [address] [facility] Last Admin: 10/12/18 21:49 Dose: 12.5 mg Sitagliptin Phosphate (Januvia -) 50 mg PO DAILY@0700 [facility] Last Admin: 10/13/18 06:27 Dose: 50 mg - Objective Vital Signs: Vital Signs Temperature 97.8 F 10/13/18 09:00 Pulse Rate 90 10/13/18 09:00 Respiratory Rate 18 10/13/18 09:00 Blood Pressure 87/50 L 10/13/18 09:00 O2 Sat by Pulse Oximetry (%) 99 10/13/18 14:07 Cardiovascular: Yes: Regular Rate and Rhythm Respiratory: Yes: Regular, CTA Bilaterally Gastrointestinal: Yes: Normal Bowel Sounds, Soft. No: Tenderness Neurological: Yes: Alert, Oriented Labs: CBC, BMP 10/13/18 05:30 10/13/18 05:30 INR, PTT INR 1.28 (0.83-1.09) H 10/12/18 15:50 Assessment/Plan - Problems (1) Syncopal episodes Assessment/Plan: -tele monitoring -cardiology consult -carotid US ordered -Brain MRI Code(s): R55 - SYNCOPE AND COLLAPSE Qualifiers: Syncope type: unspecified Qualified Code(s): R55 - Syncope and collapse (2) Anemia Assessment/Plan: -monitor cbc -continue feosol Code(s): D64.9 - ANEMIA, UNSPECIFIED (3) CKD (chronic kidney disease) Assessment/Plan: -BUN/Cr 24/1.4 -will monitor renal function -will consult renal if upward trend noted Code(s): N18.9 - CHRONIC KIDNEY DISEASE, UNSPECIFIED (4) Diabetes mellitus Code(s): E11.9 - TYPE 2 DIABETES MELLITUS WITHOUT COMPLICATIONS Qualifiers: Diabetes mellitus type: type 2 (5) Fall Assessment/Plan: -fall precaution -neuro checks Code(s): W19.XXXA - UNSPECIFIED FALL, INITIAL ENCOUNTER Qualifiers: Encounter type: initial encounter Qualified Code(s): W19.XXXA - Unspecified fall, initial encounter (6) Hyperlipidemia Code(s): E78.5 - HYPERLIPIDEMIA, UNSPECIFIED Qualifiers: Hyperlipidemia type: pure hypercholesterolemia Qualified Code(s): E78.00 - Pure hypercholesterolemia, unspecified; E78.0 - Pure hypercholesterolemia (7) Parkinson disease Assessment/Plan: -neurology consult -continue sinemet and mirapax Code(s): G20 - PARKINSON'S DISEASE (8) Paroxysmal A-fib Assessment/Plan: -tele monitoring -cont a-fib Code(s): I48.0 - PAROXYSMAL ATRIAL FIBRILLATION
[2018-10-13] MEDS: PRAMIPEXOLE DIHYDROCHLORIDE 0.25 MG TABLET PO SCH (21:23)
[2018-10-13] MEDS: QUEtiapine FUMARATE 25 MG TABLET (FP) PO SCH (21:23)
[2018-10-13] MEDS: ATORVASTATIN CA 10 MG TABLET (FP) PO SCH (21:23)
--- NOTE | 2018-10-14 02:41 | EKG ---
Test Reason : Blood Pressure : / mmHG Vent. Rate : 068 BPM Atrial Rate : 068 BPM P-R Int : 226 ms QRS Dur : 118 ms QT Int : 438 ms P-R-T Axes : 065 -58 -29 degrees QTc Int : 465 ms SINUS RHYTHM WITH MARKED SINUS ARRHYTHMIA WITH 1ST DEGREE A-V BLOCK INCOMPLETE RIGHT BUNDLE BRANCH BLOCK LEFT ANTERIOR FASCICULAR BLOCK NONSPECIFIC T WAVE ABNORMALITY ABNORMAL ECG WHEN COMPARED WITH ECG OF 03-SEP-2018 00:43, NO SIGNIFICANT CHANGE WAS FOUND Confirmed by YAMILE MURRAY MD ([id number]) on 10/14/2018 2:40:39 AM Referred By: Confirmed By:YAMILE MURRAY MD
[2018-10-14] MEDS: CARBIDOPA/LEVODOPA 25/250 TABLET (FP) PO SCH ×3 (05:58→13:08)
[2018-10-14] MEDS: glipiZIDE-XL 5 MG TAB.ER.24 PO SCH (06:05)
[2018-10-14] MEDS: sitaGLIPtin PHOSPHATE 50 MG TABLET PO SCH (06:05)
[2018-10-14] MEDS: CALCIUM 500MG/VIT-D 200 UNITS COMBO TABLET (FP) PO SCH (08:59)
[2018-10-14] MEDS: PANTOPRAZOLE 20 MG TABLET (FP) PO SCH (08:59)
[2018-10-14] MEDS: FERROUS SO4 325 MG TABLET (FP) PO SCH (08:59)
[2018-10-14] MEDS: APIXABAN 2.5 MG TABLET PO SCH (08:59)
[2018-10-14] MEDS: metoPROLOL SUCCINATE 25 MG TAB.SR.24H (FP) PO SCH (09:00)
[2018-10-14] MEDS: MAGNESIUM CL 64 MG TABLET.SA PO SCH (09:00)
--- NOTE | 2018-10-14 12:41 | DS ---
Physical Examination Vital Signs: Vital Signs Temperature 98.2 F 10/14/18 10:00 Pulse Rate 87 10/14/18 10:00 Respiratory Rate 22 H 10/14/18 10:00 Blood Pressure 139/80 10/14/18 10:00 O2 Sat by Pulse Oximetry (%) 96 10/14/18 09:00 Constitutional: Yes: Calm Cardiovascular: Yes: Regular Rate and Rhythm, S1, S2 Respiratory: Yes: CTA Bilaterally Gastrointestinal: Yes: Normal Bowel Sounds, Soft Neurological: Yes: Alert Labs: CBC, BMP 10/13/18 05:30 10/13/18 05:30 Discharge Summary Reason For Visit: SYNCOPE Current Active Problems Head injury (Acute) Syncopal episodes (Acute) Other Procedures: ct heAD NEGQTIVE. no stenosis Hospital Course: Patient is an 88 y/o female with past medical history of A-fib on Eliquis, TIA, HLD, CAD, NIDDM, anemia, and Parkinson's disease. Patient presented to [facility] ER after possible falling today. Patient states she was vacuuming when she landed on the floor. Patient does not know how she fell but denies LOC or dizziness prior to falling. Head CT scan performed and shows no significant interval change or acute intracranial pathology. Troponin neg x 1. patient seen and cardioloogy and neurology on mirapex and seroquel Condition: Fair - Instructions Referrals: Kurtis Yeh MD [Primary Care Provider] - Disposition: HOME - Home Medications Comprehensive Discharge Medication List: Ambulatory Orders Ferrous Sulfate [Feosol] 325 mg PO DAILY 03/30/14 Simvastatin [Zocor -] 20 mg PO HS 04/16/14 Oliver/D3/Mag11/Zinc/Director Pharmacovigilance/Jonny/Bor [Caltrate 600+D Plus Tablet] 2 each PO DAILY Glipizide [Glipizide Xl] 5 mg PO BID 09/10/14 Magnesium Chloride [Slow-Mag -] 64 mg PO DAILY 09/10/14 Sitagliptin Phosphate [Januvia] 50 mg PO DAILY 04/13/17 Omeprazole 20 mg PO DAILY 02/28/18 Pramipexole Dihydrochloride [Mirapex -] 0.25 mg PO AM 02/28/18 Pramipexole Dihydrochloride [Mirapex -] 0.5 mg PO HS 07/08/18 Benzonatate 200 mg PO TID 08/16/18 Carbidopa/Levodopa [Carbidopa-Levodopa 25-250 Tab] 1 each PO QID 08/16/18 Apixaban [Eliquis -] 2.5 mg PO BID #60 tablet 08/18/18 Metoprolol Succinate [Toprol XL -] 25 mg PO DAILY #30 tab.sr.24h 08/18/18
[2018-10-14] MEDS ORDERED: PT OWN MED DRAWER 7, Y5N ONE (13:07)
[2018-10-14 13:58] VITALS: TEMP 98
[2018-10-14 14:00] VITALS: BP 132/81; PULSE 93
--- NOTE | 2018-10-14 17:18 | CONS ---
DATE OF CONSULTATION: 10/14/2018 HISTORY OF PRESENT ILLNESS: The patient is an 88-year-old woman with past medical history of atrial fibrillation, on Eliquis, Parkinson disease, who was admitted following a fall and possible syncopal episode. The patient underwent blood work which showed negative troponin. CT of the head on October 12 demonstrated no significant change when compared to September 03, with no acute infarct, moderate periventricular chronic microvascular ischemic disease, and moderate volume loss. Carotid Doppler study was done, which showed moderate atelectasis without evidence of hemodynamically significant stenosis. MRI of the brain demonstrated multiple chronic infarcts, including left medial nucleus of the thalamus and left choe radiata, and moderate diffuse white matter microvascular ischemic. Blood work on admission: WBC is 4.6, hemoglobin 10.4, platelet count 168. Repeat on October 13: WBC is 3.4, hemoglobin 9.9, platelet count 170. INR on admission slightly elevated at 1.28. Chemistry on admission showed elevated BUN 24, creatinine 1.4, a low albumin of 3.1. Normal sodium, 137, potassium 4.6, chloride 107, CO2 24. Repeat chemistry on October 13 showed sodium 142, potassium 4.4, chloride 112, CO2 25, BUN normalized at 17, creatinine 1.2, but low albumin of 2.7. The patient was evaluated by Physical Therapy and was able to ambulate 150 feet with a rolling walker at a supervision level. Discharge planning is to home. REVIEW OF PAST MEDICAL AND SURGICAL HISTORY: Parkinson disease, atrial fibrillation, coronary artery disease, hypertension, hyperlipidemia, renal insufficiency, GERD, osteoarthritis, diabetes, cataract resection, hernia repair. SOCIAL HISTORY: Lives alone. Premorbidly completely independent, using a rolling walker prior to admission. REVIEW OF SYSTEMS: No dizziness, no lightheadedness, no chest pain, no shortness of breath. No nausea, vomiting, difficulty swallowing, difficulty chewing. No abdominal discomfort. No bowel or bladder incontinence. No fever or chills. EXAMINATION: GENERAL: On examination, an elderly woman seen lying in bed in no acute distress. HEENT: She is normocephalic. She has a hematoma, left occipital area and left side of her face, ecchymosis. Her extraocular muscles appear intact. Neck: Supple. Extremities: Without any pitting edema or calf tenderness. Skin: Some ecchymosis.Neuromuscular: Awake, alert, oriented x3. Cranial nerves are grossly intact. She has fairly good muscle strength in the upper and lower extremities with functional range of motion, normal sensation to light touch. She has some arthritic changes in the upper extremities. OVERALL IMPRESSION: 1. Deficits in mobility, activities of daily living, mild. 2. Status post syncopal episode. 3. History of Parkinson disease. 4. History of atrial fibrillation, on Eliquis. 5. History of transient ischemic attack. 6. Coronary artery disease. 7. Atk-fzhdsxh-ueoegyhtv diabetes. 8. Anemia. 9. Head contusion. PLAN, SUGGESTION: 1. Disposition home. 2. Consider outpatient physical therapy. 3. Patient is on Eliquis. No further DVT prophylaxis needed. 4. Skin care. 5. Bowel regimen, monitor for constipation. 6. Follow up CBC. 7. Encouraged p.o. fluids. 8. Followup as outpatient as needed. Thank you for this referral. BRISEIDA XIAO M.D. NATALIIA/[id number]
== END 2018-10-14 16:08 | disposition home or self-care (01) | DRG 312 ==
LOC: JER 14:22 → JERBED 15:57 → J4W 17:56 → OBSVTOIN 20:07
PROVIDERS: ADMIT Family Medicine; ATTEND Family Medicine
DX: R55 Syncope and collapse (principal); G92 Toxic encephalopathy; S09.8XXA Other specified injuries of head, initial encounter; I48.0 Paroxysmal atrial fibrillation; W01.0XXA Fall on same level from slipping, tripping and stumbling without subsequent striking against object, initial encounter; Y93.89 Activity, other specified; Y92.89 Other specified places as the place of occurrence of the external cause; Y99.8 Other external cause status; D64.9 Anemia, unspecified; Z86.73 Personal history of transient ischemic attack (TIA), and cerebral infarction without residual deficits; Z79.01 Long term (current) use of anticoagulants; E04.9 Nontoxic goiter, unspecified; G20 Parkinson's disease; F02.80 Dementia in other diseases classified elsewhere, unspecified severity, without behavioral disturbance, psychotic disturbance, mood disturbance, and anxiety; E78.5 Hyperlipidemia, unspecified; R29.6 Repeated falls; I25.10 Atherosclerotic heart disease of native coronary artery without angina pectoris; E11.42 Type 2 diabetes mellitus with diabetic polyneuropathy; D51.9 Vitamin B12 deficiency anemia, unspecified
CPT/HCPCS: 36415; 70450-TC; 70551-TC; 71045-TC-FY; 80053; 80061; 81003; 81015; 82550; 82962; 83721; 83880; 84484; 85025; 85027; 85610; 87086; 87186; 93005; 93010; 93880-TC; 97116-GP; 97161-GP; 99283-25; G0378

== ENCOUNTER 2018-12-06 07:29 | Inpatient (IN) | payer OTHER ==
--- NOTE | 2018-12-06 07:49 | PDOC ---
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 Pt stated she sleeps in a recliner chair at night, and around 0200 today she awoke on the ground right in front of her chair, making her believe that she slipped out of the chair. She stated she "thought I was going to , so I did not call for help". She complains of bilateral knee pain, and bilateral diffuse lower extremity pain. She stated yesterday she had a 10 minute episode of chest "soreness" that lasted 10 minutes, left sided, non- exertional, no alleviating or aggravating factors, that resolved on its own. She denied current chest pain, shortness of breath, abdominal pain, nausea, vomiting, diarrhea, dysuria, lower extremity swelling, cough. She stated prior to this morning she was in her usual state of health. She stated she normally ambulates with a walker and has meals delivered by meals on wheels. Allergies: Naproxen 12/06/18 10:21 Daughter, Kira Kohler, now present stated that pt had recent medication changes x1 week ago by Dr. Hooker. -DC Myretiq 25 mg daily -DC Pramipexole -Add Nuplazid 34 mg daily Daughter stated that pt sleeps slumped down in the recliner chair usually. She stated she has had a chronic intermittent UTI. Past History - Past Medical History Allergies/Adverse Reactions: Allergies Allergy/AdvReac Type Severity Reaction Status Date / Time naproxen [From Naprosyn] AdvReac Intermediate Verified 12/06/18 08:01 Home Medications: Ambulatory Orders Ferrous Sulfate [Feosol] 325 mg PO DAILY 03/30/14 Simvastatin [Zocor -] 20 mg PO HS 04/16/14 Oliver/D3/Mag11/Zinc/Class 1 Owner Operator/Jonny/Bor [Caltrate 600+D Plus Tablet] 2 each PO DAILY Glipizide [Glipizide Xl] 5 mg PO BID 09/10/14 Magnesium Chloride [Slow-Mag -] 64 mg PO DAILY 09/10/14 Sitagliptin Phosphate [Januvia] 50 mg PO DAILY 04/13/17 Metoprolol Succinate [Toprol XL -] 25 mg PO DAILY #30 tab.sr.24h 08/18/18 Pramipexole Dihydrochloride [Mirapex -] 0.25 mg PO HS #30 tablet MDD 1 10/14/18 Apixaban [Eliquis] 2.5 mg PO BID 12/06/18 Benzonatate 200 mg PO TID PRN 12/06/18 Fluticasone Prop 0.05% Nasal [Flonase -] 1 - 2 spray NS DAILY 12/06/18 Pimavanserin Tartrate [Nuplazid] 34 mg PO DAILY 12/06/18 Quetiapine Fumarate [Seroquel -] 25 mg PO HS 12/06/18 Anemia: Yes Asthma: No Cardiac Disorders: Yes (atrial fibrillation, CAD) CVA: Yes (TIA) COPD: No CHF: No Diabetes: Yes (NIDDM) GI Disorders: (hernia) HTN: Yes Hypercholesterolemia: Yes Thyroid Disease: Yes (goiter) - Surgical History Abdominal Surgery: Yes (HERNIA) Appendectomy: No Cardiac Surgery: No Cholecystectomy: No Lung Surgery: No Neurologic Surgery: No Orthopedic Surgery: (arthritis finger surgery) - Immunization History Immunization Up to Date: No - Suicide/Smoking/Psychosocial Hx Smoking History: Never smoked Have you smoked in the past 12 months: No Hx Alcohol Use: No Drug/Substance Use Hx: No Hx Substance Use Treatment: No Review of Systems - Review of Systems Able to Perform ROS?: Yes Comments:: 12/06/18 08:15 General: admitted to generalized weakness. denied fever, chills. HEENT: denied sore throat, rhinorrhea, ear pain. Heart: admitted to chest pain. denied palpitations, syncope, diaphoresis. Respiratory: denied shortness of breath, cough, sputum production, hemoptysis. Abdomen: denied abdominal pain, nausea, vomiting, diarrhea, constipation, blood in stool. : denied dysuria, increased urinary frequency, hematuria, urinary incontinence , flank pain. Back: denied back pain. Musculoskeletal: admitted to bilateral knee pain, bilateral diffuse lower extremity pain. Neurological: denied headache, dizziness, numbness, tingling, weakness. Skin: denied rash, laceration, abrasion. *Physical Exam - Physical Exam Comments: 12/06/18 08:16 Constitutional: Well-nourished, Well-developed, appearing stated age. HEENT: head is normocephalic, atraumatic. EOMI. PERRLA. left eyelid closed. dry muscous membranes. Neck: supple. Full ROM. Heart: regular rhythm. no murmurs, rubs or gallops. Lungs: clear to auscultation bilaterally. no crackles, rhonchi or wheezing. no stridor. Abdomen: soft, nontender. normal bowel sounds. no rebound, guarding, masses. Extremities: peripheral pulses intact. no lower extremity edema. Neurological: alert. oriented x3. CN2-12 intact. 5/5 strength all extremities. normal ankle plantar flexion. full sensation all extremities and bilateral face. gait not observed. Psych: awake, alert, oriented x3. follows commands. answers questions appropriately. ED Treatment Course - LABORATORY CBC & Chemistry Diagram: 12/06/18 08:04 12/06/18 08:04 Medical Decision Making - Medical Decision Making 12/06/18 08:17 88 year old female with above PMH presented to ED after awaking on the floor, presumably from sliding out of her recliner that she sleeps in, unable to get off the floor. Pt had a 10 minute episode of chest pain yesterday. Pt currently complains of bilateral diffuse lower extremity pain. Initial Vital Signs Temp Pulse Resp BP Pulse Ox 98.2 F 72 16 136/60 96 12/06/18 07:30 12/06/18 07:30 12/06/18 07:30 12/06/18 07:30 12/06/18 07:30 Afebrile. No tachycardia. No tachypnea. Mild hypertension. No hypoxia on room air. Labs ordered: CBC, CMP, Mag, Phos, troponin Imaging ordered: CXR, bilateral knee XR, CT head, CT c-spine, pelvis XR Medications ordered: normal saline 500 cc bolus, tylenol IV EKG performed at 0836: rate 85, irregularly irregular, left axis, 1st degree AV block, left anterior fascicular blockflipped T in III/aVF. Similar to prior EKG performed 10/12/18. 12/06/18 08:40 CBC WBC 6.1 K/mm3 (4.0-10.0) 12/06/18 08:04 RBC 3.45 M/mm3 (3.60-5.2) L 12/06/18 08:04 Hgb 11.2 GM/dL (10.7-15.3) 12/06/18 08:04 Hct 33.0 % (32.4-45.2) 12/06/18 08:04 MCV 95.6 fl (80-96) 12/06/18 08:04 MCH 32.3 pg (25.7-33.7) 12/06/18 08:04 MCHC 33.8 g/dl (32.0-36.0) 12/06/18 08:04 RDW 13.5 % (11.6-15.6) 12/06/18 08:04 Plt Count 203 K/MM3 (134-434) 12/06/18 08:04 MPV 7.5 fl (7.5-11.1) 12/06/18 08:04 Absolute Neuts (auto) 4.4 K/mm3 (1.5-8.0) 12/06/18 08:04 Neutrophils % 72.0 % (42.8-82.8) 12/06/18 08:04 Lymphocytes % 15.2 % (8-40) D 12/06/18 08:04 Monocytes % 9.9 % (3.8-10.2) 12/06/18 08:04 Eosinophils % 2.0 % (0-4.5) 12/06/18 08:04 Basophils % 0.9 % (0-2.0) 12/06/18 08:04 Nucleated RBC % 0 % (0-0) 12/06/18 08:04 No leukocytosis. No anemia. 12/06/18 08:59 CMP Sodium 146 mmol/L (136-145) H 12/06/18 08:04 Potassium 4.3 mmol/L (3.5-5.1) 12/06/18 08:04 Chloride 115 mmol/L (98-107) H 12/06/18 08:04 Carbon Dioxide 21 mmol/L (21-32) 12/06/18 08:04 Anion Gap 10 MMOL/L (8-16) 12/06/18 08:04 BUN 34 mg/dL (7-18) H 12/06/18 08:04 Creatinine 1.7 mg/dL (0.55-1.3) H 12/06/18 08:04 Creat Clearance w eGFR 28.43 (>60) 12/06/18 08:04 Random Glucose 108 mg/dL (74-106) H 12/06/18 08:04 Calcium 8.9 mg/dL (8.5-10.1) 12/06/18 08:04 Phosphorus 3.6 mg/dL (2.5-4.9) 12/06/18 08:04 Magnesium 1.9 mg/dL (1.8-2.4) 12/06/18 08:04 Total Bilirubin 0.7 mg/dL (0.2-1) 12/06/18 08:04 AST 16 U/L (15-37) 12/06/18 08:04 ALT 9 U/L (13-61) L 12/06/18 08:04 Alkaline Phosphatase 63 U/L (45-117) 12/06/18 08:04 Creatine Kinase 66 U/L (26-192) 12/06/18 08:10 Troponin I < 0.02 ng/ml (0.00-0.05) 12/06/18 08:04 Total Protein 6.5 g/dl (6.4-8.2) 12/06/18 08:04 Albumin 3.3 g/dl (3.4-5.0) L 12/06/18 08:04 Mild hypernatremia, hyperchloremia. REZA - Baseline Cr 1.2 No transaminitis. No elevation of CK -Rhabdo unlikely Normal troponin -If chest pain yesterday was ACS would expect elevation by now 12/06/18 09:50 Urine Test Results Urine Color Yellow 12/06/18 08:03 Urine Appearance Turbid 12/06/18 08:03 Urine pH 5.0 (5.0-8.0) 12/06/18 08:03 Ur Specific [place] 1.010 (1.010-1.035) 12/06/18 08:03 Urine Protein Negative (NEGATIVE) 12/06/18 08:03 Urine Glucose (UA) Negative (NEGATIVE) 12/06/18 08:03 Urine Ketones Negative (NEGATIVE) 12/06/18 08:03 Urine Blood Trace (NEGATIVE) 12/06/18 08:03 Urine Nitrite Positive (NEGATIVE) H 12/06/18 08:03 Urine Bilirubin Negative (NEGATIVE) 12/06/18 08:03 Ur Leukocyte Esterase 3+ (NEGATIVE) H 12/06/18 08:03 Pt has UTI. -Past cultures sensitive to Ceftriaxone Medications ordered: Ceftriaxone [address] head report: moderate atrophy. no gross evidence of focal intracranial lesion hemorrhage. CT cervical spine report: minimal anterolisthesis of C4 over C5, likely degenerative. multilevel bilateral facet hypertrophy and moderate degenerative disc disease at C5/C6 level. 12/06/18 11:23 Pelvis XR report: no acute fracture. bilateral degenerative changes. Bilateral knee XR report: no effusion bilaterally. no fracture bilaterally. no dislocation bilaterally. bilateral enthesophyte at the site of insertion of the uadriceps tendon. right patellofemoral joint compartment narrowing. CXR report: no congestive changes. no pulmonary infiltrate. no pneumothorax. no large pleural effusion. Pt to be admitted for UTI, inability to ambulate. Pt admitted to Dr. Yeh's service. *DC/Admit/Observation/Transfer Diagnosis at time of Disposition: UTI (urinary tract infection), Unable to ambulate - Discharge Dispostion Condition at time of disposition: Stable Decision to Admit order: Yes - Referrals - Patient Instructions - Post Discharge Activity
[2018-12-06] MEDS ORDERED: SODIUM CHLORIDE 500 ML IV STA (08:15)
[2018-12-06] MEDS ORDERED: ACETAMINOPHEN 1000 MG/100 ML VIAL (NON FORMULARY) IVPB ONE (08:15)
[2018-12-06 08:16] LABS: BASO % 0.9 % (0-2.0); HEMOGLOBIN 11.2 GM/dL (10.7-15.3); LYMPH % 15.2 % (8-40); MCH 32.3 pg (25.7-33.7); MCHC 33.8 g/dl (32.0-36.0); MEAN CELL VOLUME 95.6 fl (80-96); MEAN PLT VOLUME 7.5 fl (7.5-11.1); MONO % 9.9 % (3.8-10.2); PLATELET COUNT 203 K/MM3 (134-434); RBC 3.45 M/mm3 (3.60-5.2); RDW 13.5 % (11.6-15.6); WHITE BLOOD COUNT 6.1 K/mm3 (4.0-10.0)
[2018-12-06] MEDS ORDERED: ACETAMINOPHEN INJECTION 100 ML IVPB ONE (08:36)
[2018-12-06 08:53] LABS: ALBUMIN 3.3 g/dl (3.4-5.0); ALK PHOS 63 U/L (45-117); ANION GAP 10 MMOL/L (8-16); BILIRUBIN,TOTAL 0.7 mg/dL (0.2-1); BLOOD UREA NITROGEN 34 mg/dL (7-18); CALCIUM 8.9 mg/dL (8.5-10.1); CHLORIDE 115 mmol/L (98-107); CO2 21 mmol/L (21-32); CREATININE 1.7 mg/dL (0.55-1.3); GLUCOSE,RANDOM 108 mg/dL (74-106); MAGNESIUM 1.9 mg/dL (1.8-2.4); PHOSPHOROUS 3.6 mg/dL (2.5-4.9); POTASSIUM 4.3 mmol/L (3.5-5.1); SGOT/AST 16 U/L (15-37); SGPT/ALT 9 U/L (13-61); SODIUM 146 mmol/L (136-145); TOT PROT 6.5 g/dl (6.4-8.2)
[2018-12-06 08:59] LABS: URINE APPEARANCE TURBID; URINE BILIRUBIN NEGATIVE (NEGATIVE); URINE CASTS 2 /hpf (0-8); URINE COLOR YELLOW; URINE GLUCOSE (UA) NEGATIVE (NEGATIVE); URINE KETONE NEGATIVE (NEGATIVE); URINE LEUK ESTERASE 3+ (NEGATIVE); URINE NITRITE POSITIVE (NEGATIVE); URINE PROTEIN NEGATIVE (NEGATIVE); URINE RBC 6 /hpf (0-4); URINE UROBILINOGEN 0.2 mg/dL (0.2-1.0); URINE WBC 562 /hpf (0-5)
[2018-12-06 09:01] LABS: INR 1.25 (0.83-1.09); PROTHROMBIN TIME (PATIENT) 14.8 SEC (9.7-13.0)
[2018-12-06 09:04] LABS: ACTIVATED PTT 32.9 SECONDS (25.2-36.5)
--- NOTE | 2018-12-06 09:46 | PDOC ---
Attending Attestation - Resident Resident Name: Bonilla Izaguirreyla - ED Attending Attestation I have performed the following: I have examined & evaluated the patient, The case was reviewed & discussed with the resident, I agree w/resident's findings & plan, Exceptions are as noted - HPI HPI: 12/06/18 09:43 88 F with h/o Afib on eliquis, TIA, CAD, HTN, DM, parkinsons, presenting to ED for generalized weakness. Pt states that she woke up on the ground this morning and has been unable to get up. She sleeps in a recliner and has no recollection of falling out of the chair last night. Denies TAFOYA. Pt endorses BLE pain. Denies any CP/SOB currently but states that she had some chest soreness yesterday. Denies any F/C. Denies abdominal pain/N/V/D. - Physicial Exam PE: 12/06/18 09:45 Agree with resident exam - Medical Decision Making 12/06/18 09:45 88 F with generalized weakness and fall this AM. Will evaluate for infectious process. Also consider ACS. Pt with no neuro deficits to suggest CVA. - Labs, trop - CXR, UA - CTH, c-spine 12/06/18 10:44 Labs notable for UTI CT head negative
[2018-12-06] MEDS ORDERED: CEFTRIAXONE 1 GM in DEXTROSE 5%-WATER - 100 ML IVPB ONE (09:50)
[2018-12-06] MEDS ORDERED: CEFTRIAXONE 1 GM/50 ML BAG ONE (10:12)
--- NOTE | 2018-12-06 10:25 | EKG ---
Test Reason : Blood Pressure : / mmHG Vent. Rate : 085 BPM Atrial Rate : 085 BPM P-R Int : 236 ms QRS Dur : 114 ms QT Int : 392 ms P-R-T Axes : 051 -58 -26 degrees QTc Int : 466 ms SINUS RHYTHM WITH 1ST DEGREE A-V BLOCK WITH PREMATURE ATRIAL COMPLEXES INCOMPLETE RIGHT BUNDLE BRANCH BLOCK LEFT ANTERIOR FASCICULAR BLOCK T WAVE ABNORMALITY, CONSIDER ANTERIOR ISCHEMIA ABNORMAL ECG WHEN COMPARED WITH ECG OF 12-OCT-2018 16:17, PREMATURE ATRIAL COMPLEXES ARE NOW PRESENT T WAVE INVERSION MORE EVIDENT IN ANTERIOR LEADS Confirmed by SUGEY MARTINEZ MD ([id number]) on 12/06/2018 10:25:09 AM Referred By: Confirmed By:SUGEY MARTINEZ MD
--- NOTE | 2018-12-06 15:12 | PN ---
Progress Note (short form) - Note Progress Note: ID consult dictated imp/reccd 88 yo female lives with grandson, history of parkinson's frequent falls, UTI fell from her recliner where she sleeps at night and slid to the floor was unable to get up became anxious and scared and started having chest pain brought to ED now alert daughter at bedside she is having more hallucinations which she has when she gets a UTI no fevers reports frequent urination UTI with pyuria REZA Parkinsons disease has had prior briceno sensitive organisms- no MDRO blood cultures urine culture rocephin Problem List - Problems (1) Urinary tract infection Code(s): N39.0 - URINARY TRACT INFECTION, SITE NOT SPECIFIED
--- NOTE | 2018-12-06 15:24 | HP ---
Admitting History and Physical - Admission Chief Complaint: came in she was unable to get up from chair with leg pains History of Present Illness: 88 yr old female came in last night when she was on recliner she slid of it and was unable to get up at 2:00am she waited till 6:00am then presed her helpline button and brought to ER, she ambulates with walker at home , she has been eating adn drinking normally, she has parkinson, DM ,anemia, HTN. 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: TIA, Parkinson's Cardiovascular: Yes: AFIB, CAD, HTN, Hyperlipdemia Gastrointestinal: Yes: GERD Renal/: Yes: Renal Inusuff Heme/Onc: Yes: Anemia, B12 Deficiency Musculoskeletal: Yes: Osteoarthritis Endocrine: Yes: Diabetes Mellitus - Past Surgical History Past Surgical History: Yes: Cataract Removal, Hernia Repair - Smoking History Smoking history: Never smoked Have you smoked in the past 12 months: No - Alcohol/Substance Use Hx Alcohol Use: No - Social History ADL: Independent History of Recent Travel: No Home Medications - Allergies Allergies/Adverse Reactions: Allergies Allergy/AdvReac Type Severity Reaction Status Date / Time naproxen [From Naprosyn] AdvReac Intermediate Verified 12/06/18 08:01 - Home Medications Home Medications: Ambulatory Orders Ferrous Sulfate [Feosol] 325 mg PO DAILY 03/30/14 Simvastatin [Zocor -] 20 mg PO HS 04/16/14 Oliver/D3/Mag11/Zinc/Vault Maker/Jonny/Bor [Caltrate 600+D Plus Tablet] 2 each PO DAILY Glipizide [Glipizide Xl] 5 mg PO BID 09/10/14 Magnesium Chloride [Slow-Mag -] 64 mg PO DAILY 09/10/14 Sitagliptin Phosphate [Januvia] 50 mg PO DAILY 04/13/17 Metoprolol Succinate [Toprol XL -] 25 mg PO DAILY #30 tab.sr.24h 08/18/18 Pramipexole Dihydrochloride [Mirapex -] 0.25 mg PO HS #30 tablet MDD 1 10/14/18 Apixaban [Eliquis] 2.5 mg PO BID 12/06/18 Benzonatate 200 mg PO TID PRN 12/06/18 Fluticasone Prop 0.05% Nasal [Flonase -] 1 - 2 spray NS DAILY 12/06/18 Pimavanserin Tartrate [Nuplazid] 34 mg PO DAILY 12/06/18 Quetiapine Fumarate [Seroquel -] 25 mg PO HS 12/06/18 Review of Systems - Review of Systems Respiratory: reports: No Symptoms Gastrointestinal: reports: No Symptoms Genitourinary: reports: No Symptoms Musculoskeletal: reports: Joint Pain (knee and hip pain), Other (leg pain) Physical Examination Vital Signs: Vital Signs Temperature 97.7 F 12/06/18 15:14 Pulse Rate 77 12/06/18 15:14 Respiratory Rate 18 12/06/18 15:14 Blood Pressure 124/61 12/06/18 15:14 O2 Sat by Pulse Oximetry (%) 96 12/06/18 15:14 Constitutional: Yes: Calm Neck: Yes: Trachea Midline Cardiovascular: Yes: Regular Rate and Rhythm Respiratory: Yes: CTA Bilaterally Gastrointestinal: Yes: Normal Bowel Sounds, Soft Edema: No Labs: CBC, BMP 12/06/18 08:04 12/06/18 08:04 Imaging - Results X-ray: Report Reviewed Cat Scan: Report Reviewed Assessment/Plan leg weakness PT neurology dr tejada xray noted dvt ppx UTI awaiting cultures on rocephin ID check CPK levels ivf parkinson - neurology REZA- renal sono noted urology for bladder wall thickening ivf afib on eliquis and toprol cardiology
[2018-12-06] MEDS ORDERED: SODIUM CHLORIDE 0.45% 1,000 ML IV SCH (15:45)
[2018-12-06] MEDS: INSULIN SLIDING SCALE (NOVOLOG) 1 VIAL SQ SCH (17:39)
[2018-12-06] MEDS ORDERED: INSULIN (NOVOLOG) ASPART 100 UNITS/ML 10ML VIAL ONE (17:41)
[2018-12-06 21:40] LABS: ALK PHOS 58 U/L (45-117); ANION GAP 8 MMOL/L (8-16); BILIRUBIN,TOTAL 0.4 mg/dL (0.2-1); BLOOD UREA NITROGEN 28 mg/dL (7-18); CALCIUM 8.2 mg/dL (8.5-10.1); CHLORIDE 124 mmol/L (98-107); CO2 24 mmol/L (21-32); CREATININE 1.4 mg/dL (0.55-1.3); GLUCOSE,RANDOM 70 mg/dL (74-106); MAGNESIUM 1.5 mg/dL (1.8-2.4); POTASSIUM 4.3 mmol/L (3.5-5.1); SGOT/AST 15 U/L (15-37); SGPT/ALT 13 U/L (13-61); SODIUM 156 mmol/L (136-145)
[2018-12-07] MEDS: APIXABAN 2.5 MG TABLET PO SCH ×3 (00:58→21:50)
[2018-12-07] MEDS: PRAMIPEXOLE DIHYDROCHLORIDE 0.25 MG TABLET PO SCH ×2 (00:59→22:24)
[2018-12-07] MEDS: INSULIN SLIDING SCALE (NOVOLOG) 1 VIAL SQ SCH ×5 (02:36→21:09)
[2018-12-07 04:51] VITALS: BMI 25.7
[2018-12-07 07:18] LABS: HEMATOCRIT 31.3 % (32.4-45.2); HEMOGLOBIN 10.6 GM/dL (10.7-15.3); MCH 32.3 pg (25.7-33.7); MEAN CELL VOLUME 94.9 fl (80-96); MEAN PLT VOLUME 7.4 fl (7.5-11.1); PLATELET COUNT 198 K/MM3 (134-434); RDW 13.5 % (11.6-15.6); WHITE BLOOD COUNT 4.4 K/mm3 (4.0-10.0)
[2018-12-07 07:21] LABS: ALBUMIN 2.9 g/dl (3.4-5.0); ALK PHOS 54 U/L (45-117); ANION GAP 6 MMOL/L (8-16); BILIRUBIN,TOTAL 0.5 mg/dL (0.2-1); BLOOD UREA NITROGEN 23 mg/dL (7-18); CALCIUM 8.1 mg/dL (8.5-10.1); CHLORIDE 115 mmol/L (98-107); CO2 23 mmol/L (21-32); CREATININE 1.2 mg/dL (0.55-1.3); GLUCOSE,RANDOM 110 mg/dL (74-106); MAGNESIUM 1.7 mg/dL (1.8-2.4); PHOSPHOROUS 3.9 mg/dL (2.5-4.9); POTASSIUM 4.3 mmol/L (3.5-5.1); SGOT/AST 11 U/L (15-37); SGPT/ALT 14 U/L (13-61); SODIUM 144 mmol/L (136-145); TOT PROT 5.8 g/dl (6.4-8.2)
[2018-12-07 07:40] LABS: CHOLESTEROL 100 mg/dL (50-200); HDL CHOLESTEROL 59 mg/dL (40-60); TRIGLYCERIDES 81 mg/dL (0-150)
[2018-12-07 08:53] LABS: INR 1.31 (0.83-1.09); PROTHROMBIN TIME (PATIENT) 15.5 SEC (9.7-13.0)
[2018-12-07] MEDS ORDERED: DEXTROSE 5%-WATER - 50 ML IVPB ONE (09:47)
[2018-12-07] MEDS ORDERED: cefTRIAXone SODIUM 1 GM VIAL ONE (09:47)
[2018-12-07] MEDS: metoPROLOL SUCCINATE 25 MG TAB.SR.24H (FP) PO SCH (09:53)
[2018-12-07] MEDS: CEFTRIAXONE 1 GM in DEXTROSE 5%-WATER - 50 ML IVPB SCH (09:53)
--- NOTE | 2018-12-07 10:38 | PN ---
Progress Note, Physician Chief Complaint: UTI Weakness REZA History of Present Illness: NAD in bed eating lunch, wants to go home Worked with PT today-walked 300 ft - Current Medication List Current Medications: Active Medications Apixaban (Eliquis -) 2.5 mg PO BID [facility] Last Admin: 12/07/18 09:53 Dose: 2.5 mg Sodium Chloride (1/2 Normal Saline) 1,000 mls @ 50 mls/hr IV ASDIR [facility] Stop: 12/07/18 15:35 Last Admin: 12/06/18 16:17 Dose: 50 mls/hr Ceftriaxone Sodium 1 gm/ (Dextrose) 50 mls @ 100 mls/hr IVPB DAILY [facility]; Protocol Last Admin: 12/07/18 09:53 Dose: 100 mls/hr Insulin Aspart (Novolog Vial Sliding Scale -) 1 vial SQ ACHS [facility]; Protocol Last Admin: 12/07/18 06:19 Dose: Not Given Metoprolol Succinate (Toprol Xl -) 25 mg PO DAILY [facility] Last Admin: 12/07/18 09:53 Dose: 25 mg Pramipexole Dihydrochloride (Mirapex -) 0.25 mg PO HS [facility] Last Admin: 12/07/18 00:59 Dose: Not Given - Objective Vital Signs: Vital Signs Temperature 97.7 F 12/07/18 06:50 Pulse Rate 87 12/07/18 06:50 Respiratory Rate 16 12/07/18 06:50 Blood Pressure 152/90 12/07/18 06:50 O2 Sat by Pulse Oximetry (%) 98 12/07/18 05:24 Constitutional: Yes: Well Nourished, No Distress, Calm Cardiovascular: Yes: Regular Rate and Rhythm Respiratory: Yes: Regular Gastrointestinal: Yes: WNL Musculoskeletal: Yes: WNL Extremities: Yes: WNL Edema: No Peripheral Pulses WNL: Yes Neurological: Yes: Alert, Pre-Existing Deficit Psychiatric: Yes: Alert Labs: CBC, BMP 12/07/18 06:20 12/07/18 06:20 INR, PTT INR 1.31 (0.83-1.09) H 12/07/18 06:20 Problem List - Problems (1) Metabolic encephalopathy Assessment/Plan: -2/2 to UTI -improving Code(s): G93.41 - METABOLIC ENCEPHALOPATHY (2) Frequent falls Assessment/Plan: -On Eliquis for PAF -Has fallen # of times in past 1 year -Risk> benefit -PT Code(s): R29.6 - REPEATED FALLS (3) REZA (acute kidney injury) Assessment/Plan: -/ to UTI -on 08/25 NS -Cr improving -monitor trend Code(s): N17.9 - ACUTE KIDNEY FAILURE, UNSPECIFIED (4) Urinary tract infection Assessment/Plan: -ID on board -On IV rocephin -UC: Microbiology 12/06/18 08:03 Urine Culture - Preliminary Urine - Urine Clean Catch Lactose Fermenting Neg Bacilli -Switch to PO abx if okay by ID tomorrow Code(s): N39.0 - URINARY TRACT INFECTION, SITE NOT SPECIFIED (5) Altered mental status Code(s): R41.82 - ALTERED MENTAL STATUS, UNSPECIFIED (6) Hallucinations Code(s): R44.3 - HALLUCINATIONS, UNSPECIFIED (7) Paroxysmal A-fib Assessment/Plan: -On Eliquis Code(s): I48.0 - PAROXYSMAL ATRIAL FIBRILLATION Assessment/Plan see problem list Physical therapy
--- NOTE | 2018-12-07 12:17 | CONSULT ---
Consult - text type - Consultation Consultation Note: Renal Consult for REZA This is a 88 year old woman with hx of Afib on Eliquis, CAD, Hypertension, DM, Parkinson's who presented from home with generalized weakness and inability to get off the ground. Pt says that she went to sleep in her recliner but when she awoke she was on the ground and unable to get up. She was on the ground for 2 hours. Cr was noted to be elevated on admission. Denies any NSIAD use. Pt with prior hx of REZA. No recent Abx use. No recent contrast exposure. No flank pain, dysuria, N/V/D. Reports that her oral intake has been poor for the past week. No skin rash. PMhx: as above allergies: Naproxen Family Hx: NC Social hx: No T/A/D ROS: as per HPI Home Medications Medication Instructions Recorded Ferrous Sulfate [Feosol] 325 mg PO DAILY 03/30/14 Simvastatin [Zocor -] 20 mg PO HS 04/16/14 Oliver/D3/Mag11/Zinc/Slicer Machine Operator/Jonny/Bor 2 each PO DAILY 09/10/14 [Caltrate 600+D Plus Tablet] Glipizide [Glipizide Xl] 5 mg PO BID 09/10/14 Magnesium Chloride [Slow-Mag -] 64 mg PO DAILY 09/10/14 Sitagliptin Phosphate [Januvia] 50 mg PO DAILY 04/13/17 Metoprolol Succinate [Toprol XL -] 25 mg PO DAILY #30 tab.sr.24h 08/18/18 Pramipexole Dihydrochloride 0.25 mg PO HS #30 tablet MDD 1 10/14/18 [Mirapex -] Apixaban [Eliquis] 2.5 mg PO BID 12/06/18 Benzonatate 200 mg PO TID PRN 12/06/18 Fluticasone Prop 0.05% Nasal 1 - 2 spray NS DAILY 12/06/18 [Flonase -] Pimavanserin Tartrate [Nuplazid] 34 mg PO DAILY 12/06/18 Quetiapine Fumarate [Seroquel -] 25 mg PO HS 12/06/18 Vital Signs Temperature 97.7 F 12/07/18 06:50 Pulse Rate 87 12/07/18 06:50 Respiratory Rate 16 12/07/18 06:50 Blood Pressure 152/90 12/07/18 06:50 O2 Sat by Pulse Oximetry (%) 98 12/07/18 05:24 Intake & Output 12/04/18 12/05/18 12/06/18 12/07/18 23:59 23:59 23:59 23:59 Intake Total 250 Balance 250 Weight 56.245 kg 65.771 kg NAD awake and alert neck supple, no JVD irregular, no M/R CTA, no rales or wheeze soft NT/ND no LE edema, clubbing or cyanosis CBC, BMP 12/07/18 06:20 12/07/18 06:20 Current Medications Apixaban (Eliquis -) 2.5 mg PO BID DUSTY Last Admin: 12/07/18 09:53 Dose: 2.5 mg Sodium Chloride (1/2 Normal Saline) 1,000 mls @ 50 mls/hr IV ASDIR DUSTY Stop: 12/07/18 15:35 Last Admin: 12/06/18 16:17 Dose: 50 mls/hr Ceftriaxone Sodium 1 gm/ (Dextrose) 50 mls @ 100 mls/hr IVPB DAILY DUSTY; Protocol Last Admin: 12/07/18 09:53 Dose: 100 mls/hr Insulin Aspart (Novolog Vial Sliding Scale -) 1 vial SQ ACHS [facility]; Protocol Last Admin: 12/07/18 11:48 Dose: 2 unit Metoprolol Succinate (Toprol Xl -) 25 mg PO DAILY [facility] Last Admin: 12/07/18 09:53 Dose: 25 mg Pramipexole Dihydrochloride (Mirapex -) 0.25 mg PO HS [facility] Last Admin: 12/07/18 00:59 Dose: Not Given 88 year old woman with hx of Afib on Eliquis, CAD, Hypertension, DM, Parkinson' s who presented from home with generalized weakness and inability to get off the ground with REZA. #REZA from volume depletion in setting of poor oral intake and UTI #Hypernatremia (now resolved) #Fall #Generalized weakness #UTI/Cystitis #Anemia Renal function improving toward baseline with IVF continue 1/2 NS for now oral fluid intake as tolerated continue Abx as per primary team f/u cultures renal function is better, if pt tolerating oral diet can consider discharge with outpatient follow up Thank you Jalen Sanchez DO
--- NOTE | 2018-12-07 13:19 | CONSULT ---
Consult - text type - Consultation Consultation Note: NEUROLOGY CONSULT APPRECIATED: Events reviewed and discussed with staff and CELESTE Mojica. Pt seen and examined. Case discussed with daughter Tess. This 88 yo F lives with grandson upstairs and HHS 5hours, 2 days a week. PMHX DM, ASHD, Afib, HTN, HLD. Well-known to me for Parkinson's and Restless Limbs. Last seen in consult in office 11/29/18. Was stable, independently ambulating, on Sinemet 25/250 QID @6, 10, 2 and 6 Recurrent admissions to [facility] due to falls and UTI. Admitted after slip from recliner in evening hours. Found Pos UTI, currently on ceftriaxone. Review of systems significant for insomnia attributed to "pains" in the legs in the evening, requiring her to sleep with legs elevated on recliner chair. Was improved on pramipexole, however noted with 4-6 months of hallucinations necessitating d/c of therapy. Recently started on Nuplazid 34 md qd. UA WBC= 552 UC= > 100,000 lactose fermenting gram neg bacilli MIROSLAVA: Cor irregularly irregular. No bruit. Neck supple. Old, faded rivera discoloration noted to L islam, cheek and back of head. NEURO: Awake, alert, Oriented x 3. Spastic dysphonia. CNII-CNXII: EOM intact with full alamo. Mildly reduced rapid tongue. Gag ok. Motor: +rest tremor. Bradykinetic. Minimal cogwheeling. AJ's absent. Decreased COSMO's. Plantars silent. Coordination: No FTN dystaxia Sensation: Min reduced vibration toes. Impression: 1. Toxic-Metabolic Encephalopathy (Urosepsis) 2. Parkinson's Disease 3. Parkinson's disease psychosis 4. Restless Limb Syndrome (RLS). 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
[2018-12-07] MEDS: CARBIDOPA/LEVODOPA 25/250 TABLET (FP) PO SCH ×2 (17:26→21:50)
[2018-12-07] MEDS ORDERED: PT OWN MED DRAWER 7, Y5N ONE ×2 (17:34→21:46)
[2018-12-08] MEDS ORDERED: PT OWN MED DRAWER 7, Y5N ONE ×2 (05:26→09:37)
[2018-12-08 05:33] VITALS: TEMP 98.6
[2018-12-08] MEDS: INSULIN SLIDING SCALE (NOVOLOG) 1 VIAL SQ SCH ×2 (06:19→11:20)
[2018-12-08 06:37] LABS: BASO % 0.8 % (0-2.0); EOS % 2.4 % (0-4.5); HEMATOCRIT 32.8 % (32.4-45.2); LYMPH % 9.7 % (8-40); MCHC 33.7 g/dl (32.0-36.0); MEAN CELL VOLUME 95.2 fl (80-96); MEAN PLT VOLUME 7.5 fl (7.5-11.1); MONO % 9.6 % (3.8-10.2); NEUT % 77.5 % (42.8-82.8); PLATELET COUNT 201 K/MM3 (134-434); RBC 3.44 M/mm3 (3.60-5.2); RDW 13.6 % (11.6-15.6); WHITE BLOOD COUNT 6.4 K/mm3 (4.0-10.0)
[2018-12-08] MEDS: CARBIDOPA/LEVODOPA 25/250 TABLET (FP) PO SCH ×2 (06:38→09:41)
[2018-12-08 06:59] LABS: ANION GAP 8 MMOL/L (8-16); BLOOD UREA NITROGEN 18 mg/dL (7-18); CALCIUM 8.8 mg/dL (8.5-10.1); CHLORIDE 112 mmol/L (98-107); CO2 23 mmol/L (21-32); CREATININE 1.1 mg/dL (0.55-1.3); GLUCOSE,RANDOM 161 mg/dL (74-106); MAGNESIUM 1.5 mg/dL (1.8-2.4); PHOSPHOROUS 3.1 mg/dL (2.5-4.9); POTASSIUM 4.4 mmol/L (3.5-5.1); SODIUM 142 mmol/L (136-145)
[2018-12-08] MEDS ORDERED: cefTRIAXone SODIUM 1 GM VIAL ONE (09:37)
[2018-12-08] MEDS ORDERED: DEXTROSE 5%-WATER - 50 ML IVPB ONE (09:38)
[2018-12-08] MEDS: metoPROLOL SUCCINATE 25 MG TAB.SR.24H (FP) PO SCH (09:41)
[2018-12-08] MEDS: CEFTRIAXONE 1 GM in DEXTROSE 5%-WATER - 50 ML IVPB SCH (09:41)
[2018-12-08] MEDS: APIXABAN 2.5 MG TABLET PO SCH (09:41)
--- NOTE | 2018-12-08 10:42 | DS ---
Physical Examination Vital Signs: Vital Signs Temperature 98.6 F 12/08/18 05:33 Pulse Rate 82 12/08/18 05:33 Respiratory Rate 18 12/08/18 05:33 Blood Pressure 150/86 12/08/18 05:33 O2 Sat by Pulse Oximetry (%) 96 12/07/18 20:44 Findings/Remarks: 88 yr old female came in last night when she was on recliner she slid of it and was unable to get up at 2:00am she waited till 6:00am then presed her helpline button and brought to ER, she ambulates with walker at home , she has been eating adn drinking normally, she has parkinson, DM ,anemia, HTN. in ER found to have UTI and REZA Constitutional: Yes: Well Nourished, No Distress, Calm Cardiovascular: Yes: Regular Rate and Rhythm Respiratory: Yes: Regular Gastrointestinal: Yes: Normal Bowel Sounds, Soft Musculoskeletal: Yes: WNL Extremities: Yes: WNL Edema: No Peripheral Pulses WNL: Yes Neurological: Yes: Alert, Oriented Psychiatric: Yes: Alert, Oriented Labs: CBC, BMP 12/08/18 06:00 12/08/18 06:00 Discharge Summary Reason For Visit: UTI Current Active Problems REZA (acute kidney injury) (Acute) Frequent falls (Acute) Metabolic encephalopathy (Acute) Unable to ambulate (Acute) Urinary tract infection (Acute) Hospital Course: Laboratory Last Values WBC 6.4 K/mm3 (4.0-10.0) 12/08/18 06:00 RBC 3.44 M/mm3 (3.60-5.2) L 12/08/18 06:00 Hgb 11.0 GM/dL (10.7-15.3) 12/08/18 06:00 Hct 32.8 % (32.4-45.2) 12/08/18 06:00 MCV 95.2 fl (80-96) 12/08/18 06:00 MCH 32.0 pg (25.7-33.7) 12/08/18 06:00 MCHC 33.7 g/dl (32.0-36.0) 12/08/18 06:00 RDW 13.6 % (11.6-15.6) 12/08/18 06:00 Plt Count 201 K/MM3 (134-434) 12/08/18 06:00 MPV 7.5 fl (7.5-11.1) 12/08/18 06:00 Absolute Neuts (auto) 4.9 K/mm3 (1.5-8.0) 12/08/18 06:00 Neutrophils % 77.5 % (42.8-82.8) 12/08/18 06:00 Lymphocytes % 9.7 % (8-40) D 12/08/18 06:00 Monocytes % 9.6 % (3.8-10.2) 12/08/18 06:00 Eosinophils % 2.4 % (0-4.5) 12/08/18 06:00 Basophils % 0.8 % (0-2.0) 12/08/18 06:00 Nucleated RBC % 0 % (0-0) 12/08/18 06:00 PT with INR 15.50 SEC (9.7-13.0) H 12/07/18 06:20 INR 1.31 (0.83-1.09) H 12/07/18 06:20 PTT (Actin FS) 32.9 SECONDS (25.2-36.5) 12/06/18 08:20 Sodium 142 mmol/L (136-145) 12/08/18 06:00 Potassium 4.4 mmol/L (3.5-5.1) 12/08/18 06:00 Chloride 112 mmol/L (98-107) H 12/08/18 06:00 Carbon Dioxide 23 mmol/L (21-32) 12/08/18 06:00 Anion Gap 8 MMOL/L (8-16) 12/08/18 06:00 BUN 18 mg/dL (7-18) 12/08/18 06:00 Creatinine 1.1 mg/dL (0.55-1.3) 12/08/18 06:00 Creat Clearance w eGFR 46.98 (>60) 12/08/18 06:00 POC Glucometer 157 UNITS (80-120) 12/08/18 05:53 Random Glucose 161 mg/dL (74-106) H 12/08/18 06:00 Hemoglobin A1c % 7.3 % (4.2-6.3) H 12/07/18 06:20 Calcium 8.8 mg/dL (8.5-10.1) 12/08/18 06:00 Phosphorus 3.1 mg/dL (2.5-4.9) 12/08/18 06:00 Magnesium 1.5 mg/dL (1.8-2.4) L 12/08/18 06:00 Total Bilirubin 0.5 mg/dL (0.2-1) 12/07/18 06:20 AST 11 U/L (15-37) L 12/07/18 06:20 ALT 14 U/L (13-61) 12/07/18 06:20 Alkaline Phosphatase 54 U/L (45-117) 12/07/18 06:20 Creatine Kinase 54 U/L (26-192) 12/07/18 06:20 Troponin I < 0.02 ng/ml (0.00-0.05) 12/06/18 08:04 Total Protein 5.8 g/dl (6.4-8.2) L 12/07/18 06:20 Albumin 2.9 g/dl (3.4-5.0) L 12/07/18 06:20 Triglycerides 81 mg/dL (0-150) 12/07/18 06:20 Cholesterol 100 mg/dL (50-200) 12/07/18 06:20 Total LDL Cholesterol 40 mg/dL (5-100) 12/07/18 06:20 HDL Cholesterol 59 mg/dL (40-60) 12/07/18 06:20 Urine Color Yellow 12/06/18 08:03 Urine Appearance Turbid 12/06/18 08:03 Urine pH 5.0 (5.0-8.0) 12/06/18 08:03 Ur Specific [place] 1.010 (1.010-1.035) 12/06/18 08:03 Urine Protein Negative (NEGATIVE) 12/06/18 08:03 Urine Glucose (UA) Negative (NEGATIVE) 12/06/18 08:03 Urine Ketones Negative (NEGATIVE) 12/06/18 08:03 Urine Blood Trace (NEGATIVE) 12/06/18 08:03 Urine Nitrite Positive (NEGATIVE) H 12/06/18 08:03 Urine Bilirubin Negative (NEGATIVE) 12/06/18 08:03 Urine Urobilinogen 0.2 mg/dL (0.2-1.0) 12/06/18 08:03 Ur Leukocyte Esterase 3+ (NEGATIVE) H 12/06/18 08:03 Urine WBC (Auto) 562 /hpf (0-5) 12/06/18 08:03 Urine RBC (Auto) 6 /hpf (0-4) 12/06/18 08:03 Urine Casts (Auto) 2 /hpf (0-8) 12/06/18 08:03 U Epithel Cells (Auto) 2.0 /HPF (0-5/HPF) 12/06/18 08:03 Urine Bacteria (Auto) 1050.0 /hpf (NEGATIVE) 12/06/18 08:03 Microbiology 12/06/18 08:03 Urine - Urine Clean Catch Urine Culture - Final Escherichia Coli 12/06/18 20:30 Blood - Peripheral Venous Blood Culture - Preliminary NO GROWTH OBTAINED AFTER 24 HOURS, INCUBATION TO CONTINUE FOR 4 DAYS. 12/06/18 20:30 Blood - Peripheral Venous Blood Culture - Preliminary NO GROWTH OBTAINED AFTER 24 HOURS, INCUBATION TO CONTINUE FOR 4 DAYS. Vital Signs Temp 98.6 F 12/08/18 05:33 Pulse 82 12/08/18 05:33 Resp 18 12/08/18 05:33 BP 150/86 12/08/18 05:33 Pulse Ox 96 12/07/18 20:44 Intake & Output 12/07/18 12/07/18 12/08/18 11:59 23:59 11:59 Intake Total 250 520 Balance 250 520 Weight 65.771 kg Intake: IV 250 1/2 Normal Saline 1,000 250 ml @ 50 mls/hr IV ASDIR DUSTY Rx#:[id number] Oral 520 Other: Voiding Method Incontinent Incontinent Incontinent # Unmeasured Voids Void 1 3 Bowel Movement No No # Bowel Movements 0 Height 5 ft 3 in Body Mass Index (BMI) 25.7 Weight Measurement Method Built in [facility] Condition: Stable - Instructions Disposition: VNS/HOME HEALTH CARE - Home Medications Comprehensive Discharge Medication List: Ambulatory Orders Ferrous Sulfate [Feosol] 325 mg PO DAILY 03/30/14 Simvastatin [Zocor -] 20 mg PO HS 04/16/14 Oliver/D3/Mag11/Zinc/Epic Ambulatory Analyst/Jonny/Bor [Caltrate 600+D Plus Tablet] 2 each PO DAILY Glipizide [Glipizide Xl] 5 mg PO BID 09/10/14 Magnesium Chloride [Slow-Mag -] 64 mg PO DAILY 09/10/14 Sitagliptin Phosphate [Januvia] 50 mg PO DAILY 04/13/17 Metoprolol Succinate [Toprol XL -] 25 mg PO DAILY #30 tab.sr.24h 08/18/18 Pramipexole Dihydrochloride [Mirapex -] 0.25 mg PO HS #30 tablet MDD 1 10/14/18 Apixaban [Eliquis] 2.5 mg PO BID 12/06/18 Benzonatate 200 mg PO TID PRN 12/06/18 Fluticasone Prop 0.05% Nasal [Flonase -] 1 - 2 spray NS DAILY 12/06/18 Pimavanserin Tartrate [Nuplazid] 34 mg PO DAILY 12/06/18 Quetiapine Fumarate [Seroquel -] 25 mg PO HS 12/06/18
[2018-12-08] MEDS ORDERED: INSULIN (NOVOLOG) ASPART 100 UNITS/ML 10ML VIAL ONE (11:19)
[2018-12-08 11:39] VITALS: BP 104/62; PULSE 98
[2018-12-08] MEDS ORDERED: MAGNESIUM CL 64 MG TABLET.SA PO ONE (12:15)
== END 2018-12-08 13:16 | disposition home health service (06) | DRG 682 ==
LOC: JER 07:29 → JERBED 11:28 → J6S 12-07 01:19
PROVIDERS: ADMIT Family Medicine; ATTEND Family Medicine
DX: N17.9 Acute kidney failure, unspecified (principal); G93.41 Metabolic encephalopathy; N39.0 Urinary tract infection, site not specified; E87.0 Hyperosmolality and hypernatremia; E87.5 Hyperkalemia; G20 Parkinson's disease; G25.81 Restless legs syndrome; I25.10 Atherosclerotic heart disease of native coronary artery without angina pectoris; I10 Essential (primary) hypertension; E11.9 Type 2 diabetes mellitus without complications; D64.9 Anemia, unspecified; I48.0 Paroxysmal atrial fibrillation; E78.5 Hyperlipidemia, unspecified
CPT/HCPCS: 36415; 70450-TC; 71045-TC-FY; 72125-TC; 72170-TC-FY; 73562-TC-LT-FY; 73562-TC-RT-FY; 76775-TC; 76856-TC; 80048; 80053; 80061; 81003; 82550; 82962; 83036; 83721; 83735; 84100; 84484; 85025; 85027; 85610; 85730; 87040; 87086; 87186; 93005; 93010; 97116-GP; 97162-GP; 99285-25; J0131; J7030

== ENCOUNTER 2019-02-28 21:36 | Inpatient (IN) | payer OTHER ==
--- NOTE | 2019-03-01 00:03 | PDOC ---
Attending Attestation - Resident Resident Name: Scooter Barker - ED Attending Attestation I have performed the following: I have examined & evaluated the patient, The case was reviewed & discussed with the resident, I agree w/resident's findings & plan - HPI HPI: 03/01/19 02:39 89-year-old female status post mechanical fall after tripping on her cat - Physicial Exam PE: 03/01/19 02:39 agree with residents exam - Medical Decision Making 03/01/19 02:40 89-year-old female status post trip and fall CT scan of the brain shows no acute abnormality CT scan of the cervical spine shows a possible C2 spinous fracture that appears stable Patient is neurologically intact Case discussed with on-call neurosurgery who recommends collar for comfort and follow-up as needed Due to patient's active use of Eloquis she will be admitted for short-term observation and repeat CT scan of the brain
--- NOTE | 2019-03-01 00:09 | PDOC ---
History of Present Illness - General Chief Complaint: Injury Stated Complaint: FALL Time Seen by Provider: 03/01/19 00:01 - History of Present Illness Initial Comments: 03/01/19 01:23 The patient is an 89 year old female with a history of HTN, HLD, DM, TIA, Afib on eloquis who presents for evaluation following a fall. The patient reports that her cat was running around her feet and she tripped and fell striking the back of her head on a glass table prompting her presentation to the ED for further evaluation. She denies LOC or other symptoms and otherwise denies headache, neck pain, fevers, chills, SOB, chest pain, nausea, vomiting, abdominal pain, or changes with urination or bowel movements. Past History - Past Medical History Allergies/Adverse Reactions: Allergies Allergy/AdvReac Type Severity Reaction Status Date / Time naproxen [From Naprosyn] AdvReac Intermediate Verified 12/06/18 08:01 Home Medications: Ambulatory Orders Ferrous Sulfate [Feosol] 325 mg PO DAILY 03/30/14 Simvastatin [Zocor -] 20 mg PO HS 04/16/14 Oliver/D3/Mag11/Zinc/Carbide Die Maker/Jonny/Bor [Caltrate 600+D Plus Tablet] 2 each PO DAILY Glipizide [Glipizide Xl] 5 mg PO BID 09/10/14 Magnesium Chloride [Slow-Mag -] 64 mg PO DAILY 09/10/14 Sitagliptin Phosphate [Januvia] 50 mg PO DAILY 04/13/17 Metoprolol Succinate [Toprol XL -] 25 mg PO DAILY #30 tab.sr.24h 08/18/18 Pramipexole Dihydrochloride [Mirapex -] 0.25 mg PO HS #30 tablet MDD 1 10/14/18 Apixaban [Eliquis] 2.5 mg PO BID 12/06/18 Benzonatate 200 mg PO TID PRN 12/06/18 Fluticasone Prop 0.05% Nasal [Flonase -] 1 - 2 spray NS DAILY 12/06/18 Pimavanserin Tartrate [Nuplazid] 34 mg PO DAILY 12/06/18 Quetiapine Fumarate [Seroquel -] 25 mg PO HS 12/06/18 Cephalexin [Keflex] 500 mg PO BID #14 capsule 12/08/18 Anemia: Yes Asthma: No Cardiac Disorders: Yes (atrial fibrillation, CAD) CVA: Yes (TIA) COPD: No CHF: No Diabetes: Yes (NIDDM) GI Disorders: (hernia) Disorders: Yes (chronic intermittent UTI) HTN: Yes Hypercholesterolemia: Yes Thyroid Disease: Yes (goiter) - Surgical History Abdominal Surgery: Yes (HERNIA) Appendectomy: No Cardiac Surgery: No Cholecystectomy: No Lung Surgery: No Neurologic Surgery: No Orthopedic Surgery: (arthritis finger surgery) - Immunization History Immunization Up to Date: No - Suicide/Smoking/Psychosocial Hx Smoking History: Unknown if ever smoked Have you smoked in the past 12 months: No Hx Alcohol Use: No Drug/Substance Use Hx: No Substance Use Type: None Hx Substance Use Treatment: No Review of Systems - Review of Systems Comments:: 03/01/19 01:25 Constitutional: No fevers, chills, fatigue, malaise HEENT: Head Trauma. No Rhinorrhea, nasal congestion, visual changes Cardiovascular: No chest pain, syncope, palpitations, lightheadedness Respiratory: No Cough, SOB, Hemoptysis, Gastrointestinal: No Abdominal pain, Nausea, Vomiting, Constipation, Diarrhea, Melena Genitourinary: No Dysuria, Frequency, Urgency, Hesitancy, Hematuria, Flank pain Musculoskeletal: No Myalgia, arthralgia Skin: No rashes, itching, bruising, pallor Neurologic: No Headache, Dizziness, Numbness, Weakness, or Tingling Psychiatric: No Hallucinations. No SI or HI *Physical Exam - Vital Signs Last Vital Signs Temp Pulse Resp BP Pulse Ox 98.6 F 88 20 120/66 97 02/28/19 21:40 02/28/19 21:40 02/28/19 21:40 02/28/19 21:40 02/28/19 21:40 - Physical Exam Comments: 03/01/19 01:26 General Appearance: Nourished. No Apparent Distress HEENT: EOMI, GONZALO. Atruamatic. No Pharyngeal Erythema, Tonsillar Exudate, Tonsillar Erythema Neck: C Midline c-spine tenderness to palpation. No Cervical Lymphadenopathy Full ROM Respiratory/Chest: Lungs Clear, Normal Breath Sounds. No Crackles, Rales, Rhonchi, Wheezing Cardiovascular: Regular Rhythm, Regular Rate. No Murmur, Gallops, Rubs Gastrointestinal/Abdominal: Normal Bowel Sounds, Soft. No Guarding, Rebound, Tenderness Musculoskeletal: No CVA Tenderness Extremity: Normal Capillary Refill Integumentary: Normal Color, Dry, Warm Neurologic: estimator printing II-XII NML intact, Fully Oriented, Alert, Normal Mood/Affect, Normal Response, Motor Strength 5/5. Heart Score/ECG Review #1 ECG reviewed & interpreted by me at: 06:18 03/01/19 06:18 HR 70 IA 218 QRS 122 QTc 457 Sinus Rhythm with 1st degree AV block Right Bundle Branch Block Left Anterior Fascicular Block No Acute ST Changes ED Treatment Course - LABORATORY CBC & Chemistry Diagram: 03/01/19 01:49 03/01/19 01:49 Medical Decision Making - Medical Decision Making 03/01/19 01:27 The patient is an 89 year old female with a history of HTN, HLD, DM, TIA, Afib on eloquis who presents for evaluation following a fall. Given the patient's history and physical exam, we will obtain a head and cervical spine CT. However , given the patient's anticoagulation on eloquis, she will likely require observation for repeat head CT to r/o delayed bleed should her current head CT be negative. We will continue to monitor and reassess while here in the ED. 03/01/19 05:[address] does not demonstrate any acute process as preliminarily read by our public relations director radiologist. Cervical spine CT demonstrates a nondisplaced spinous process fracture of C2 as preliminarily read by our public relations director radiologist. We discussed the case with Dr. Rodrigez with neurosurgery who reviewed the images and recommends a c-collar for comfort but no other intervention at this time. Given the patient's fall on anti-coagulation, she will require observation for repeat head CT. We discussed the case with the admitting team who accepted the patient for admission. *DC/Admit/Observation/Transfer Diagnosis at time of Disposition: Head trauma Qualifiers: Encounter type: initial encounter Qualified Code(s): S09.90XA - Unspecified injury of head, initial encounter Cervical spine fracture Qualifiers: Encounter type: initial encounter Cervical vertebra fracture level: C2 Fracture type: closed Fracture morphology: unspecified fracture morphology Fracture alignment: nondisplaced Qualified Code(s): S12.101A - Unspecified nondisplaced fracture of second cervical vertebra, initial encounter for closed fracture - Discharge Dispostion Condition at time of disposition: Stable - Referrals - Patient Instructions - Post Discharge Activity
[2019-03-01 02:23] LABS: BASO % 1.1 % (0-2.0); HEMATOCRIT 32.5 % (32.4-45.2); LYMPH % 19.5 % (8-40); MCH 32.1 pg (25.7-33.7); MCHC 33.8 g/dl (32.0-36.0); MEAN PLT VOLUME 7.7 fl (7.5-11.1); MONO % 14.3 % (3.8-10.2); NEUT % 62.1 % (42.8-82.8); PLATELET COUNT 203 K/MM3 (134-434); RBC 3.43 M/mm3 (3.60-5.2); RDW 12.9 % (11.6-15.6); WHITE BLOOD COUNT 4.6 K/mm3 (4.0-10.0)
[2019-03-01 02:26] LABS: ALBUMIN 3.4 g/dl (3.4-5.0); BILIRUBIN,TOTAL 0.9 mg/dL (0.2-1); BLOOD UREA NITROGEN 37.3 mg/dL (7-18); CALCIUM 9.1 mg/dL (8.5-10.1); CREATININE 1.6 mg/dL (0.55-1.3); POTASSIUM 4.3 mmol/L (3.5-5.1); TOT PROT 6.7 g/dl (6.4-8.2)
--- NOTE | 2019-03-01 03:43 | HP ---
Admitting History and Physical - Primary Care Physician PCP: Kurtis Yeh - Admission Chief Complaint: s/p Fall History of Present Illness: This is a 89 y/o woman from home. Who presents to the ED s/p fall hitting occiput due to tripping over her cat, hitting the table. Patient denies LOC. Patient denies TAFOYA, blurred vision, dizziness. Patient denies fever, chills, cough, SOB, CP, palpitations, AP, N/V/D, constipation, dysuria. 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 Cardiovascular: Yes: AFIB, CAD, HTN, Hyperlipdemia Gastrointestinal: Yes: GERD Renal/: Yes: Renal Inusuff Heme/Onc: Yes: Anemia, B12 Deficiency Musculoskeletal: Yes: Osteoarthritis Endocrine: Yes: Diabetes Mellitus - Past Surgical History Past Surgical History: Yes: Cataract Removal, Hernia Repair - Smoking History Smoking history: Unknown if ever smoked Have you smoked in the past 12 months: No - Alcohol/Substance Use Hx Alcohol Use: No - Social History ADL: Independent History of Recent Travel: No Home Medications - Allergies Allergies/Adverse Reactions: Allergies Allergy/AdvReac Type Severity Reaction Status Date / Time naproxen [From Naprosyn] AdvReac Intermediate Verified 12/06/18 08:01 - Home Medications Home Medications: Ambulatory Orders Ferrous Sulfate [Feosol] 325 mg PO DAILY 03/30/14 Simvastatin [Zocor -] 20 mg PO HS 04/16/14 Oliver/D3/Mag11/Zinc/Line Prep Cook/Jonny/Bor [Caltrate 600+D Plus Tablet] 2 each PO DAILY Glipizide [Glipizide Xl] 5 mg PO BID 09/10/14 Magnesium Chloride [Slow-Mag -] 64 mg PO DAILY 09/10/14 Sitagliptin Phosphate [Januvia] 50 mg PO DAILY 04/13/17 Metoprolol Succinate [Toprol XL -] 25 mg PO DAILY #30 tab.sr.24h 08/18/18 Pramipexole Dihydrochloride [Mirapex -] 0.25 mg PO HS #30 tablet MDD 1 10/14/18 Apixaban [Eliquis] 2.5 mg PO BID 12/06/18 Benzonatate 200 mg PO TID PRN 12/06/18 Fluticasone Prop 0.05% Nasal [Flonase -] 1 - 2 spray NS DAILY 12/06/18 Pimavanserin Tartrate [Nuplazid] 34 mg PO DAILY 12/06/18 Quetiapine Fumarate [Seroquel -] 25 mg PO HS 12/06/18 Cephalexin [Keflex] 500 mg PO BID #14 capsule 12/08/18 Family Disease History - Family Disease History Family History: Unable to Obtain Review of Systems - Review of Systems Constitutional: reports: No Symptoms Eyes: reports: No Symptoms HENT: reports: No Symptoms Neck: reports: No Symptoms Cardiovascular: reports: No Symptoms Respiratory: reports: No Symptoms Gastrointestinal: reports: No Symptoms Genitourinary: reports: No Symptoms Breasts: reports: No Symptoms Reported Musculoskeletal: reports: No Symptoms Integumentary: reports: No Symptoms Neurological: reports: No Symptoms Endocrine: reports: No Symptoms Hematology/Lymphatic: reports: No Symptoms Psychiatric: reports: No Symptoms Physical Examination Vital Signs: Vital Signs Temperature 98.6 F 02/28/19 21:40 Pulse Rate 88 02/28/19 21:40 Respiratory Rate 20 02/28/19 21:40 Blood Pressure 120/66 02/28/19 21:40 O2 Sat by Pulse Oximetry (%) 97 02/28/19 21:40 Constitutional: Yes: Anxious, Thin Eyes: Yes: WNL, Conjunctiva Clear, EOM Intact, PERRL HENT: Yes: WNL, Atraumatic, Normocephalic Neck: Yes: Supple, Trachea Midline, Other ([place] Collar) Cardiovascular: Yes: Regular Rate and Rhythm, S1, S2 Respiratory: Yes: WNL, Regular, CTA Bilaterally Gastrointestinal: Yes: WNL, Normal Bowel Sounds, Soft ...Rectal Exam: Yes: Deferred Renal/: Yes: WNL Breast(s): Yes: WNL Musculoskeletal: Yes: WNL Extremities: Yes: WNL Edema: No Peripheral Pulses WNL: Yes Neurological: Yes: WNL, Alert, Oriented, Cran Nerves II-XII Intact ...Motor Strength: WNL Psychiatric: Yes: WNL, Alert, Oriented Labs: CBC, BMP 03/01/19 01:49 07/09/19 01:49 Imaging - Results Chest X-ray: Pending Cat Scan: Image Reviewed EKG: Image Reviewed Problem List - Problems (1) Fall at home Code(s): W19.XXXA - UNSPECIFIED FALL, INITIAL ENCOUNTER; Y92.009 - UNSP PLACE IN UNS [facility]PRIVATE[facility] RESIDENCE PLACE (2) Cervical spine fracture Code(s): S12.9XXA - FRACTURE OF NECK, UNSPECIFIED, INITIAL ENCOUNTER Qualifiers: Encounter type: initial encounter Cervical vertebra fracture level: C2 Fracture type: closed Fracture morphology: unspecified fracture morphology Fracture alignment: nondisplaced Qualified Code(s): S12.101A - Unspecified nondisplaced fracture of second cervical vertebra, initial encounter for closed fracture (3) Head trauma Code(s): S09.90XA - UNSPECIFIED INJURY OF HEAD, INITIAL ENCOUNTER Qualifiers: Encounter type: initial encounter Qualified Code(s): S09.90XA - Unspecified injury of head, initial encounter (4) Diabetes mellitus Code(s): E11.9 - TYPE 2 DIABETES MELLITUS WITHOUT COMPLICATIONS Qualifiers: Diabetes mellitus type: type 2 (5) HTN (hypertension) Code(s): I10 - ESSENTIAL (PRIMARY) HYPERTENSION Qualifiers: Hypertension type: essential hypertension Qualified Code(s): I10 - Essential (primary) hypertension (6) Parkinson disease Code(s): G20 - PARKINSON'S DISEASE (7) Paroxysmal A-fib Code(s): I48.0 - PAROXYSMAL ATRIAL FIBRILLATION (8) Renal insufficiency Code(s): N28.9 - DISORDER OF KIDNEY AND URETER, UNSPECIFIED (9) Transient ischemic attack (TIA) Code(s): G45.9 - TRANSIENT CEREBRAL ISCHEMIC ATTACK, UNSPECIFIED Assessment/Plan This is a 89 y/o woman with a PMHx of: HTN, HLD, DM, CAD, Afib (on Eliquis), Renal Insufficiency, Anemia, OA. Admitted to Telemetry for Head Trauma, Cervical Fx for further evaluation of their emergent condition. Plan: Admit Cardiac Monitoring Head CT- neg ICH Will repeat 12hrs post secondary on AC Appreciate Neuro Consult C- Spine CT reviewed Appreciate Neurosurgery Consult- per ED resident: spoke with Dr. Bijal Rodrigez suggest cervical collar Neuro Checks Fall Precautions Hold Eliquis for now BGMs Continue other home meds when confirmed NPO Gentle IVF Chest Xray pending CBC, BMP tomorrow Dispo: Requires Inpatient Care Visit type - Emergency Visit Emergency Visit: Yes ED Registration Date: 02/28/19 Care time: The patient presented to the Emergency Department on the above date and was hospitalized for further evaluation of their emergent condition. - New Patient This patient is new to me today: Yes Date on this admission: 03/01/19 - Critical Care Critical Care patient: No
[2019-03-01] MEDS ORDERED: DEXTROSE 5%-0.45% SALINE 1,000 ML IV SCH (04:00)
--- NOTE | 2019-03-01 12:06 | EKG ---
Test Reason : Blood Pressure : / mmHG Vent. Rate : 070 BPM Atrial Rate : 070 BPM P-R Int : 218 ms QRS Dur : 122 ms QT Int : 424 ms P-R-T Axes : 057 -58 -26 degrees QTc Int : 457 ms POOR DATA QUALITY, INTERPRETATION MAY BE ADVERSELY AFFECTED SINUS RHYTHM WITH SINUS ARRHYTHMIA WITH 1ST DEGREE A-V BLOCK RIGHT BUNDLE BRANCH BLOCK LEFT ANTERIOR FASCICULAR BLOCK BIFASCICULAR BLOCK MINIMAL VOLTAGE CRITERIA FOR LVH, MAY BE NORMAL VARIANT T WAVE ABNORMALITY, CONSIDER LATERAL ISCHEMIA ABNORMAL ECG WHEN COMPARED WITH ECG OF 06-DEC-2018 08:36, PREMATURE ATRIAL COMPLEXES ARE NO LONGER PRESENT T WAVE INVERSION NOW EVIDENT IN LATERAL LEADS Confirmed by David Vera ([id number]) on 03/01/2019 12:05:54 PM Referred By: Confirmed By:David Vera
[2019-03-01 14:24] VITALS: PULSE 74
--- NOTE | 2019-03-01 15:14 | CONSULT ---
Consult - text type - Consultation Consultation Note: NEUROLOGY CONSULT APPRECIATED: Events reviewed and discussed with NEIL Ambrocio. Case discussed with daughter Tess over the phone. This 89 yo F lives with grandson upstairs and HHS 5 hours, 2 days a week. Grandson left for [place] on Thursday for 1 week. PMHX DM, ASHD, Afib, HTN, HLD. 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 Last seen in consult here on 12/07/18. Maintained on Sinemet 25/250 QID @ 6-10-2-6, Nuplazid 34 mg po daily. Now off pramipexole. Other meds:abixaban, glipizide, januvia, metoprolol 50 -> 20 mg qd, simvastatin , quetiapine 25 mg Hs, Now with recurrent admission to [facility] due to falls and UTI. Does not use her walker around the house. Admitted after fall backwards, tripping over her cat last evening sustaining "bump" to her head. Head CT (reviewed): Moderate atrophy. Chronic periventricular ischemic changes. Calcified intracranial carotid arteries. No acute pathology. CT of C spine: Poss nondisplaced fracture of distal C2 spinous process. Pt reports the neurosurgeon attempted a hard collar for her, but she "couldn't tolerate it" and is going to try a soft collar. Review of systems sig for persistent mostly nocturnal visual hallucinations and feeling of people "breaking into my house." MIROSLAVA: Cor reg. No bruit. Neck supple. Small hematoma noted to L occipital area. Neuro: Awake, alert, responsive. Ox "[facility]" January 30, 2019. TRUMP. Can't reverse. / recall @ 3 min. + glabella CNII-CNXII: Masked. EOM intact with full alamo. Tongue COSMO's and gag preserved. Motor: + Jaw and Rest tremor in hands. + cogwheeling. Bradykinetic. AJ 's absent. Decreased COSMO's. Plantars silent. Coordination: No FTN dystaxia but slowed Sensation: Reduced vibration in toes. Romberg - Gait: Flexed, shuffling. Impression: Fall with head trauma Parkinson's Disease Parkinson's Disease Psychosis Peripheral Neuropathy (c/w diabetes) Worsened by Toxic-Metabolic Encephalopathy (r/o recurrent UTI) Suggest: Await UA, C&S. Antibiotics and hydration as indicated Resume Sinemet 25/250 QID @ Continue Nuplazid 34 mg po qAm for PD related psychosis (patient should take her own meds). Continue quetiapine 25 mg HS -> 50 mg HS for insomnia and hallucinations Observe off pramipexole at this time Pt eval for gait safety with walker assessment services manager eval for further HHS and home safety check Thank you very much, Saravanan Hooker MD
[2019-03-01] MEDS ORDERED: THIAMINE HCL 200 MG/2 ML VIAL IVPB SCH (15:30)
--- NOTE | 2019-03-01 15:58 | PN ---
Progress Note, Physician Chief Complaint: Multiple Falls Parkinson's Disease History of Present Illness: Previous notes and events reviewed awake and alert NAD denies complaints of pain denies chest pain or SOB - Current Medication List Current Medications: Active Medications Carbidopa/Levodopa (Sinemet 25/250 -) 1 each PO QID [facility] Glipizide (Glucotrol Xl -) 5 mg PO BID [facility] Dextrose/Sodium Chloride (D5-1/2ns -) 1,000 mls @ 30 mls/hr IV ASDIR [facility] Last Admin: 03/01/19 04:05 Dose: 30 mls/hr Magnesium Chloride (Slow-Mag -) 64 mg PO DAILY [facility] Metoprolol Succinate (Toprol Xl -) 25 mg PO DAILY [facility] Non-Formulary Medication (Ferrous Sulfate [Feosol]) 325 mg PO DAILY [facility] Non-Formulary Medication (Pimavanserin Tartrate [Nuplazid]) 34 mg PO DAILY [facility] Non-Formulary Medication (Simvastatin) 20 mg PO HS [facility] Quetiapine Fumarate (Seroquel -) 25 mg PO HS [facility] Sitagliptin Phosphate (Januvia -) 50 mg PO DAILY [facility] Thiamine HCl (Vitamin B1 Injection -) 250 mg IVPB TID [facility] Stop: 03/04/19 15:29 - Objective Vital Signs: Vital Signs Temperature 97.8 F 03/01/19 14:00 Pulse Rate 74 03/01/19 14:00 Respiratory Rate 20 03/01/19 14:00 Blood Pressure 137/79 03/01/19 14:00 O2 Sat by Pulse Oximetry (%) 99 03/01/19 12:15 Constitutional: Yes: No Distress, Calm Eyes: Yes: Conjunctiva Clear HENT: Yes: Other (bump L occipital) Cardiovascular: Yes: Regular Rate and Rhythm Respiratory: Yes: Regular, CTA Bilaterally Gastrointestinal: Yes: Normal Bowel Sounds, Soft Musculoskeletal: Yes: Muscle Weakness Extremities: Yes: WNL Edema: No Neurological: Yes: Alert, Oriented Psychiatric: Yes: Alert, Oriented Labs: CBC, BMP 03/01/19 01:49 03/01/19 01:49 Problem List - Problems (1) Cervical spine fracture Assessment/Plan: -CT scan shows possible non displaced fracture in the posterior aspect of C2 posterior spinous process -Neurosurgery consult Code(s): S12.9XXA - FRACTURE OF NECK, UNSPECIFIED, INITIAL ENCOUNTER Qualifiers: Encounter type: initial encounter Cervical vertebra fracture level: C2 Fracture type: closed Fracture morphology: unspecified fracture morphology Fracture alignment: nondisplaced Qualified Code(s): S12.101A - Unspecified nondisplaced fracture of second cervical vertebra, initial encounter for closed fracture (2) Fall at home Assessment/Plan: -Neurology and Cardiology consult -fall precautions -neuro checks -Carotid US -2/2 to UTI?--UA/UC pending -PT Code(s): W19.XXXA - UNSPECIFIED FALL, INITIAL ENCOUNTER; Y92.009 - UNSP PLACE IN UNSP NON-INSTITUT (PRIVATE) RESIDENCE PLACE (3) REZA (acute kidney injury) Assessment/Plan: -BUN/Cr 37.3/1.6 -IV hydration -monitor renal function Code(s): N17.9 - ACUTE KIDNEY FAILURE, UNSPECIFIED (4) Diabetes mellitus Assessment/Plan: -Januvia, Glipizide -BGM -HgA1c -diabetic diet Code(s): E11.9 - TYPE 2 DIABETES MELLITUS WITHOUT COMPLICATIONS Qualifiers: Diabetes mellitus type: type 2 (5) HTN (hypertension) Assessment/Plan: -Metoprolol -low Na diet Code(s): I10 - ESSENTIAL (PRIMARY) HYPERTENSION Qualifiers: Hypertension type: essential hypertension Qualified Code(s): I10 - Essential (primary) hypertension (6) Hyperlipidemia Assessment/Plan: -simvastatin -lipid panel Code(s): E78.5 - HYPERLIPIDEMIA, UNSPECIFIED Qualifiers: Hyperlipidemia type: pure hypercholesterolemia Qualified Code(s): E78.00 - Pure hypercholesterolemia, unspecified; E78.0 - Pure hypercholesterolemia (7) Parkinson disease Assessment/Plan: -Neurology consult -Sinemet Code(s): G20 - PARKINSON'S DISEASE (8) Paroxysmal A-fib Assessment/Plan: -Eliquis on hold due to fall--will resume on discharge -Tele monitoring -cardiology consult Code(s): I48.0 - PAROXYSMAL ATRIAL FIBRILLATION Assessment/Plan SCD see progress notes
--- NOTE | 2019-03-01 16:27 | CON.CARD ---
Consult Consult Specialty:: Cardiology Reason for Consultation:: fall - History of Present Illness History of Present Illness: 89 y/o woman from home. Who presents to the ED s/p fall hitting occiput due to tripping over her cat, hitting the table. Patient denies LOC. There is ho PAF, HTN, TIA, CAD. 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 Cardio/Vascular: Yes: AFIB, CAD, HTN, Hyperlipdemia Gastrointestinal: Yes: GERD Renal/: Yes: Renal Inusuff Musculoskeletal: Yes: Osteoarthritis Endocrine: Yes: Diabetes Mellitus - Past Surgical History Past Surgical History: Yes: Cataract Removal, Hernia Repair - Alcohol/Substance Use Hx Alcohol Use: No - Smoking History Smoking history: Unknown if ever smoked Have you smoked in the past 12 months: No - Social History ADL: Independent History of Recent Travel: No Home Medications - Allergies Allergies/Adverse Reactions: Allergies Allergy/AdvReac Type Severity Reaction Status Date / Time naproxen [From Naprosyn] AdvReac Intermediate Verified 12/06/18 08:01 - Home Medications Home Medications: Ambulatory Orders Ferrous Sulfate [Feosol] 325 mg PO DAILY 03/30/14 Simvastatin [Zocor -] 20 mg PO HS 04/16/14 Oliver/D3/Mag11/Zinc/Plant Associate/Jonny/Bor [Caltrate 600+D Plus Tablet] 2 each PO DAILY Glipizide [Glipizide Xl] 5 mg PO BID 09/10/14 Magnesium Chloride [Slow-Mag -] 64 mg PO DAILY 09/10/14 Sitagliptin Phosphate [Januvia] 50 mg PO DAILY 04/13/17 Metoprolol Succinate [Toprol XL -] 25 mg PO DAILY #30 tab.sr.24h 08/18/18 Pramipexole Dihydrochloride [Mirapex -] 0.25 mg PO HS #30 tablet MDD 1 10/14/18 Apixaban [Eliquis] 2.5 mg PO BID 12/06/18 Benzonatate 200 mg PO TID PRN 12/06/18 Fluticasone Prop 0.05% Nasal [Flonase -] 1 - 2 spray NS DAILY 12/06/18 Pimavanserin Tartrate [Nuplazid] 34 mg PO DAILY 12/06/18 Quetiapine Fumarate [Seroquel -] 25 mg PO HS 12/06/18 Cephalexin [Keflex] 500 mg PO BID #14 capsule 12/08/18 Review of Systems - Review of Systems Constitutional: reports: No Symptoms Eyes: reports: No Symptoms HENT: reports: No Symptoms Neck: reports: No Symptoms Cardiovascular: reports: No Symptoms Respiratory: reports: No Symptoms Gastrointestinal: reports: No Symptoms Genitourinary: reports: No Symptoms Breasts: reports: No Symptoms Reported Vital Signs: Vital Signs Temperature 97.8 F 03/01/19 14:00 Pulse Rate 74 03/01/19 14:00 Respiratory Rate 20 03/01/19 14:00 Blood Pressure 137/79 03/01/19 14:00 O2 Sat by Pulse Oximetry (%) 99 03/01/19 12:15 Constitutional: Yes: Well Nourished, No Distress Eyes: Yes: Conjunctiva Clear, EOM Intact HENT: Yes: Atraumatic, Normocephalic Neck: Yes: Supple, Trachea Midline Respiratory: Yes: Regular, CTA Bilaterally Gastrointestinal: Yes: Normal Bowel Sounds JVD: No Carotid Bruit: No PMI: Non-Displaced Heart Sounds: Yes: S1, S2 Murmur: No: Systolic Murmur, Diastolic Murmur Edema: No - Other Data Labs, Other Data: CBC, BMP 03/01/19 01:49 03/01/19 01:49 NSR RBBB LAHB Problem List - Problems (1) Fall Code(s): W19.XXXA - UNSPECIFIED FALL, INITIAL ENCOUNTER Qualifiers: Encounter type: initial encounter Qualified Code(s): W19.XXXA - Unspecified fall, initial encounter (2) Paroxysmal A-fib Code(s): I48.0 - PAROXYSMAL ATRIAL FIBRILLATION Assessment/Plan 89 y/o woman from home. Who presents to the ED s/p fall hitting occiput due to tripping over her cat, hitting the table. Patient denies LOC. There is ho PAF, HTN, TIA, CAD. Mechanical fall. Telem NSR Continue with eliquis Will sign off reconsult PRN
[2019-03-01] MEDS ORDERED: glipiZIDE-XL 5 MG TAB.ER.24 PO SCH (16:30)
--- NOTE | 2019-03-01 16:30 | CONSULT ---
Consult - text type - Consultation Consultation Note: NEUROSURGERY CONSULTATION Ashly Kohler is an 89 year old female who was in her relative state of good health until Thursday when she fell while playing with her cat. She struck the back of her head and due to her use of Eliquis, was brought to the ER for evaluation. Head CT was unremarkable for acute traumatic pathology. She was noted to have distal C2 spinous process fracture of her bifid spinous process without displacement. The patient remains at her Neurological baseline and has good range of motion of her neck. At this point, her fracture is not obviously destabilizing and will likely heal with immobilization or time. Patient was given a rigid collar which she could not tolerate. If she has no significant pain, she does not require an orthosis, however, if her pain persists, a soft collar could be considered. At this point, no acute Neurosurgical intervention is indicated or planned. All questions were answered. Patient was given contact information and a list of warning signs which would prompt further evaluation.
[2019-03-01 17:12] VITALS: BP 125/75; TEMP 98.1; BMI 22.3
[2019-03-01] MEDS ORDERED: CARBIDOPA/LEVODOPA 25/250 TABLET (FP) PO SCH (18:00)
[2019-03-01] MEDS ORDERED: ATORVASTATIN CA 10 MG TABLET (FP) PO SCH (22:00)
[2019-03-01] MEDS ORDERED: QUEtiapine FUMARATE 25 MG TABLET (FP) PO SCH (22:00)
[2019-03-02] MEDS ORDERED: FERROUS SO4 325 MG TABLET (FP) PO SCH (07:00)
[2019-03-02] MEDS ORDERED: sitaGLIPtin PHOSPHATE 50 MG TABLET PO SCH (10:00)
[2019-03-02] MEDS ORDERED: metoPROLOL SUCCINATE 25 MG TAB.SR.24H (FP) PO SCH (10:00)
[2019-03-02] MEDS ORDERED: MAGNESIUM CL 64 MG TABLET.SA PO SCH (10:00)
[2019-03-02] MEDS ORDERED: PATIENT'S OWN MEDICATION (NON-FORMULARY) (Pimavanserin Tartrate [Nuplazid] 34 MG) PO SCH (10:00)
== END 2019-03-01 18:35 | disposition home or self-care (01) | DRG 552 ==
LOC: JER 21:36 → JERBED 03-01 03:18 → J4W 03-01 13:45
PROVIDERS: ADMIT Family Medicine; ATTEND Family Medicine
DX: S12.101A Unspecified nondisplaced fracture of second cervical vertebra, initial encounter for closed fracture (principal); N17.9 Acute kidney failure, unspecified; S09.90XA Unspecified injury of head, initial encounter; I10 Essential (primary) hypertension; E78.5 Hyperlipidemia, unspecified; Z79.01 Long term (current) use of anticoagulants; Z86.73 Personal history of transient ischemic attack (TIA), and cerebral infarction without residual deficits; I25.10 Atherosclerotic heart disease of native coronary artery without angina pectoris; G20 Parkinson's disease; D64.9 Anemia, unspecified; I48.0 Paroxysmal atrial fibrillation; E11.42 Type 2 diabetes mellitus with diabetic polyneuropathy; F29 Unspecified psychosis not due to a substance or known physiological condition; R29.6 Repeated falls; Z79.84 Long term (current) use of oral hypoglycemic drugs; I44.0 Atrioventricular block, first degree; I45.10 Unspecified right bundle-branch block; I44.4 Left anterior fascicular block; W01.0XXA Fall on same level from slipping, tripping and stumbling without subsequent striking against object, initial encounter; Y93.9 Activity, unspecified; Y99.8 Other external cause status; Y92.098 Other place in other non-institutional residence as the place of occurrence of the external cause
CPT/HCPCS: 36415; 70450-TC; 71045-TC-FY; 72125-TC; 80053; 85025; 93005; 93010; 99284-25